=== PATIENT | female | born 1945 | race Caucasian/White ===

== ENCOUNTER → 2019-01-09 | Outpatient (CLI) | payer MEDICARE ==
--- NOTE | 2019-01-09 08:03 | US ---
EXAMINATION TYPE: US liver DATE OF EXAM: 01/09/2019 COMPARISON: NONE CLINICAL HISTORY: K74.60 Unspecified cirrhosis of liver. Pt states ETOH abuse x 60 yrs EXAM MEASUREMENTS: Liver Length: 14.0 cm Gallbladder Wall: 0.3 cm CBD: 0.9 cm Right Kidney: 10.6 x 5.3 x 4.8 cm Pancreas: wnl, tail obscured by overlying bowel gas Liver: Lobulated contour, prominent caudate lobe, coarse echotexture, PV and QUEZADA show hepatopedal marquez w Gallbladder: wall thickness upper limits of normal, small gallstones and polyp at fundus Evidence for sonographic Urbano's sign: No CBD: Dilated Right Kidney: wnl Visualized pancreas is felt within normal limits. Visualized liver is heterogeneously hyperechoic. Ev aluation for focal masses is suboptimal due to the heterogeneity. No suspicious intrahepatic ductal d ilatation is seen. Technologist documents satisfactory phasicity and hepatopedal flow within the hepa tic artery and satisfactory monophasic hepatopedal flow in the portal vein near conrad hepatis. No josh rounding ascites is seen. Common bile duct measures 9 mm which is mildly thickened. Gallbladder shows small mobile gallstones dependently. Wall thickness is upper limits of normal. No surrounding fluid is present. Sonographic Urbano's sign is negative. Limited images right kidney show no gross hydronep hrosis. IMPRESSION: Heterogeneous hyperechoic appearance of liver is likely product of underlying hepatocellu lar disease. No ascites evident currently. Mild dilated common bile duct present.
== END | disposition home or self-care (01) ==
LOC: RADUSWWP 07:11
PROVIDERS: ATTEND Family Medicine
DX: K83.8 Other specified diseases of biliary tract (principal)
CPT/HCPCS: 76705; 93976

== ENCOUNTER 2019-03-06 08:21 | Day surgery (SDC) | payer MEDICARE ==
[2019-03-04 13:36] VITALS: BMI 26.4
[~2019-03-06 08:21] MED LIST: DEXAMETHASONE SOD PHOSPHATE 10 MG/ML 1 ML VIAL IV ONE; HEPARIN SODIUM,PORCINE 5,000 UNIT/ML 1 ML VIAL SQ ONE; LACTATED RINGERS 1,000 ML IV SCH; LIDOCAINE 1% 20 ML VIAL (10MG/ML) FOR IV START INTRADERMA PRN; MIDAZOLAM (PF) 2 MG/2 ML VIAL IV PRN; ONDANSETRON 4 MG/2 ML VIAL IVP ONE; SCOPOLAMINE 1.5MG/72HR PATCH TRANSDERM ONE; ceFAZolin IN SWFI 2 GM/20 ML SYRINGE IVP ONE
[2019-03-06 08:46] VITALS: RESP 16
--- NOTE | 2019-03-06 10:10 | P.GSHP ---
History of Present Illness H&P Date: 03/06/19 Chief Complaint: Right upper quadrant pain This a 73-year-old female status post was run quadrant pain. Patient's workup found have gallstones. She was also today for laparoscopic cholecystectomy. Past Medical History Past Medical History: Liver Disease Additional Past Medical History / Comment(s): "BORDER LINE DIABETES"- WATCHES DIET., STATES "BAD LIVER" FROM ALCOHOL., ABD PAIN FROM GALL BLADDER. History of Any Multi-Drug Resistant Organisms: None Reported Past Surgical History: Orthopedic Surgery Additional Past Surgical History / Comment(s): knee surgery, nasal cautery. Past Anesthesia/Blood Transfusion Reactions: No Reported Reaction Past Psychological History: Anxiety Smoking Status: Never smoker Past Alcohol Use History: Heavy Additional Past Alcohol Use History / Comment(s): states no alcohol in 2 days, states usuallly 6 beers/day. Past Drug Use History: None Reported - Past Family History Father Family Medical History: Cancer Additional Family Medical History / Comment(s): stomach cancer Medications and Allergies Home Medications Medication Instructions Recorded Confirmed Type ALPRAZolam [Xanax] 0.25 mg PO BID 05/17/15 03/06/19 History Allergies Allergy/AdvReac Type Severity Reaction Status Date / Time diphenhydramine HCl Allergy OVER Verified 03/06/19 08:36 [From Benadryl] SEDATED Surgical - Exam Vital Signs Temp Pulse Resp BP Pulse Ox 97.2 F L 79 16 170/71 100 03/06/19 08:39 03/06/19 08:39 03/06/19 08:39 03/06/19 08:39 03/06/19 08:39 - General well developed, well nourished, no distress - Eyes PERRL - ENT normal pinna - Neck no masses - Respiratory normal expansion - Cardiovascular Rhythm: regular - Abdomen Abdomen: soft, non tender Assessment and Plan Assessment: Right quadrant pain Cholelithiasis We'll perform laparoscopic cholecystectomy.
[2019-03-06] MEDS ORDERED: LIDOCAINE 1% INJ 10MG/ML (20 ML MDV) ONE (10:32)
[2019-03-06] MEDS ORDERED: fentaNYL (PF) 50 MCG/ML 2 ML AMP ONE (10:32)
[2019-03-06] MEDS ORDERED: PROPOFOL 10 MG/ML 20 ML VIAL IV ONE (10:32)
[2019-03-06] MEDS ORDERED: MIDAZOLAM 2 MG/2 ML VIAL ONE (10:32)
[2019-03-06] MEDS ORDERED: ROCURONIUM BROMIDE 10 MG/ML 10 ML VIAL IV ONE (10:32)
[2019-03-06] MEDS ORDERED: BUPIVACAIN-EPI 0.5%-1:200,000 30 ML VIAL SQ ONE (10:58)
[2019-03-06] MEDS ORDERED: LACTATED RINGERS 1,000 ML IV ONE (11:12)
--- NOTE | 2019-03-06 11:41 | P.OP ---
Date of Procedure: 03/06/19 Preoperative Diagnosis: Cholecystitis Cholelithiasis Postoperative Diagnosis: Cholecystitis Cholelithiasis Cirrhosis Procedure(s) Performed: Laparoscopic cholecystectomy Anesthesia: ANANDA Surgeon: Reji Morales Estimated Blood Loss (ml): 30 Pathology: other (Gallbladder) Condition: stable Disposition: PACU Description of Procedure: The patient was placed on the operating table. The patient received a general endotracheal tube anesthesia. The patients abdomen was prepped and draped in the usual sterile fashion. Through an infraumbilical stab incision, the fascia of the anterior abdominal wall was grasped with a pair of Kochers and then the Veress needle was placed in the peritoneal cavity. Position of the Veress needle was confirmed with positive drop test. The abdomen was then insufflated. After adequate insufflation, the 10 mm trocar was placed in the peritoneal cavity. Following this the laparoscope was placed in the peritoneal cavity. The patient was placed in the head-up, right side up position and then a 5 mm trocar was placed in the right lateral and right subcostal position under direct visualization. A 8 mm trocar was placed in the epigastric position. There appeared to be serosal liver. The gallbladder was grasped in the fundus and infundibulum. Traction on the gallbladder was placed in the lateral and the cephalad positions. The triangle of Calot was visualized.. The cystic duct was bluntly dissected until the union of the cystic duct and common bile duct was seen. A critical view of safety was achieved. The cystic duct was then divided and sealed with the Harmonic scissors. A PDS Endoloop was then pl aced throughout the cystic duct stump. The cystic artery divided and sealed with the Harmonic scissors. The gallbladder was then removed from the liver bed using Harmonic scissors. The gallbladder was then extracted through the epigastric port site. Operative field was checked for any bleeding spots and Harmonic scissors was used to coagulate the liver bed. Cautery was used to coagulate the liver bed. There is no bleeding seen. The abdomen was irrigated. The trocars were removed. The skin was closed using interrupted 3-0 Vicryl suture. Dermabond dressing were applied. The patient tolerated the procedure well.
[2019-03-06 11:42] VITALS: TEMP 97.1
[2019-03-06] MEDS: HYDROmorphone 0.5 MG/0.5 ML SYRINGE IVP PRN ×2 (11:46→11:53)
[2019-03-06] MEDS ORDERED: HYDROcodone/APAP 7.5-325MG 1 EACH TAB PO ONE (12:35)
[2019-03-06 13:00] VITALS: BP 114/57; PULSE 64
== END 2019-03-06 14:06 | disposition home or self-care (01) ==
LOC: OR 08:21
PROVIDERS: ATTEND Surgery
DX: K80.12 Calculus of gallbladder with acute and chronic cholecystitis without obstruction (principal); R73.03 Prediabetes; E78.00 Pure hypercholesterolemia, unspecified; G47.00 Insomnia, unspecified; F41.0 Panic disorder [episodic paroxysmal anxiety]; F41.1 Generalized anxiety disorder; F10.20 Alcohol dependence, uncomplicated; K70.30 Alcoholic cirrhosis of liver without ascites; M17.12 Unilateral primary osteoarthritis, left knee; Z79.899 Other long term (current) drug therapy; Z88.8 Allergy status to other drugs, medicaments and biological substances
CPT/HCPCS: 88304; 47562; J2250 ×2; J1644; J1100; J2405; J2001; J3010; J2704; J1170; J0690

== ENCOUNTER 2019-08-05 10:56 | Emergency (ER) | payer MEDICARE ==
[2019-08-05 11:07] VITALS: RESP 18; TEMP 97.5
[2019-08-05] MEDS ORDERED: KETOROLAC 30 MG/ML 1 ML VIAL IM STA (11:26)
[2019-08-05 13:50] VITALS: BP 144/67; PULSE 86
--- NOTE | 2019-08-05 13:52 | XR ---
EXAMINATION TYPE: XR pelvis AP view, XR sacrum coccyx DATE OF EXAM: 08/05/2019 CLINICAL HISTORY: Fall with lower back pain, sacral and coccygeal pain. TECHNIQUE: A single AP view of the pelvis is obtained. 2 views of the sacrum were also obtained. COMPARISON: None. FINDINGS: There is 3 mm anterior subluxation of the second most distal coccygeal segment with 5 mm o f diastases. Pseudoarticulation is seen of the left L5 transverse process with the iliac bone. Sacroi liac joints demonstrate mild sclerosis but are maintained without widening and are overall symmetric. Moderate degenerative changes of the hips. Phleboliths noted in the pelvis. Degenerative changes of the lumbosacral junction are also moderate. IMPRESSION: Subluxation of the second most distal coccygeal segment with diastases.
--- NOTE | 2019-08-05 13:53 | ED ---
General Adult HPI - General Chief complaint: Extremity Injury, Lower Stated complaint: Fell hurt tailbone Time Seen by Provider: 08/05/19 11:20 Source: patient, RN notes reviewed Mode of arrival: ambulatory Limitations: no limitations - History of Present Illness Initial comments: 74-year-old female presents to the emergency department for a chief complaint of fall. Patient states that 3 days ago she fell while getting out of bed it. She states she hurt her tailbone. States it is painful to sit on. States it is painful to move around because of this. Denies any difficulty moving her hips or walking. Denies hitting her head. Denies any lumbar pain.Patient has no other complaints at this time including shortness of breath, chest pain, abdom inal pain, nausea or vomiting, headache, or visual changes. - Related Data Home Medications Medication Instructions Recorded Confirmed ALPRAZolam [Xanax] 0.5 mg PO BID PRN 08/05/19 08/05/19 Previous Rx's Medication Instructions Recorded HYDROcodone/APAP 5-325MG [[place] 1 tab PO Q6HR PRN #11 tab 08/05/19 5-325] Allergies Allergy/AdvReac Type Severity Reaction Status Date / Time diphenhydramine HCl Allergy OVER Verified 08/05/19 11:48 [From Benadryl] SEDATED Review of Systems ROS Statement: Those systems with pertinent positive or pertinent negative responses have been documented in the HPI. ROS Other: All systems not noted in ROS Statement are negative. Past Medical History Past Medical History: Liver Disease Additional Past Medical History / Comment(s): STATES "BAD LIVER" FROM ALCOHOL History of Any Multi-Drug Resistant Organisms: None Reported Past Surgical History: Cholecystectomy, Orthopedic Surgery Additional Past Surgical History / Comment(s): knee surgery, nasal cautery. Past Anesthesia/Blood Transfusion Reactions: No Reported Reaction Past Psychological History: Anxiety Smoking Status: Never smoker Past Alcohol Use History: Daily, Heavy Past Drug Use History: None Reported - Past Family History Father Family Medical History: Cancer Additional Family Medical History / Comment(s): stomach cancer General Exam Limitations: no limitations General appearance: alert, in no apparent distress Head exam: Present: atraumatic, normocephalic, normal inspection Eye exam: Present: normal appearance, PERRL, EOMI. Absent: scleral icterus, conjunctival injection, periorbital swelling ENT exam: Present: normal exam, mucous membranes moist Neck exam: Present: normal inspection, full ROM. Absent: tenderness, meningismus, lymphadenopathy Respiratory exam: Present: normal lung sounds bilaterally. Absent: respiratory distress, wheezes, rales, rhonchi, stridor Cardiovascular Exam: Present: regular rate, normal rhythm, normal heart sounds. Absent: systolic murmur, diastolic murmur, rubs, gallop, clicks GI/Abdominal exam: Present: soft, normal bowel sounds. Absent: distended, tenderness, guarding, rebound, rigid Extremities exam: Present: other (Patient ambulatory on lower extremities. Able to flex and extend both hips.) Back exam: Present: other (minimal ecchymosis noted over the coccygeal area). Absent: vertebral tenderness (no lumbar spine tenderness) Neurological exam: Present: alert Psychiatric exam: Present: normal affect, normal mood Course Vital Signs 08/05/19 08/05/19 11:04 13:48 Temperature 97.5 F L Pulse Rate 71 86 Respiratory 18 18 Rate Blood Pressure 116/63 144/67 O2 Sat by Pulse 97 97 Oximetry Medical Decision Making - Medical Decision Making X-ray of the coccyx shows a 3 mm anterior subluxation of the second most distal coccygeal segment. This is consistent with physical exam. Patient requesting something for pain and states [place] as helped in the past. Patient prescribed a small course of this. Recommended donut pillow. Recommended she follow up with primary care in return if she has any worsening symptoms. Disposition Clinical Impression: Fractured coccyx Disposition: HOME SELF-CARE Condition: Good Instructions (If sedation given, give patient instructions): Coccyx Injury (ED) Additional Instructions: Please take Motrin and Tylenol for pain. If pain is severe take [place]. Do not drive or operate machinery while taking this. Use donut pillow. Please follow- up with primary care in 1-2 days. Return to the emergency department if you have any worsening symptoms. Prescriptions: HYDROcodone/APAP 5-325MG [[place] 5-325] 1 tab PO Q6HR PRN #11 tab PRN Reason: Pain Is patient prescribed a controlled substance at d/c from ED?: Yes When asked, does pt state using other controlled substances?: No If prescribed controlled substance>3 days was MAPS reviewed?: Prescribed <3 Days If opioid is for acute pain is fill amount 7 days or less?: Yes If Rx opioid, was Start Talking consent form obtained?: Yes Referrals: Yvon Lentz MD [Primary Care Provider] - 1-2 days Time of Disposition: 14:10
== END 2019-08-05 14:29 | disposition home or self-care (01) ==
LOC: EC 10:56
DX: S32.2XXA Fracture of coccyx, initial encounter for closed fracture (principal); F41.9 Anxiety disorder, unspecified; Z88.8 Allergy status to other drugs, medicaments and biological substances; W06.XXXA Fall from bed, initial encounter
CPT/HCPCS: 72170; 72220; 99283; 96372; J1885

== ENCOUNTER 2019-10-27 11:31 | Emergency (ER) | payer MEDICARE ==
[2019-10-27 12:53] VITALS: TEMP 98.3
[2019-10-27] MEDS ORDERED: SODIUM CHLORIDE 0.9% 1,000 ML IV STA (13:25)
[2019-10-27] MEDS ORDERED: DIPH,PERTUS(ACELL)TETVAC-LF 0.5 ML VIAL IM ONE (13:26)
--- NOTE | 2019-10-27 13:29 | ED ---
General Adult HPI - General Chief complaint: Fall Stated complaint: fall/head lac & back pain Time Seen by Provider: 10/27/19 13:12 Source: patient Mode of arrival: ambulatory - History of Present Illness Initial comments: Dictation was produced using [employer] dictation software. please excuse any grammatical, word or spelling errors. Chief Complaint: 74-year-old female presents with head trauma History of Present Illness: 74-year-old female she presents to the emergency department after fall. Approximately 3 PM yesterday patient states she slipped and fell backwards. Patient states she's she's been feeling uneasy on her legs especially with ambulating all day yesterday. Patient states that after the fall she had a headache. 7 come to the emergency department yesterday. Today she states that she was urged by her daughter,. Patient did suffer a laceration over where she struck her head yesterday. She denies any neck pain. Denies any numbness and paresthesias. Denies any urinary complaints. Denies any cough. Denies any loss of consciousness. Denies any other complaints. The ROS documented in this emergency department record has been reviewed and confirmed by me. Those systems with pertinent positive or negative responses have been documented in the HPI. All other systems are other negative and/or noncontributory. PHYSICAL EXAM: General Impression: Alert and oriented x3, not in acute distress HEENT: 2 x 2 centimeters swelling over the right occiput with small 1 cm laceration, extra-ocular movements intact, pupils equal and reactive to light bilaterally, mucous membranes moist. Cardiovascular: Heart regular rate and rhythm, S1&S2 audible, no murmurs, rubs or gallops Chest: Lungs clear to auscultation bilaterally, no rhonchi, no wheeze, no rales Abdomen: Bowel sounds present, abdomen soft, non-tender, non-distended, no organomegaly Musculoskeletal: Pulses present and equal in all extremities, no peripheral edema Motor: no focal deficits noted Neurological: CN II-XII grossly intact, no focal motor or sensory deficits noted Skin: Intact with no visualized rashes Psych: Normal affect and mood ED course: 74-year-old female presents after fall. She complains of gait difficulties since yesterday which caused her to fall. Vital signs upon arrival are within acceptable limits. Medications reviewed. Patient is not on anticoagulation medications. Lab data evaluation obtained. Mild leukopenia of 3.4. Coag panel unremarkable. Metabolic panel is negative. No Acidosis. AST is 84. Urinalysis shows greater than 182 white blood cells. Serum alcohol is 124. Computed tomography scan of the shows negative head and C-spine CT. Lumbar CT shows acute comminuted slightly displaced fracture through anterior superior L1 vertebral involving both endplates. Discussed these findings with patient that we recommend admitting her to the hospital. She refuses. Patient understands that she has urinary tract infection and findings of acute fracture in her back that could get worse. Patient does have alcohol at slightly elevated however she is coherent and understandable and agreeable. She is in the company of her family who can take care of her. Patient requests that she be discharge. Risk and benefits were discussed. Patient was given 1 g of cephalexin prior to discharge. Patient will sign out AGAINST MEDICAL ADVICE. Risks, Benefits, and Treatment alternatives were discussed in detail with the p atient. The patient is alert and oriented X 3 and has the capacity to make an informed decision. The risks of increased morbidity including the possibly of were explained to and understood by the patient who is choosing to leave against medical advice. The patient is encouraged to return any time should they want further treatment and diagnostic investigation. EKG interpretation: Ventricular rate 64, normal sinus rhythm, KS interval 200, QRS 86, QTC 445. No KS prolongation, no QTC prolongation, no ST or T-wave changes noted. EKG compared to a 05/17/2015 showing no changes. Overall, this EKG is unremarkable - Related Data Home Medications Medication Instructions Recorded Confirmed ALPRAZolam [Xanax] 0.25 - 0.5 mg PO DAILY PRN 08/05/19 10/27/19 Previous Rx's Medication Instructions Recorded Cephalexin [Keflex] 500 mg PO Q6HR 5 Days #20 cap 10/27/19 Allergies Allergy/AdvReac Type Severity Reaction Status Date / Time diphenhydramine HCl Allergy OVER Verified 10/27/19 15:05 [From Benadryl] SEDATED acetaminophen [From Tylenol] AdvReac Abn liver Verified 10/27/19 15:05 function Review of Systems ROS Statement: Those systems with pertinent positive or pertinent negative responses have been documented in the HPI. ROS Other: All systems not noted in ROS Statement are negative. Past Medical History Past Medical History: Liver Disease Additional Past Medical History / Comment(s): STATES "BAD LIVER" FROM ALCOHOL History of Any Multi-Drug Resistant Organisms: None Reported Past Surgical History: Cholecystectomy, Orthopedic Surgery Additional Past Surgical History / Comment(s): knee surgery, nasal cautery. Past Anesthesia/Blood Transfusion Reactions: No Reported Reaction Past Psychological History: Anxiety, Panic Disorder Smoking Status: Never smoker Past Alcohol Use History: Daily, Heavy Past Drug Use History: None Reported - Past Family History Father Family Medical History: Cancer Additional Family Medical History / Comment(s): stomach cancer Course Vital Signs 10/27/19 12:47 Temperature 98.3 F Pulse Rate 68 Respiratory 18 Rate Blood Pressure 143/86 O2 Sat by Pulse 99 Oximetry Medical Decision Making - Lab Data Result diagrams: 10/27/19 13:32 10/27/19 13:32 Lab Results 10/27/19 10/27/19 10/27/19 Range/Units 13:32 13:32 13:32 WBC 3.4 L (3.8-10.6) k/uL RBC 4.19 (3.80-5.40) m/uL Hgb 13.1 (11.4-16.0) gm/dL Hct 40.7 (34.0-46.0) % MCV 97.2 (80.0-100.0) fL MCH 31.2 (25.0-35.0) pg MCHC 32.1 (31.0-37.0) g/dL RDW 14.5 (11.5-15.5) % Plt Count 100 L (150-450) k/uL Neutrophils % 69 % Lymphocytes % 21 % Monocytes % 6 % Eosinophils % 2 % Basophils % 0 % Neutrophils # 2.4 (1.3-7.7) k/uL Lymphocytes # 0.7 L (1.0-4.8) k/uL Monocytes # 0.2 (0-1.0) k/uL Eosinophils # 0.1 (0-0.7) k/uL Basophils # 0.0 (0-0.2) k/uL PT 13.2 H (9.0-12.0) sec INR 1.3 H (<1.2) APTT 29.0 (22.0-30.0) sec Sodium 135 L (137-145) mmol/L Potassium 4.2 (3.5-5.1) mmol/L Chloride 100 (98-107) mmol/L Carbon Dioxide 30 (22-30) mmol/L Anion Gap 5 mmol/L BUN 12 (7-17) mg/dL Creatinine 0.55 (0.52-1.04) mg/dL Est GFR (CKD-EPI)AfAm >90 (>60 ml/min/1.73 sqM) Est GFR (CKD-EPI)NonAf >90 (>60 ml/min/1.73 sqM) Glucose 81 (74-99) mg/dL Calcium 8.8 (8.4-10.2) mg/dL Magnesium 1.8 (1.6-2.3) mg/dL Total Bilirubin 1.2 (0.2-1.3) mg/dL AST 84 H (14-36) U/L ALT 33 (4-34) U/L Alkaline Phosphatase 306 H (38-126) U/L Total Protein 8.0 (6.3-8.2) g/dL Albumin 3.6 (3.5-5.0) g/dL Urine Color Urine Appearance (Clear) Urine pH (5.0-8.0) Ur Specific [place] (1.001-1.035) Urine Protein (Negative) Urine Glucose (UA) (Negative) Urine Ketones (Negative) Urine Blood (Negative) Urine Nitrite (Negative) Urine Bilirubin (Negative) Urine Urobilinogen (<2.0) mg/dL Ur Leukocyte Esterase (Negative) Urine RBC (0-5) /hpf Urine WBC (0-5) /hpf Urine WBC Clumps (None) /hpf Ur Squamous Epith Cells (0-4) /hpf Urine Bacteria (None) /hpf Serum Alcohol 124 mg/dL 10/27/19 Range/Units 13:36 WBC (3.8-10.6) k/uL RBC (3.80-5.40) m/uL Hgb (11.4-16.0) gm/dL Hct (34.0-46.0) % MCV (80.0-100.0) fL MCH (25.0-35.0) pg MCHC (31.0-37.0) g/dL RDW (11.5-15.5) % Plt Count (150-450) k/uL Neutrophils % % Lymphocytes % % Monocytes % % Eosinophils % % Basophils % % Neutrophils # (1.3-7.7) k/uL Lymphocytes # (1.0-4.8) k/uL Monocytes # (0-1.0) k/uL Eosinophils # (0-0.7) k/uL Basophils # (0-0.2) k/uL PT (9.0-12.0) sec INR (<1.2) APTT (22.0-30.0) sec Sodium (137-145) mmol/L Potassium (3.5-5.1) mmol/L Chloride (98-107) mmol/L Carbon Dioxide (22-30) mmol/L Anion Gap mmol/L BUN (7-17) mg/dL Creatinine (0.52-1.04) mg/dL Est GFR (CKD-EPI)AfAm (>60 ml/min/1.73 sqM) Est GFR (CKD-EPI)NonAf (>60 ml/min/1.73 sqM) Glucose (74-99) mg/dL Calcium (8.4-10.2) mg/dL Magnesium (1.6-2.3) mg/dL Total Bilirubin (0.2-1.3) mg/dL AST (14-36) U/L ALT (4-34) U/L Alkaline Phosphatase (38-126) U/L Total Protein (6.3-8.2) g/dL Albumin (3.5-5.0) g/dL Urine Color Yellow Urine Appearance Cloudy H (Clear) Urine pH 6.0 (5.0-8.0) Ur Specific [place] 1.005 (1.001-1.035) Urine Protein Negative (Negative) Urine Glucose (UA) Negative (Negative) Urine Ketones Negative (Negative) Urine Blood Trace H (Negative) Urine Nitrite Negative (Negative) Urine Bilirubin Negative (Negative) Urine Urobilinogen <2.0 (<2.0) mg/dL Ur Leukocyte Esterase Large H (Negative) Urine RBC 3 (0-5) /hpf Urine WBC >182 H (0-5) /hpf Urine WBC Clumps Many H (None) /hpf Ur Squamous Epith Cells 1 (0-4) /hpf Urine Bacteria Many H (None) /hpf Serum Alcohol mg/dL Disposition Clinical Impression: Vertebral fracture, Urinary tract infection Disposition: Left Against Medical Advice Condition: Fair Instructions (If sedation given, give patient instructions): Fall Prevention for Older Adults (ED), Urinary Tract Infection in Women (ED) Prescriptions: Cephalexin [Keflex] 500 mg PO Q6HR 5 Days #20 cap Is patient prescribed a controlled substance at d/c from ED?: No Referrals: Yvon Lentz MD [Primary Care Provider] - 1-2 days Time of Disposition: 15:41
[2019-10-27 13:52] LABS: Basophils % (A) 0 %; Eosinophils # (A) 0.1 k/uL (0-0.7); Eosinophils % (A) 2 %; HCT 40.7 % (34.0-46.0); HGB 13.1 gm/dL (11.4-16.0); Lymphocytes # (A) 0.7 k/uL (1.0-4.8); Lymphocytes % (A) 21 %; MCH 31.2 pg (25.0-35.0); MCHC 32.1 g/dL (31.0-37.0); MCV 97.2 fL (80.0-100.0); Mean Platelet Volume 7.5; Monocytes # (A) 0.2 k/uL (0-1.0); Monocytes % (A) 6 %; Neutrophils # (A) 2.4 k/uL (1.3-7.7); Neutrophils % (A) 69 %; Platelet Count 100 k/uL (150-450); RBC 4.19 m/uL (3.80-5.40); RDW 14.5 % (11.5-15.5); WBC 3.4 k/uL (3.8-10.6)
[2019-10-27 14:01] LABS: ALT 33 U/L (4-34); AST 84 U/L (14-36); African American GFR (CKD) >90 (>60 ml/min/1.73 sqM); Albumin 3.6 g/dL (3.5-5.0); Alkaline Phosphatase 306 U/L (38-126); Anion Gap 5 mmol/L; Blood Urea Nitrogen 12 mg/dL (7-17); Calcium 8.8 mg/dL (8.4-10.2); Carbon Dioxide 30 mmol/L (22-30); Chloride 100 mmol/L (98-107); Glucose 81 mg/dL (74-99); Magnesium 1.8 mg/dL (1.6-2.3); Non-African American GFR(CKD) >90 (>60 ml/min/1.73 sqM); Potassium 4.2 mmol/L (3.5-5.1); Sodium 135 mmol/L (137-145); Total Bilirubin 1.2 mg/dL (0.2-1.3)
[2019-10-27 14:04] LABS: Appearance,Urine Cloudy (Clear); Bacteria,Urine Many /hpf; Bilirubin,Urine Negative (Negative); Blood,Urine Trace (Negative); Color,Urine Yellow; Glucose,Urine (UA) Negative (Negative); Ketones,Urine Negative (Negative); Leukocyte Esterase,Urine Large (Negative); Nitrite,Urine Negative (Negative); Protein,Urine Negative (Negative); RBC,Urine 3 /hpf (0-5); Specific Gravity,Urine 1.005 (1.001-1.035); Squamous Epithelial Cell,Urine 1 /hpf (0-4); Urobilinogen,Urine <2.0 mg/dL (<2.0); WBC,Urine >182 /hpf (0-5)
[2019-10-27 14:08] LABS: INR 1.3 (<1.2); Prothrombin Time 13.2 sec (9.0-12.0)
[2019-10-27 14:11] LABS: Alcohol 124 mg/dL
[2019-10-27] MEDS ORDERED: cefTRIAXone IN SWFI 1,000 MG/10 ML SYRINGE IVP STA (14:14)
--- NOTE | 2019-10-27 14:25 | CT ---
EXAMINATION TYPE: CT brain yunior reynolds con DATE OF EXAM: 10/27/2019 COMPARISON: NONE HISTORY: Fall yesterday. Posterior head injury with headache, neck and back pain CT DLP: 1269.4 mGycm. Automated Exposure Control for Dose Reduction was Utilized. TECHNIQUE: CT scan of the head and cervical spine are performed without contrast. FINDINGS: There is no acute intracranial hemorrhage or midline shift identified. Diffuse ventricula r and sulcal prominence. Low attenuation in deep and periventricular white matter. Small focus of ca lcification high right frontoparietal junction could reflect 6 mm calcified meningioma axial image 41 . The globes are intact and the visualized sinuses are clear. The calvarium is intact. Small to moder ate-sized acute left parietal-occipital scalp hematoma near axial image 42 for reference. Cervical spine is visualized in its entirety from C1 through upper thoracic levels and demonstrates s traightened alignment without evidence of acute fracture or dislocation. Prevertebral soft tissue ap pears within normal limits. The C1-C2 articulation is within normal limits on the coronal images. S light dextroconvex scoliotic curvature. Vertebral body heights and disc space heights are maintained. Spinal canal is preserved. Thyroid gland within normal limits. Lung apices are clear. IMPRESSION: 1. There is no acute fracture or dislocation evident in the cervical spine. 2. No acute intracranial hemorrhage or midline shift is seen. Small to moderate-sized acute left morteza etal-occipital scalp hematoma.
--- NOTE | 2019-10-27 14:30 | CT ---
EXAMINATION TYPE: CT lumbar spine wo con DATE OF EXAM: 10/27/2019 2:15 PM COMPARISON: None. HISTORY: Fall yesterday. Posterior head injury with headache, neck and back pain CT DLP: 801.5 mGycm Automated exposure control for dose reduction was used. Unenhanced CT of the lumbar spine was performed. Bone and soft tissue window settings are submitted as well as coronal and sagittal reconstructions. There are 5 lumbar-type vertebra. There is acute comminuted minimally displaced fracture through the anterior superior L1 vertebra involving both endplates without significant height loss currently. No suspicious posterior retropulsion. Moderate to severe disc space narrowing and spurring lumbosacral j unction. This space heights otherwise maintained. Spinal canal grossly preserved with small posterior disc herniations efface the anterior thecal sac L2-L3 through the L5-S1 levels. [id number] fac et arthropathy L3-L4 through the L5-S1 levels on sagittal images. Acute fracture confirmed axial imag es 16 through 20. Visualized abdomen shows mild mesenteric edema with lobulated contour to visualize liver and suspected splenomegaly. IMPRESSION: 1. Acute comminuted slightly displaced fracture through the anterior superior L1 vertebra involving b oth endplates without significant height loss or posterior endplate involvement or retropulsion. 2. Suspect underlying cirrhosis and portal hypertension or splenomegaly. Correlate clinically.
[2019-10-27 15:46] VITALS: BP 118/74; PULSE 80; RESP 16
== END 2019-10-27 15:47 | disposition left against medical advice (07) ==
LOC: EC 11:31
DX: S32.019A Unspecified fracture of first lumbar vertebra, initial encounter for closed fracture (principal); N39.0 Urinary tract infection, site not specified; S00.01XA Abrasion of scalp, initial encounter; D72.819 Decreased white blood cell count, unspecified; R26.9 Unspecified abnormalities of gait and mobility; Z88.6 Allergy status to analgesic agent; Z88.8 Allergy status to other drugs, medicaments and biological substances; Y90.6 Blood alcohol level of 120-199 mg/100 ml; Z23 Encounter for immunization; W01.0XXA Fall on same level from slipping, tripping and stumbling without subsequent striking against object, initial encounter; Y92.009 Unspecified place in unspecified non-institutional (private) residence as the place of occurrence of the external cause; Z53.20 Procedure and treatment not carried out because of patient's decision for unspecified reasons
CPT/HCPCS: 99284 ×2; 96374 ×2; 96361 ×3; 90471 ×2; 36415; 93005; 80053; 83735; 85025; 85610; 85730; 81001; 87086; 72125; 72131; 70450; 90715; G0480; J0696; 80320

== ENCOUNTER → 2019-11-13 | Outpatient (CLI) | payer MEDICARE ==
[2019-11-13 08:07] LABS: Albumin 3.3 g/dL (3.5-5.0); Bilirubin, Delta 0.6 mg/dL (0.0-0.2); Bilirubin,Unconjugated 1.4 mg/dL (0.0-1.1); Total Protein 7.4 g/dL (6.3-8.2)
--- NOTE | 2019-11-13 09:13 | US ---
EXAMINATION TYPE: US abdomen limited DATE OF EXAM: 11/13/2019 COMPARISON: 01/09/2019 CLINICAL HISTORY: K74.60 Unspecified cirrhosis of liver. alcoholic cirrhosis, cholecystectomy, no sym ptoms EXAM MEASUREMENTS: Liver Length: 13.7 cm Gallbladder Wall: N/A CBD: 0.9 cm Right Kidney: 10.3 x 4.4 x 5.9 cm Pancreas: wnl Liver: Heterogenous cirrhotic morphology of the liver with nodular contour and atrophy, hepatopedal f low seen within PV/QUEZADA. Heterogenous echotexture of the liver limits evaluation for hepatic masses. Gallbladder: Surgically absent Evidence for sonographic Urbano's sign: no CBD: wnl Right Kidney: wnl IMPRESSION: Cirrhotic morphology of the liver. Diffuse heterogeneity limits evaluation for hepatic ma sses. No perihepatic ascites seen. Current appropriate hepatopedal flow within the hepatic artery and portal vein.
== END | disposition home or self-care (01) ==
LOC: RADUSWWP 07:16
PROVIDERS: ATTEND Family Medicine
DX: K74.60 Unspecified cirrhosis of liver (principal); N39.0 Urinary tract infection, site not specified; I10 Essential (primary) hypertension; B89 Unspecified parasitic disease
CPT/HCPCS: 36415; 76705; 80076; 82140

== ENCOUNTER → 2019-11-20 | Outpatient (CLI) | payer MEDICARE ==
[2019-11-20 16:37] LABS: African American GFR (CKD) 102.6 (60.0-200.0); Non-African American GFR(CKD) 88.5 (60.0-200.0); Potassium 4.4 mmol/L (3.5-5.5)
== END | disposition home or self-care (01) ==
LOC: LABWHC1 10:50
PROVIDERS: ATTEND Family Medicine
DX: I10 Essential (primary) hypertension (principal); N39.0 Urinary tract infection, site not specified; Z79.899 Other long term (current) drug therapy
CPT/HCPCS: 36415; 80051; 82140; 82565; 84520; 87086

== ENCOUNTER 2020-03-25 04:02 | Observation (INO) | payer MEDICARE ==
[2020-03-25] MEDS ORDERED: MORPHINE SULFATE 4 MG/ML SYRINGE IV STA (04:38)
[2020-03-25] MEDS ORDERED: ONDANSETRON 4 MG/2 ML VIAL IVP STA (04:39)
--- NOTE | 2020-03-25 04:41 | ED ---
Abdominal Pain HPI - General Chief Complaint: Abdominal Pain Stated Complaint: Abd pain Time Seen by Provider: 03/25/20 04:15 Source: patient, EMS Mode of arrival: EMS Limitations: no limitations - History of Present Illness MD Complaint: abdominal pain Onset/Timin -: hour(s) Location: LUQ, RUQ Radiation: none Migration to: no migration Severity: moderate Quality: aching Consistency: constant Improves With: nothing Worsens With: nothing Associated Symptoms: nausea, vomiting, diarrhea - Related Data Home Medications Medication Instructions Recorded Confirmed ALPRAZolam [Xanax] 0.25 - 0.5 mg PO DAILY PRN 08/05/19 03/25/20 Furosemide [Lasix] 20 mg PO DAILY 03/25/20 03/25/20 Potassium Chloride ER [K-Dur 10] 10 meq PO DAILY 03/25/20 03/25/20 Allergies Allergy/AdvReac Type Severity Reaction Status Date / Time diphenhydramine HCl Allergy OVER Verified 03/25/20 18:40 [From Benadryl] SEDATED acetaminophen [From Tylenol] AdvReac Abn liver Verified 03/25/20 18:40 function Review of Systems ROS Statement: Those systems with pertinent positive or pertinent negative responses have been documented in the HPI. ROS Other: All systems not noted in ROS Statement are negative. Constitutional: Denies: fever, chills Respiratory: Denies: cough, dyspnea Cardiovascular: Denies: chest pain, palpitations, edema Gastrointestinal: Reports: abdominal pain, nausea, vomiting, diarrhea. Denies: constipation, hematemesis, melena, hematochezia Genitourinary: Denies: dysuria, hematuria Musculoskeletal: Denies: back pain Skin: Denies: rash Neurological: Denies: headache, weakness, numbness Past Medical History Past Medical History: Liver Disease Additional Past Medical History / Comment(s): STATES "BAD LIVER" FROM ALCOHOL History of Any Multi-Drug Resistant Organisms: None Reported Past Surgical History: Cholecystectomy, Orthopedic Surgery Additional Past Surgical History / Comment(s): knee surgery, nasal cautery. Past Anesthesia/Blood Transfusion Reactions: No Reported Reaction Past Psychological History: Anxiety, Panic Disorder Smoking Status: Never smoker Past Alcohol Use History: Daily, Heavy Past Drug Use History: None Reported - Past Family History Father Family Medical History: Cancer Additional Family Medical History / Comment(s): stomach cancer General Exam Limitations: no limitations General appearance: alert, in no apparent distress Head exam: Present: atraumatic, normocephalic Respiratory exam: Present: normal lung sounds bilaterally. Absent: respiratory distress, wheezes, rales, rhonchi, stridor Cardiovascular Exam: Present: regular rate, normal rhythm, normal heart sounds. Absent: systolic murmur, diastolic murmur, rubs, gallop GI/Abdominal exam: Present: soft, tenderness, normal bowel sounds, hernia (Patient has moderate sized epigastric hernia, reducible, without tenderness or guarding.). Absent: distended, guarding, rebound, rigid, mass, pulsatile mass Extremities exam: Present: normal inspection, normal capillary refill. Absent: pedal edema, calf tenderness Back exam: Present: normal inspection. Absent: CVA tenderness (R), CVA tenderness (L) Neurological exam: Present: alert Skin exam: Present: warm, dry, intact, normal color. Absent: rash Course Vital Signs 03/25/20 03/25/20 03/25/20 04:21 08:00 09:00 Temperature 98.7 F Pulse Rate 81 81 81 Respiratory 18 18 18 Rate Blood Pressure 124/67 121/70 121/70 O2 Sat by Pulse 98 98 98 Oximetry 03/25/20 03/25/20 03/25/20 10:00 11:00 12:00 Temperature Pulse Rate 78 Respiratory 18 18 18 Rate Blood Pressure 120/65 O2 Sat by Pulse 98 98 98 Oximetry 03/25/20 03/25/20 03/25/20 13:00 14:00 14:43 Temperature Pulse Rate 78 78 Respiratory 18 18 18 Rate Blood Pressure 123/82 123/82 O2 Sat by Pulse 98 98 98 Oximetry Medical Decision Making - Medical Decision Making Patient 75-year-old woman who is complaining of bilateral upper abdominal pain as well as nausea. She does have multiple hernias that on the exam do not appear to be strangulated. The patient's CT does show what appears to be ileus versus evolving bowel obstruction. The patient does feel markedly better following medication here. Discussed the findings with her and will admit with surgical consultation to Dr. Morales, who had performed her cholecystectomy. Case discussed with him and he will see the patient - Lab Data Result diagrams: 03/25/20 04:55 03/25/20 04:55 Lab Results 03/25/20 03/25/20 03/25/20 Range/Units 04:55 04:55 05:05 WBC 3.2 L (3.8-10.6) k/uL RBC 3.84 (3.80-5.40) m/uL Hgb 12.1 (11.4-16.0) gm/dL Hct 37.9 (34.0-46.0) % MCV 98.8 (80.0-100.0) fL MCH 31.6 (25.0-35.0) pg MCHC 32.0 (31.0-37.0) g/dL RDW 16.1 H (11.5-15.5) % Plt Count 92 L (150-450) k/uL Neutrophils % 78 % Lymphocytes % 11 % Monocytes % 8 % Eosinophils % 1 % Basophils % 0 % Neutrophils # 2.5 (1.3-7.7) k/uL Lymphocytes # 0.3 L (1.0-4.8) k/uL Monocytes # 0.2 (0-1.0) k/uL Eosinophils # 0.0 (0-0.7) k/uL Basophils # 0.0 (0-0.2) k/uL Manual Slide Review Performed Poikilocytosis (manual Present Anisocytosis Slight Anisocytosis (manual) Present Macrocytosis Slight Sodium 132 L (137-145) mmol/L Potassium 4.0 (3.5-5.1) mmol/L Chloride 99 (98-107) mmol/L Carbon Dioxide 24 (22-30) mmol/L Anion Gap 9 mmol/L BUN 8 (7-17) mg/dL Creatinine 0.50 L (0.52-1.04) mg/dL Est GFR (CKD-EPI)AfAm >90 (>60 ml/min/1.73 sqM) Est GFR (CKD-EPI)NonAf >90 (>60 ml/min/1.73 sqM) Glucose 121 H (74-99) mg/dL Calcium 9.6 (8.4-10.2) mg/dL Total Bilirubin 2.1 H (0.2-1.3) mg/dL AST 55 H (14-36) U/L ALT 22 (4-34) U/L Alkaline Phosphatase 174 H (38-126) U/L Total Protein 7.6 (6.3-8.2) g/dL Albumin 3.4 L (3.5-5.0) g/dL Amylase 75 (30-110) U/L Lipase 162 (23-300) U/L Urine Color Yellow Urine Appearance Cloudy H (Clear) Urine pH 5.5 (5.0-8.0) Ur Specific Rindge 1.019 (1.001-1.035) Urine Protein Trace H (Negative) Urine Glucose (UA) Negative (Negative) Urine Ketones Trace H (Negative) Urine Blood Trace H (Negative) Urine Nitrite Negative (Negative) Urine Bilirubin Negative (Negative) Urine Urobilinogen <2.0 (<2.0) mg/dL Ur Leukocyte Esterase Large H (Negative) Urine RBC 3 (0-5) /hpf Urine WBC >182 H (0-5) /hpf Urine WBC Clumps Few H (None) /hpf Ur Squamous Epith Cells 2 (0-4) /hpf Uric Acid Crystals Many H (None) /hpf Urine Bacteria Rare H (None) /hpf Hyaline Casts 16 H (0-2) /lpf Urine Mucus Occasional H (None) /hpf Disposition Clinical Impression: Abdominal pain, Ileus, Urinary tract infection Disposition: ADMITTED IP TO THIS HOSP Condition: Fair Is patient prescribed a controlled substance at d/c from ED?: No
[2020-03-25 05:26] LABS: Anisocytosis Slight; Basophils % (A) 0 %; Eosinophils % (A) 1 %; HCT 37.9 % (34.0-46.0); HGB 12.1 gm/dL (11.4-16.0); Lymphocytes # (A) 0.3 k/uL (1.0-4.8); Lymphocytes % (A) 11 %; MCH 31.6 pg (25.0-35.0); MCV 98.8 fL (80.0-100.0); Macrocytosis Slight; Mean Platelet Volume 8.6; Monocytes # (A) 0.2 k/uL (0-1.0); Monocytes % (A) 8 %; Neutrophils # (A) 2.5 k/uL (1.3-7.7); Neutrophils % (A) 78 %; RBC 3.84 m/uL (3.80-5.40); RDW 16.1 % (11.5-15.5); WBC 3.2 k/uL (3.8-10.6)
[2020-03-25 05:40] LABS: Appearance,Urine Cloudy (Clear); Bacteria,Urine Rare /hpf; Bilirubin,Urine Negative (Negative); Blood,Urine Trace (Negative); Color,Urine Yellow; Glucose,Urine (UA) Negative (Negative); Hyaline Casts,Urine 16 /lpf (0-2); Ketones,Urine Trace (Negative); Leukocyte Esterase,Urine Large (Negative); Mucus,Urine Occasional /hpf; Nitrite,Urine Negative (Negative); PH, Urine 5.5 (5.0-8.0); Protein,Urine Trace (Negative); RBC,Urine 3 /hpf (0-5); Specific Gravity,Urine 1.019 (1.001-1.035); Squamous Epithelial Cell,Urine 2 /hpf (0-4); Uric Acid Crystals,Urine Many /hpf; Urobilinogen,Urine <2.0 mg/dL (<2.0); WBC,Urine >182 /hpf (0-5)
[2020-03-25 05:46] LABS: ALT 22 U/L (4-34); African American GFR (CKD) >90 (>60 ml/min/1.73 sqM); Albumin 3.4 g/dL (3.5-5.0); Amylase 75 U/L (30-110); Anion Gap 9 mmol/L; Blood Urea Nitrogen 8 mg/dL (7-17); Calcium 9.6 mg/dL (8.4-10.2); Carbon Dioxide 24 mmol/L (22-30); Chloride 99 mmol/L (98-107); Glucose 121 mg/dL (74-99); Lipase 162 U/L (23-300); Non-African American GFR(CKD) >90 (>60 ml/min/1.73 sqM); Sodium 132 mmol/L (137-145); Total Bilirubin 2.1 mg/dL (0.2-1.3); Total Protein 7.6 g/dL (6.3-8.2)
[2020-03-25 05:59] LABS: AST 55 U/L (14-36)
[2020-03-25 06:00] LABS: Alkaline Phosphatase 174 U/L (38-126)
--- NOTE | 2020-03-25 06:01 | CT ---
EXAMINATION TYPE: CT abdomen pelvis wo con DATE OF EXAM: 03/25/2020 COMPARISON: None HISTORY: General Abd Pain CT DLP: 607.20 mGycm Automated exposure control for dose reduction was used. Exam performed with no contrast. Lung bases are clear of infiltrate. There is no pleural effusion. Heart is top normal in size. There is no pericardial effusion. Liver shows no focal defect. There is mild abdominal ascites. Spleen appears enlarged and measures 14 .5 cm. There is no evidence of pancreatic mass. The stomach is intact. There is no adrenal mass. Kidneys have normal size. There is no hydronephrosis. Ureters are not dilat ed. Bladder distends smoothly. There are phleboliths in the pelvis. There are bilateral inguinal edis ias that contain ascites fluid. I do not see a definite herniation of the small bowel into the larger hernia on the right side. There is epigastric ventral hernia that contains dilated small bowel but n o incarceration. There are multiple dilated air and fluid-filled loops of small bowel throughout the abdomen. Small jesi wel measures up to 3.4 cm. Appendix appears normal. Large bowel has normal size. There is large bowel fluid down to the rectum. I do not see a transition point of the small bowel dilation. This extends to the terminal ileum. No evidence of free air. There are spondylotic changes at L5-S1 level. There is 15% depression of the superior endplate of L1 that appears old. Fracture is demonstrated is acute on the old exam of 10/27/2019. The bony pelvis is intact. IMPRESSION: There is mild abdominal ascites. There is splenomegaly. No dilated ducts. No focal liver defect. Diffusely dilated small bowel with fluid levels. There is also fluid in the large bowel down to the r ectum. Appearance more consistent with generalized ileus and diarrhea. I do not see a transition poin t. Epigastric ventral hernia and bilateral inguinal hernias. I do not see convincing evidence for rig ht inguinal incarcerated hernia.
[2020-03-25] MEDS ORDERED: NALOXONE 0.4 MG/ML 1 ML VIAL IV PRN (06:41)
[2020-03-25 07:48] LABS: Platelet Count 92 k/uL (150-450)
[2020-03-25 07:49] LABS: Anisocytosis (M) Present; Poikilocytosis (M) Present
[2020-03-25] MEDS: SODIUM CHLORIDE 0.9% 1,000 ML IV SCH ×2 (09:45→15:26)
--- NOTE | 2020-03-25 12:21 | P.GSCN ---
History of Present Illness Consult date: 03/25/20 Reason for Consult: Abdominal pain Requesting physician: Lamine Mancera History of present illness: CHIEF COMPLAINT: Abdominal pain HISTORY OF PRESENT ILLNESS: 75-year-old female who presented to emergency room with a chief complaint of abdominal pain. Patient examined in the emergency room with Dr. Morales. Patient states she is comfortable at this time. She denies nausea or vomiting. Denies diarrhea or constipation. PAST MEDICAL HISTORY: See list. PAST SURGICAL HISTORY: See list. SOCIAL HISTORY: No illicit drug use. REVIEW OF SYSTEMS: CONSTITUTIONAL: Denies fever or chills. HEENT: Denies blurred vision, vision changes, or eye pain. Denies hemoptysis CARDIOVASCULAR: Denies chest pain or pressure. RESPIRATORY: No shortness of breath. GASTROINTESTINAL: Refer to HPI for pertinent findings HEMATOLOGIC: Denies bleeding disorders. GENITOURINARY: Denies any blood in urine. SKIN: Denies pruitis. Denies rash. PHYSICAL EXAM: VITAL SIGNS: Reviewed. GENERAL: Well-developed in no acute distress. HEENT: No sclera icterus. Extraocular movements grossly intact. Moist buccal mucosa. Head is atraumatic, normocephalic. ABDOMEN: Soft. Nondistended. Minimal tenderness with palpation. Patient with bilateral inguinal hernias. NEUROLOGIC: Alert and oriented. Cranial nerves II through XII grossly intact. LABORATORY DATA: WBC 3.2. Hemoglobin 12.1. Platelet count 92. IMAGING: CT abdomen and pelvis: Mild abdominal ascites. Splenomegaly. Diffusely dilated small bowel with fluid levels. Also fluid in the large bowel down to the rectum. Appearance more consistent with generalized ileus and diarrhea. No transition point. Epigastric ventral hernia and bilateral ventral hernias. ASSESSMENT: 1. Abdominal pain 2. Bilateral inguinal hernia 3. Ventral hernia PLAN: Clear liquid diet. Nothing by mouth at midnight Patient to undergo repair of bilateral inguinal hernias tomorrow with Dr. Morales Nurse practitioner note has been reviewed by physician. Signing provider agrees with the documented findings, assessment, and plan of care. Past Medical History Past Medical History: Liver Disease Additional Past Medical History / Comment(s): STATES "BAD LIVER" FROM ALCOHOL History of Any Multi-Drug Resistant Organisms: None Reported Past Surgical History: Cholecystectomy, Orthopedic Surgery Additional Past Surgical History / Comment(s): knee surgery, nasal cautery. Past Anesthesia/Blood Transfusion Reactions: No Reported Reaction Past Psychological History: Anxiety, Panic Disorder Smoking Status: Never smoker Past Alcohol Use History: Daily, Heavy Past Drug Use History: None Reported - Past Family History Father Family Medical History: Cancer Additional Family Medical History / Comment(s): stomach cancer Medications and Allergies Home Medications Medication Instructions Recorded Confirmed Type ALPRAZolam [Xanax] 0.25 - 0.5 mg PO DAILY PRN 08/05/19 10/27/19 History Cephalexin [Keflex] 500 mg PO Q6HR 5 Days #20 cap 10/27/19 Rx Allergies Allergy/AdvReac Type Severity Reaction Status Date / Time diphenhydramine HCl Allergy OVER Verified 03/25/20 04:26 [From Benadryl] SEDATED acetaminophen [From Tylenol] AdvReac Abn liver Verified 03/25/20 04:26 function Surgical - Exam Vital Signs Temp Pulse Resp BP Pulse Ox 98.7 F 81 18 124/67 98 03/25/20 04:21 03/25/20 04:21 03/25/20 04:21 03/25/20 04:21 03/25/20 04:21 Results - Labs 03/25/20 04:55 03/25/20 04:55 Abnormal Lab Results - Last 24 Hours (Table) 03/25/20 03/25/20 03/25/20 Range/Units 04:55 04:55 05:05 WBC 3.2 L (3.8-10.6) k/uL RDW 16.1 H (11.5-15.5) % Plt Count 92 L (150-450) k/uL Lymphocytes # 0.3 L (1.0-4.8) k/uL Sodium 132 L (137-145) mmol/L Creatinine 0.50 L (0.52-1.04) mg/dL Glucose 121 H (74-99) mg/dL Total Bilirubin 2.1 H (0.2-1.3) mg/dL AST 55 H (14-36) U/L Alkaline Phosphatase 174 H (38-126) U/L Albumin 3.4 L (3.5-5.0) g/dL Urine Appearance Cloudy H (Clear) Urine Protein Trace H (Negative) Urine Ketones Trace H (Negative) Urine Blood Trace H (Negative) Ur Leukocyte Esterase Large H (Negative) Urine WBC >182 H (0-5) /hpf Urine WBC Clumps Few H (None) /hpf Uric Acid Crystals Many H (None) /hpf Urine Bacteria Rare H (None) /hpf Hyaline Casts 16 H (0-2) /lpf Urine Mucus Occasional H (None) /hpf Microbiology - Last 24 Hours (Table) 03/25/20 05:05 Urine Culture - Preliminary Urine,Voided Diabetes panel 03/25/20 Range/Units 04:55 Sodium 132 L (137-145) mmol/L Potassium 4.0 (3.5-5.1) mmol/L Chloride 99 (98-107) mmol/L Carbon Dioxide 24 (22-30) mmol/L BUN 8 (7-17) mg/dL Creatinine 0.50 L (0.52-1.04) mg/dL Glucose 121 H (74-99) mg/dL Calcium 9.6 (8.4-10.2) mg/dL AST 55 H (14-36) U/L ALT 22 (4-34) U/L Alkaline Phosphatase 174 H (38-126) U/L Total Protein 7.6 (6.3-8.2) g/dL Albumin 3.4 L (3.5-5.0) g/dL Calcium panel 03/25/20 Range/Units 04:55 Calcium 9.6 (8.4-10.2) mg/dL Albumin 3.4 L (3.5-5.0) g/dL Pituitary panel 03/25/20 Range/Units 04:55 Sodium 132 L (137-145) mmol/L Potassium 4.0 (3.5-5.1) mmol/L Chloride 99 (98-107) mmol/L Carbon Dioxide 24 (22-30) mmol/L BUN 8 (7-17) mg/dL Creatinine 0.50 L (0.52-1.04) mg/dL Glucose 121 H (74-99) mg/dL Calcium 9.6 (8.4-10.2) mg/dL Adrenal panel 03/25/20 Range/Units 04:55 Sodium 132 L (137-145) mmol/L Potassium 4.0 (3.5-5.1) mmol/L Chloride 99 (98-107) mmol/L Carbon Dioxide 24 (22-30) mmol/L BUN 8 (7-17) mg/dL Creatinine 0.50 L (0.52-1.04) mg/dL Glucose 121 H (74-99) mg/dL Calcium 9.6 (8.4-10.2) mg/dL Total Bilirubin 2.1 H (0.2-1.3) mg/dL AST 55 H (14-36) U/L ALT 22 (4-34) U/L Alkaline Phosphatase 174 H (38-126) U/L Total Protein 7.6 (6.3-8.2) g/dL Albumin 3.4 L (3.5-5.0) g/dL
[2020-03-25] MEDS: HYDROmorphone 0.5 MG/0.5 ML SYRINGE IVP PRN ×2 (14:25→23:44)
[2020-03-25] MEDS ORDERED: TEMAZEPAM 15 MG CAP PO PRN (16:56)
[2020-03-25] MEDS ORDERED: LORazepam 0.5 MG TAB PO PRN (16:56)
--- NOTE | 2020-03-25 17:16 | XR ---
EXAMINATION TYPE: XR chest 1V portable DATE OF EXAM: 03/25/2020 COMPARISON: NONE HISTORY: Short of breath TECHNIQUE: Single view FINDINGS: Heart and mediastinum are normal. Lungs are clear of infiltrate. There are no hilar masses. There is very is mild blunting left costophrenic angle. Bony thorax appears intact. IMPRESSION: Minimal pleural reaction or fluid at the left lung base. Normal heart.
--- NOTE | 2020-03-25 17:34 | HP ---
HISTORY AND PHYSICAL DATE OF SERVICE: 03/25/2020 CHIEF COMPLAINTS: Abdominal pain and vomiting. HISTORY OF PRESENT ILLNESS: This 75-year-old woman with a past medical history of multiple medical problems, including history of liver disease and alcoholic liver disease, anxiety, panic disorder, being followed by Dr. Lentz in the outpatient setting, was not feeling well for the past several days. The patient had abdominal pain as well as vomiting. The patient was taking alcohol in large quantities, but quit about 21 days ago, according to her. The patient came to [facility] and was admitted for further evaluation and treatment. The patient also had features of UTI. A CT scan of the abdomen and pelvis was done at the time of admission in the ER which showed diffusely dilated small bowel loops with fluid levels and epigastric ventral hernia. Bilateral inguinal hernias were also noted. No evidence of incarceration was noted. Surgery, Dr. Morales, saw the patient and is planning for hernia repair at this time. There is no history of any fever, rigors or chills. No history of headache, loss of consciousness, seizures. PAST MEDICAL HISTORY: History of liver disease, history of anxiety, panic disorder, history of EtOH. MEDICATIONS: 1. Lasix 20 mg daily. 2. K-Dur 10 mEq p.o. daily. 3. Xanax 0.25 daily p.r.n. ALLERGIES: BENADRYL, TYLENOL. FAMILY HISTORY: History of stomach cancer in the family. SOCIAL HISTORY: No history of smoking. History of alcohol intake, as mentioned earlier. REVIEW OF SYSTEMS: ENT: No diminished hearing. No diminished vision. CARDIOVASCULAR SYSTEM: No angina, palpitations. RESPIRATORY SYSTEM: No cough, hemoptysis. GI: As mentioned earlier. : No dysuria or retention. NERVOUS SYSTEM: No numbness, weakness. ALLERGY/IMMUNOLOGY: No asthma, hayfever. MUSCULOSKELETAL: As mentioned earlier. HEMATOLOGY/ONCOLOGY: No history of anemia. ENDOCRINE: No history of diabetes, hypothyroidism. CONSTITUTIONAL: As mentioned earlier. DERMATOLOGY: Negative. RHEUMATOLOGY: Negative. PSYCHIATRY: As mentioned earlier. PHYSICAL EXAMINATION: Patient is alert and oriented x3. Pulse 67, blood pressure 101/60, respiration 18, temperature 98.4, pulse ox 94% on room air. HEENT: Conjunctivae normal. Oral mucosa moist. NECK: No jugular venous distention. No carotid bruit. No lymph node enlargement. CARDIOVASCULAR SYSTEM: S1, S2 muffled. No S3. No S4. RESPIRATORY SYSTEM: Breath sounds diminished at the bases. No rhonchi. No crackles. ABDOMEN: Soft. Ventral hernia present. Otherwise, no guarding. No rigidity. Mild discomfort present. No ascites. No mass palpable. LEGS: No edema. No swelling. NERVOUS SYSTEM: Higher functions as mentioned earlier. Moves all 4 limbs. No focal motor or sensory deficit. LYMPHATICS: No lymph node palpable in neck, axillae or groin. SKIN: No ulcer, rash, bleeding. JOINTS: No active deforming arthropathy. LABS: WBC 3.2 and platelets are 92. Sodium 132. Total bilirubin is 2.1, AST is 55, ALT is 22. UA noted. ASSESSMENT: 1. Acute abdominal pain with ileus. 2. Ventral hernia as well as bilateral inguinal hernias. 3. Leukopenia. 4. Thrombocytopenia. 5. Hyponatremia. 6. Elevated bilirubin with possible alcoholic hepatitis, improving. 7. Acute urinary tract infection, present on admission. 8. History of chronic liver disease secondary to alcohol. 9. History of cholecystectomy. 10.History of degenerative joint disease. 11.History of anxiety, panic disorder. 12.FULL CODE. RECOMMENDATIONS AND DISCUSSION: In this 75-year-old woman who presented with multiple complex medical issues, we will monitor the patient closely, continue the current medications, continue symptomatic treatment. I will hold the Lasix at this time. Otherwise, we will continue to monitor. Closely follow with Surgery. Chest x-ray will be ordered to rule out the possibility of active CHF. Otherwise, closely follow with Dr. Morales with possible surgery. Guarded prognosis. The patient is medically stable. Further recommendations to follow. Patient is cleared for surgery. A copy of this dictation is being forwarded to Dr. Lentz, who is the primary physician. MMODL / IJN: [id number] /
[2020-03-25] MEDS: PANTOPRAZOLE 40 MG/10 ML VIAL IVP SCH (17:48)
[2020-03-25] MEDS: HEPARIN SODIUM,PORCINE 5,000 UNIT/ML 1 ML VIAL SQ SCH (20:42)
[2020-03-26] MEDS: SODIUM CHLORIDE 0.9% 1,000 ML IV SCH ×2 (04:27→12:06)
[2020-03-26] MEDS ORDERED: LACTATED RINGERS 1,000 ML IV ONE (07:29)
[2020-03-26] MEDS ORDERED: DEXAMETHASONE SOD PHOSPHATE 10 MG/ML 1 ML VIAL IV ONE (07:56)
[2020-03-26] MEDS ORDERED: ONDANSETRON 4 MG/2 ML VIAL IVP ONE (07:57)
[2020-03-26] MEDS ORDERED: HEPARIN SODIUM,PORCINE 5,000 UNIT/ML 1 ML VIAL SQ ONE (08:08)
--- NOTE | 2020-03-26 08:15 | P.PN ---
Progress Note - Text Progress Note Date: 03/26/20 Patient undergo laparoscopic robotic-assisted repair of bilateral internal hernias today.
[2020-03-26] MEDS ORDERED: ROCURONIUM 10 MG/ML (5 ML VIAL) IV ONE (08:19)
[2020-03-26] MEDS ORDERED: SUCCINYLCHOLINE CHLORIDE 100 MG/5 ML SYR IV ONE (08:19)
[2020-03-26] MEDS ORDERED: MIDAZOLAM 2 MG/2 ML VIAL ONE (08:19)
[2020-03-26] MEDS ORDERED: PROPOFOL 10 MG/ML 20 ML VIAL IV ONE (08:19)
[2020-03-26] MEDS ORDERED: fentaNYL (PF) 50 MCG/ML 2 ML AMP ONE (08:19)
[2020-03-26] MEDS ORDERED: LIDOCAINE 1% INJ 10MG/ML (20 ML MDV) ONE (08:19)
[2020-03-26] MEDS ORDERED: SODIUM CHLORIDE 0.9% 100 ML with ceFAZolin 2,000 MG IV ONE ×2 (08:45)
[2020-03-26] MEDS ORDERED: BUPIVACAINE (PF) 0.5% 30 ML VIAL SQ ONE (08:46)
[2020-03-26] MEDS: HYDROmorphone 0.5 MG/0.5 ML SYRINGE IVP PRN (09:24)
--- NOTE | 2020-03-26 09:38 | P.OP ---
Date of Procedure: 03/26/20 Preoperative Diagnosis: Bilateral inguinal hernia Postoperative Diagnosis: Bilateral inguinal hernia Procedure(s) Performed: Laparoscopic robotic-assisted repair Bilateral hernia Anesthesia: ANANDA Surgeon: Reji Morales Estimated Blood Loss (ml): 5 Pathology: none sent Condition: stable Description of Procedure: MThe patient's placed on the operating table in the supine position. The patient received general anesthesia. The patient's abdomen was prepped and draped in usual sterile fashion. The skin was anesthetized 1% local Xylocaine at the incision sites. Using an 11 blade a skin incision was made at the umbilicus. The fascia was grasped with a Nel and then the peritoneal cavity was entered with the Veress needle. Position of the Veress needle was confirmed with a positive drop test. After adequate insufflation a 5 mm trocar was placed into the peritoneal cavity. The Laparoscope was placed the peritoneal cavity. And a robotic 8 mm trocar was placed in the right lateral position and then another 8 mm robotic trochars placed in the left lateral position. The original 5 mm trocar was exchanged for a 12 mm trocar. The patient was placed in reverse Trendelenburg and then the patient was docked to the robot. Next the peritoneum over top of the right inguinal hernia was incised and then using blunt and sharp dissection and electrocautery the hernia sac was dissected free from the floor of the inguinal canal. The hernia sac was completely reduced into the peritoneal cavity. And then using the Pro swimming coach mesh the hernia was repaired. The peritoneum was then sutured with 20V lock suture. Next the peritoneum over top of the left inguinal hernia was incised and then using blunt and sharp dissection and electrocautery the hernia sac was dissected free from the floor of the inguinal canal. The hernia sac was completely reduced into the peritoneal cavity. And then using the Pro swimming coach mesh the hernia was repaired. The peritoneum was then sutured with 20V lock suture. The patient was then undocked the robot. The needle was withdrawn from the pe ritoneal cavity. The umbilical trocar site was closed with 0 Ethibond suture. The skin was closed interrupted 3-0 Monocryl suture. Dermabond dressing was applied. Patient was sent to recovery in stable condition.
[2020-03-26] MEDS: HYDROmorphone 1 MG/ML 1 ML SYRINGE IVP ONE ×2 (09:50→10:00)
[2020-03-26] MEDS ORDERED: fentaNYL (PF) 50 MCG/ML 2 ML AMP IVP ONE (10:06)
[2020-03-26 10:33] VITALS: RESP 16
[2020-03-26] MEDS: HEPARIN SODIUM,PORCINE 5,000 UNIT/ML 1 ML VIAL SQ SCH (11:57)
[2020-03-26] MEDS: PANTOPRAZOLE 40 MG/10 ML VIAL IVP SCH (11:57)
[2020-03-26 12:58] LABS: ALT 20 U/L (4-34); AST 48 U/L (14-36); African American GFR (CKD) >90 (>60 ml/min/1.73 sqM); Albumin 3.1 g/dL (3.5-5.0); Alkaline Phosphatase 98 U/L (38-126); Anion Gap 9 mmol/L; Blood Urea Nitrogen 7 mg/dL (7-17); Calcium 8.5 mg/dL (8.4-10.2); Carbon Dioxide 23 mmol/L (22-30); Chloride 103 mmol/L (98-107); Glucose 113 mg/dL (74-99); Non-African American GFR(CKD) >90 (>60 ml/min/1.73 sqM); Potassium 4.4 mmol/L (3.5-5.1); Sodium 135 mmol/L (137-145); Total Bilirubin 1.4 mg/dL (0.2-1.3); Total Protein 7.3 g/dL (6.3-8.2)
[2020-03-26 13:08] VITALS: TEMP 98.1
[2020-03-26 13:11] LABS: Anisocytosis Slight; Basophils % (A) 0 %; Eosinophils % (A) 1 %; HCT 38.2 % (34.0-46.0); HGB 12.3 gm/dL (11.4-16.0); Hypochromasia Moderate; Lymphocytes # (A) 0.4 k/uL (1.0-4.8); Lymphocytes % (A) 10 %; MCH 32.9 pg (25.0-35.0); MCHC 32.2 g/dL (31.0-37.0); MCV 102.2 fL (80.0-100.0); Macrocytosis Slight; Mean Platelet Volume 8.6; Monocytes # (A) 0.3 k/uL (0-1.0); Monocytes % (A) 7 %; Neutrophils # (A) 3.2 k/uL (1.3-7.7); Neutrophils % (A) 81 %; Platelet Count 120 k/uL (150-450); RBC 3.74 m/uL (3.80-5.40)
[2020-03-26 13:46] VITALS: BP 140/62; PULSE 61
--- NOTE | 2020-03-26 17:28 | PN ---
PROGRESS NOTE DATE OF SERVICE: 03/26/2020 This 75-year-old woman was admitted with acute abdominal pain as well as ileus, underwent laparoscopic robotic assisted repair of bilateral inguinal hernias. The patient tolerated the procedure well. No chest pain. No palpitations. No fever. PHYSICAL EXAMINATION: Alert and oriented x3. Pulse 61, blood pressure 140/60, respirations 16, temperature normal, pulse ox 98% on 3 L. HEENT: Conjunctivae normal. NECK: No jugular venous distension. CARDIOVASCULAR SYSTEM: S1, S2, muffled. RESPIRATION: Breath sound diminished at the bases, no rhonchi, no crackles. ABDOMEN: Soft, status post surgery. LEGS: No edema. No swelling. LABS: WBC 4, hemoglobin 12.3, sodium 135 and total bilirubin is 1.4. ASSESSMENT: 1. Acute abdominal pain with ileus. 2. Bilateral inguinal hernia and laparoscopic robotic-assisted repair. 3. Ventral hernia. 4. Leukopenia. 5. Thrombocytopenia. 6. Hyponatremia. 7. Elevated bilirubin with possible alcoholic hepatitis, improving. 8. Acute urinary tract infection present on admission. 9. History of chronic liver disease secondary to alcohol. 10.History of cholecystectomy. 11.History of degenerative joint disease. 12.Anxiety, panic disorder. 13.FULL CODE. RECOMMENDATION: Recommend to continue current management. Continue with the antibiotics. Closely follow with Dr. Morales. Guarded prognosis because of multiple complex medical conditions. Further recommendations to follow. MMODL / BALTAZARN: [id number] /
--- NOTE | 2020-03-31 15:46 | DS ---
DISCHARGE SUMMARY FINAL DIAGNOSES: 1. Acute abdominal pain with ileus, status post laparoscopic robotic-assisted inguinal hernia repair. 2. Ventral hernia. 3. Leukopenia. 4. Thrombocytopenia. 5. Hyponatremia. 6. Elevated bilirubin, possibly secondary to alcoholic hepatitis, improving. 7. Acute urinary tract infection, present on admission. 8. History of chronic liver disease secondary to alcohol. 9. History of cholecystectomy. 10.History of degenerative joint disease. 11.Anxiety, panic disorder. 12.FULL CODE. DISCHARGE DISPOSITION: The patient will be discharged in stable condition with guarded prognosis. HISTORY OF PRESENT ILLNESS: This 75-year-old woman with a past medical history of multiple medical problems was admitted with abdominal pain, ileus and inguinal hernia. The patient underwent laparoscopic robotic-assisted repair by Dr. Morales. Please refer Dr. Morales's notes for further information. Patient was treated symptomatically. Patient improved significantly. On exam, vitals are stable. CARDIOVASCULAR SYSTEM: S1, S2 muffled. ABDOMEN: Soft. NERVOUS SYSTEM: No focal deficit. DISCHARGE ADVICE AND MEDICATIONS: 1. Diet is cardiac. 2. Activity limited until followup. 3. Follow up with Dr. Lentz as advised. 4. Follow up with Dr. Morales as recommended. 5. Colace 100 mg p.o. b.i.d. p.r.n. 6. K-Dur 10 mEq p.o. daily. 7. Lasix 20 mg daily. 8. Xanax 0.25 daily p.r.n. 9. Bonduel 5 mg q.6 p.r.n. Once again, the patient will be discharged in stable condition with guarded prognosis. MMODL / IJN: [id number] /
== END 2020-03-26 15:46 | disposition home or self-care (01) ==
LOC: EC 04:02 → INTOOBSV 06:41 → 1SOBS 06:41 → 5NMEDONC 08:12 → 6PED 03-26 10:48 → UNDODISIN 03-26 15:46
PROVIDERS: ADMIT Hospitalist; ATTEND Hospitalist
DX: K40.00 Bilateral inguinal hernia, with obstruction, without gangrene, not specified as recurrent (principal); K43.9 Ventral hernia without obstruction or gangrene; D72.819 Decreased white blood cell count, unspecified; D69.6 Thrombocytopenia, unspecified; E87.1 Hypo-osmolality and hyponatremia; N39.0 Urinary tract infection, site not specified; K70.9 Alcoholic liver disease, unspecified; F10.21 Alcohol dependence, in remission; M19.90 Unspecified osteoarthritis, unspecified site; F41.9 Anxiety disorder, unspecified; F41.0 Panic disorder [episodic paroxysmal anxiety]; K08.89 Other specified disorders of teeth and supporting structures; M79.89 Other specified soft tissue disorders; Z03.818 Encounter for observation for suspected exposure to other biological agents ruled out; Z79.899 Other long term (current) drug therapy; Z88.8 Allergy status to other drugs, medicaments and biological substances; Z88.6 Allergy status to analgesic agent; Z90.49 Acquired absence of other specified parts of digestive tract; Z98.890 Other specified postprocedural states; Z80.0 Family history of malignant neoplasm of digestive organs
CPT/HCPCS: 96376 ×2; 96372; 96375 ×2; 96374; 99285; 36415; 80053 ×2; 82150; 83690; 85025 ×2; 81001; 87086; 87077; 87186; 71045; 74176; 49650; G0378 ×4; C1781; U0003; J2250; J2270; J1644 ×2; J1100; J2405 ×2; J0690; J2001; J0696 ×2; J3010; J1170 ×3; J0330; J2704; C9113 ×2; 96365

== ENCOUNTER 2020-04-16 11:40 | Inpatient (IN) | payer MEDICARE ==
--- NOTE | 2020-04-16 15:16 | XR ---
EXAMINATION TYPE: XR chest 1V portable DATE OF EXAM: 04/16/2020 HISTORY: Shortness of breath. COMPARISON: March 25, 2020 TECHNIQUE: Single view of the chest is submitted. FINDINGS: Demonstrated are scattered senescent parenchymal change. There is no evidence for focal infiltrate. The heart is stable. Hilar and mediastinal structures are within normal limits. Degenerative changes are seen of the dorsal spine. IMPRESSION: 1. Chronic changes without evidence for acute pulmonary disease.
[2020-04-16 15:40] LABS: Basophils % (A) 0 %; Eosinophils # (A) 0.1 k/uL (0-0.7); Eosinophils % (A) 2 %; HCT 39.8 % (34.0-46.0); HGB 14.3 gm/dL (11.4-16.0); Hyperchromasia Slight; Lymphocytes # (A) 0.7 k/uL (1.0-4.8); Lymphocytes % (A) 15 %; MCH 32.1 pg (25.0-35.0); MCHC 35.9 g/dL (31.0-37.0); Mean Platelet Volume 8.4; Monocytes # (A) 0.4 k/uL (0-1.0); Monocytes % (A) 8 %; Neutrophils # (A) 3.5 k/uL (1.3-7.7); Neutrophils % (A) 73 %; Platelet Count 103 k/uL (150-450); RBC 4.45 m/uL (3.80-5.40); RDW 13.9 % (11.5-15.5); WBC 4.8 k/uL (3.8-10.6)
[2020-04-16 15:42] LABS: MCV 89.3 fL (80.0-100.0)
[2020-04-16 15:51] LABS: ALT 16 U/L (4-34); AST 46 U/L (14-36); African American GFR (CKD) >90 (>60 ml/min/1.73 sqM); Alkaline Phosphatase 143 U/L (38-126); Anion Gap 12 mmol/L; Blood Urea Nitrogen 10 mg/dL (7-17); Calcium 9.3 mg/dL (8.4-10.2); Carbon Dioxide 32 mmol/L (22-30); Glucose 139 mg/dL (74-99); Non-African American GFR(CKD) >90 (>60 ml/min/1.73 sqM); Total Bilirubin 2.7 mg/dL (0.2-1.3); Total Protein 8.3 g/dL (6.3-8.2)
[2020-04-16 15:52] LABS: Lactic Acid, Venous 1.3 mmol/L (0.7-2.0)
[2020-04-16 15:55] LABS: Chloride 71 mmol/L (98-107); Potassium 2.2 mmol/L (3.5-5.1); Sodium 115 mmol/L (137-145)
[2020-04-16] MEDS ORDERED: Potassium Replacement Protocol 1 EACH MISC MISCELLANE PRN (16:11)
[2020-04-16] MEDS: SODIUM CHLORIDE 0.9% 1,000 ML IV SCH (16:53)
[2020-04-16] MEDS: POTASSIUM CHLORIDE ER 20 MEQ TAB.ER PO SCH ×3 (16:53→21:31)
[2020-04-16] MEDS: traMADol 50 MG TAB PO PRN (17:01)
[2020-04-16 17:18] LABS: Amorphous Sediment,Urine Rare /hpf; Appearance,Urine Clear (Clear); Bilirubin,Urine Negative (Negative); Blood,Urine Trace (Negative); Color,Urine Yellow; Glucose,Urine (UA) Negative (Negative); Ketones,Urine Negative (Negative); Leukocyte Esterase,Urine Small (Negative); Nitrite,Urine Negative (Negative); Protein,Urine Negative (Negative); RBC,Urine 1 /hpf (0-5); Specific Gravity,Urine 1.005 (1.001-1.035); Squamous Epithelial Cell,Urine 1 /hpf (0-4); Urobilinogen,Urine <2.0 mg/dL (<2.0); WBC,Urine 10 /hpf (0-5)
[2020-04-16] MEDS ORDERED: SODIUM CHLORIDE 3%(HYPERTONIC) 500 ML IV SCH (21:00)
[2020-04-16 22:33] LABS: Glucose,Whole Blood 165 mg/dL (75-99)
[2020-04-17 01:06] LABS: African American GFR (CKD) >90 (>60 ml/min/1.73 sqM); Anion Gap 7 mmol/L; Blood Urea Nitrogen 8 mg/dL (7-17); Calcium 8.5 mg/dL (8.4-10.2); Carbon Dioxide 31 mmol/L (22-30); Chloride 80 mmol/L (98-107); Glucose 132 mg/dL (74-99); Non-African American GFR(CKD) >90 (>60 ml/min/1.73 sqM)
[2020-04-17 01:18] LABS: Potassium 2.6 mmol/L (3.5-5.1); Sodium 118 mmol/L (137-145)
[2020-04-17] MEDS ORDERED: Potassium Replacement Protocol 1 EACH MISC MISCELLANE PRN ×3 (01:28→21:52)
[2020-04-17] MEDS: POTASSIUM CHLORIDE ER 20 MEQ TAB.ER PO SCH ×8 (01:33→23:53)
[2020-04-17 04:14] LABS: Hemoglobin A1C 4.8 % (4.0-6.0)
[2020-04-17 05:10] LABS: Basophils % (A) 0 %; Eosinophils # (A) 0.1 k/uL (0-0.7); Eosinophils % (A) 3 %; HGB 12.5 gm/dL (11.4-16.0); Lymphocytes # (A) 0.7 k/uL (1.0-4.8); Lymphocytes % (A) 19 %; MCHC 34.6 g/dL (31.0-37.0); MCV 89.5 fL (80.0-100.0); Mean Platelet Volume 8.1; Monocytes # (A) 0.5 k/uL (0-1.0); Monocytes % (A) 14 %; Neutrophils # (A) 2.2 k/uL (1.3-7.7); Neutrophils % (A) 61 %; RBC 4.02 m/uL (3.80-5.40); RDW 13.8 % (11.5-15.5); WBC 3.5 k/uL (3.8-10.6)
[2020-04-17 05:19] LABS: ALT 14 U/L (4-34); AST 39 U/L (14-36); African American GFR (CKD) >90 (>60 ml/min/1.73 sqM); Albumin 3.2 g/dL (3.5-5.0); Alkaline Phosphatase 104 U/L (38-126); Anion Gap 8 mmol/L; Blood Urea Nitrogen 7 mg/dL (7-17); Calcium 8.5 mg/dL (8.4-10.2); Carbon Dioxide 30 mmol/L (22-30); Chloride 83 mmol/L (98-107); Glucose 124 mg/dL (74-99); Non-African American GFR(CKD) >90 (>60 ml/min/1.73 sqM); Potassium 2.8 mmol/L (3.5-5.1); Sodium 121 mmol/L (137-145); Total Bilirubin 2.3 mg/dL (0.2-1.3)
[2020-04-17] MEDS: SODIUM CHLORIDE 0.9% 1,000 ML IV SCH ×2 (05:20→20:24)
[2020-04-17 05:44] LABS: Platelet Count 64 k/uL (150-450)
[2020-04-17] MEDS ORDERED: POTASSIUM CHLORIDE 10 MEQ in WATER FOR INJECTION 1 100ML.BAG IVPB STA (07:15)
--- NOTE | 2020-04-17 08:44 | HP ---
HISTORY AND PHYSICAL DATE OF ADMISSION: 04/16/2020 HISTORY OF PRESENT ILLNESS: 75-year-old white female who is admitted to the hospital for altered mental status, extreme weakness, fatigue, near syncope. She was admitted and found to have a sodium of 118 at which time she was transferred to the ICU and given 3% normal saline per renal physician. She also had a potassium 2.6. She was placed on protocol. She had recently had gastric bowel obstruction for which surgery was done and corrected and she lost 20 pounds with diuresis since that time due to extreme fluid build up from diastolic CHF, 20 pounds in maybe 10 days or so. Her mental status is off with confusion and increased weakness and fatigue and shortness of breath. She was placed in ICU. MEDICATIONS: Takes tramadol p.r.n. for pain and Lasix 20 mg a day at home, potassium 10 mEq a day. REVIEW OF SYSTEMS: Fourteen-point review of systems negative except for mentioned in HPI. PHYSICAL EXAMINATION: VITAL SIGNS: Temp 97.8, pulse is 50s to 60s, respiratory 12-16, blood pressure is 120s to 130s over 60s, O2 96 to 98 on room air. CARDIOVASCULAR: S1, S2. LUNGS: Rales at the bases. HEMATOLOGY 2 to 3+ edema. GI soft. Incision clean, dry, intact. NERVOUS SYSTEM: She had extreme weakness and near syncope. She is unable to ambulate by herself. Muscle strength 3 to 4/5 x4 extremities. ASSESSMENT: 1. Generalized weakness. 2. Severe hyponatremia. 3. Hypokalemia. 4. Status post bowel obstruction. 5. She has history of cirrhosis. 6. History of chronic obstructive pulmonary disease. Please see further orders. Replace potassium. Sodium slowly. MMODL / IJN: [id number] /
--- NOTE | 2020-04-17 10:47 | P.CNNES ---
History of Present Illness Consult date: 04/17/20 Reason for Consult: ataxia History of Present Illness: The patient is a 75-year-old female who is seen in neurologic consultation on April 17, 2020 via teleneurology. Patient is a poor historian. She tells me she was not feeling well. She does report feeling lightheaded and dizzy. She reports feeling off balance. The symptoms had been present for the past 4 days. Patient reports a poor appetite as well. She denies headache, visual changes, difficulty with speech and swallowing, and paresthesias. She reports generalized weakness. She denies shortness of breath, chest pain and abdominal pain The patient reports drinking approximately 5-6 bottles of water per day. Denies a history of similar symptoms. Review of Systems As noted in the history of chief complaint Past Medical History Past Medical History: Hyperlipidemia, Liver Disease Additional Past Medical History / Comment(s): Pt recently admitted to [facility] on 03/25/20 with acute abdominal pain with ileus with bilateral inguinal hernia repair/ventral hernia/leukopenia/thrombocytopenia/hyponatremia/elevated bilirubin/chronic liver disease d/t ETOH, acute UTI. Other hx: Post recent bilateral inguinal hernia repair pt developed increased abdominal distention and lasix was increased for this reason, cataract in one eye (laterallity unknown), varicosity R leg, low platelets. History of Any Multi-Drug Resistant Organisms: None Reported Past Surgical History: Cholecystectomy, Orthopedic Surgery Additional Past Surgical History / Comment(s): Bilaeral inguinal hernia repairs, L knee arthroscopic surgery, nasal cauterization for epistaxis, colonoscopy. Past Anesthesia/Blood Transfusion Reactions: No Reported Reaction Smoking Status: Never smoker - Past Family History Mother Family Medical History: Asthma Father Family Medical History: Cancer Additional Family Medical History / Comment(s): stomach cancer Medications and Allergies Home Medications Medication Instructions Recorded Confirmed Type ALPRAZolam [Xanax] 0.25 - 0.5 mg PO DAILY PRN 08/05/19 04/16/20 History Furosemide [Lasix] 20 mg PO DAILY 03/25/20 04/16/20 History Potassium Chloride [Klor-Con 20] 20 meq PO DAILY 04/16/20 04/16/20 History traMADol HCL 50 mg PO DAILY PRN 04/16/20 04/16/20 History Allergies Allergy/AdvReac Type Severity Reaction Status Date / Time diphenhydramine HCl Allergy OVER Verified 04/16/20 15:03 [From Benadryl] SEDATED acetaminophen [From Tylenol] AdvReac Abn liver Verified 04/16/20 15:03 function Physical Examination - Vital Signs Vital Signs: Vital Signs Temp Pulse Pulse Resp BP BP Pulse Ox 04/17/20 10:00 56 L 11 L 139/64 96 04/17/20 09:00 84 29 H 122/55 96 04/17/20 08:00 97.1 F L 58 L 13 136/57 96 04/17/20 07:00 59 L 12 133/64 96 04/17/20 06:00 61 13 122/50 98 04/17/20 05:00 89 12 120/49 96 04/17/20 04:00 97.8 F 59 L 10 L 134/60 96 04/17/20 03:00 63 16 122/55 96 04/17/20 02:00 63 12 111/51 95 04/17/20 01:00 58 L 12 112/49 96 04/17/20 00:00 97.7 F 59 L 72 12 118/55 95 04/16/20 23:00 64 12 127/64 95 04/16/20 19:46 98 F 72 16 127/76 98 04/16/20 15:03 98.2 F 77 14 113/70 99 Intake and Output 04/16/20 04/17/20 04/17/20 22:59 06:59 14:59 Intake Total 100 720 650 Output Total 0 501 Balance 100 720 149 Intake: IV 225 Sodium Chloride 0.9% 1, 225 000 ml @ 75 mls/hr IV . [id number] [facility] Rx#:[id number] Intake, IV Titration 720 175 Amount Potassium Chloride 10 meq 100 In Water For Injection 1 100ml.bag @ 100 mls/hr IVPB ONCE [facility] Rx#: [id number] Sodium Chloride 0.9% 1, 600 75 000 ml @ 75 mls/hr IV . [id number] [facility] Rx#:[id number] Sodium Chloride 3%( 120 Hypertonic) 500 ml @ 20 mls/hr IV .Q24H [facility] Rx#: [id number] Oral 100 250 Output: Urine 0 500 Stool 1 Other: Voiding Method Toilet Toilet # Voids 1 1 # Bowel Movements 1 1 Weight 62.7 kg 66.1 kg Gen.: The patient is well-nourished, well-developed and in no acute distress. HEENT: Head is atraumatic, normocephalic. Fundus not visualized. There is no scleral icterus. Mucous membranes are moist. Heart: Regular rate and rhythm Extremities: Without edema Neurological examination Mental status: The patient is awake, alert and oriented to her name, date of and age. She reports the year to be "2018". She reports the month is "April". She is oriented to her current location. She is unable to recall the name of the president of [facility]. The patient tells me she has no medical problems. The only medication she is able to recall taking, is potassium. Cranial nerves: Pupils are equal, round and reactive to light. Visual edwards are full to confrontation. Extraocular muscles are intact. There is no nystagmus. Facial sensation is intact. There is no facial asymmetry. Hearing is grossly intact. Uvula and palate are midline. Shoulder shrug is symmetric. Tongue protrudes midline. Motor: Upper extremity strength is 5/5. Lower extremity strength 5/5. Coordination: Finger to nose and rapid alternating movements are intact. Deep tendon reflexes: 2+/4+ throughout Sensation: Grossly intact to light touch. There is no extinction with double simultaneous stimulation. Gait: Not assessed Results - Laboratory Findings CBC and BMP: 04/17/20 04:46 04/17/20 08:37 Abnormal Lab Findings: Abnormal Labs 04/16/20 04/16/20 04/16/20 15:14 15:14 17:00 WBC Plt Count 103 L Lymphocytes # 0.7 L Sodium 115 L* Potassium 2.2 L* Chloride 71 L* Carbon Dioxide 32 H Creatinine 0.51 L Glucose 139 H POC Glucose (mg/dL) Total Bilirubin 2.7 H AST 46 H Alkaline Phosphatase 143 H Total Protein 8.3 H Albumin Urine Blood Trace H Ur Leukocyte Esterase Small H Urine WBC 10 H Amorphous Sediment Rare H 04/16/20 04/17/20 04/17/20 22:32 00:44 04:46 WBC 3.5 L Plt Count 64 L Lymphocytes # 0.7 L Sodium 118 L* Potassium 2.6 L* Chloride 80 L Carbon Dioxide 31 H Creatinine 0.42 L Glucose 132 H POC Glucose (mg/dL) 165 H Total Bilirubin AST Alkaline Phosphatase Total Protein Albumin Urine Blood Ur Leukocyte Esterase Urine WBC Amorphous Sediment 04/17/20 04/17/20 04:46 08:37 WBC Plt Count Lymphocytes # Sodium 121 L 123 L Potassium 2.8 L Chloride 83 L Carbon Dioxide Creatinine 0.44 L Glucose 124 H POC Glucose (mg/dL) Total Bilirubin 2.3 H AST 39 H Alkaline Phosphatase Total Protein Albumin 3.2 L Urine Blood Ur Leukocyte Esterase Urine WBC Amorphous Sediment Assessment and Plan Assessment: 1. Reported lightheadedness and ataxia 4 days, with hyponatremia and hypokalemia as the likely etiology 2. There are no focal or lateralizing deficits on the neurological examination 3. Thrombocytopenia Plan: 1. Your treatment of electrolyte abnormalities 2. ? Need for hematology evaluation regarding thrombocytopenia 3. No further neurological intervention is necessary at this time. Thank you for allowing me to participate in the care of this patient
--- NOTE | 2020-04-17 11:42 | P.CNPUL ---
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 has been sober for last several week, patient presented into the hospital with generalized weakness fatigue, she has history of chronic hypokalemia has been on potassium replacement therapy, she has been feeling li ghtheaded and dizzy on arrival she was noted to have severe hypokalemia and hyponatremia potassium has been replaced along with 3% saline, which is being discontinued, renal services has been following this patient as well denies any chest pain shortness of breath cough or sputum production, patient has some component of pancytopenia as well with leukopenia and thrombocytopenia hemoglobin stable 12.5, total bilirubin is 2.3, random sodium level in the urine is less than 10 with urine osmole 246 Review of Systems All systems: negative Past Medical History Past Medical History: Hyperlipidemia, Liver Disease Additional Past Medical History / Comment(s): Pt recently admitted to [facility] on 03/25/20 with acute abdominal pain with ileus with bilateral inguinal hernia repair/ventral hernia/leukopenia/thrombocytopenia/hyponatremia/elevated bilirubin/chronic liver disease d/t ETOH, acute UTI. Other hx: Post recent bilateral inguinal hernia repair pt developed increased abdominal distention and lasix was increased for this reason, cataract in one eye (laterallity unknown), varicosity R leg, low platelets. History of Any Multi-Drug Resistant Organisms: None Reported Past Surgical History: Cholecystectomy, Orthopedic Surgery Additional Past Surgical History / Comment(s): Bilaeral inguinal hernia repairs, L knee arthroscopic surgery, nasal cauterization for epistaxis, colonoscopy. Past Anesthesia/Blood Transfusion Reactions: No Reported Reaction Smoking Status: Never smoker - Past Family History Mother Family Medical History: Asthma Father Family Medical History: Cancer Additional Family Medical History / Comment(s): stomach cancer Medications and Allergies Home Medications Medication Instructions Recorded Confirmed Type ALPRAZolam [Xanax] 0.25 - 0.5 mg PO DAILY PRN 08/05/19 04/16/20 History Furosemide [Lasix] 20 mg PO DAILY 03/25/20 04/16/20 History Potassium Chloride [Klor-Con 20] 20 meq PO DAILY 04/16/20 04/16/20 History traMADol HCL 50 mg PO DAILY PRN 04/16/20 04/16/20 History Allergies Allergy/AdvReac Type Severity Reaction Status Date / Time diphenhydramine HCl Allergy OVER Verified 04/16/20 15:03 [From Benadryl] SEDATED acetaminophen [From Tylenol] AdvReac Abn liver Verified 04/16/20 15:03 function Physical Exam Vitals: Vital Signs Temp Pulse Pulse Resp BP BP Pulse Ox 04/17/20 11:00 64 14 130/49 95 04/17/20 10:00 56 L 11 L 139/64 96 04/17/20 09:00 84 29 H 122/55 96 04/17/20 08:00 97.1 F L 58 L 13 136/57 96 04/17/20 07:00 59 L 12 133/64 96 04/17/20 06:00 61 13 122/50 98 04/17/20 05:00 89 12 120/49 96 04/17/20 04:00 97.8 F 59 L 10 L 134/60 96 04/17/20 03:00 63 16 122/55 96 04/17/20 02:00 63 12 111/51 95 04/17/20 01:00 58 L 12 112/49 96 04/17/20 00:00 97.7 F 59 L 72 12 118/55 95 04/16/20 23:00 64 12 127/64 95 04/16/20 19:46 98 F 72 16 127/76 98 04/16/20 15:03 98.2 F 77 14 113/70 99 Intake and Output 04/16/20 04/17/20 04/17/20 22:59 06:59 14:59 Intake Total 100 720 725 Output Total 0 502 Balance 100 720 223 Intake: IV 300 Sodium Chloride 0.9% 1, 300 000 ml @ 75 mls/hr IV . [id number] [facility] Rx#:[id number] Intake, IV Titration 720 175 Amount Potassium Chloride 10 meq 100 In Water For Injection 1 100ml.bag @ 100 mls/hr [facility]#: [id number] Sodium Chloride 0.9% 1, 600 75 000 ml @ 75 mls/hr IV . [id number] [facility] Rx#:[id number] Sodium Chloride 3%( 120 Hypertonic) 500 ml @ 20 mls/hr IV .Q24H [facility] Rx#: [id number] Oral 100 250 Output: Urine 0 500 Stool 2 Other: Voiding Method Toilet Toilet Toilet # Voids 1 1 # Bowel Movements 1 1 Weight 62.7 kg 66.1 kg - Constitutional General appearance: average body habitus, cooperative, disheveled - EENT Eyes: anicteric sclerae, EOMI Ears: bilateral: normal - Neck Neck: normal ROM Carotids: bilateral: upstroke normal Thyroid: negative: normal size - Respiratory Respiratory: bilateral: CTA - Cardiovascular Rhythm: regular Heart sounds: normal: S1, S2 - Gastrointestinal General gastrointestinal: decreased bowel sounds, soft - Integumentary Integumentary: normal turgor - Neurologic Neurologic: CNII-XII intact - Musculoskeletal Musculoskeletal: generalized weakness, strength equal bilaterally - Psychiatric Psychiatric: A&O x's 3, appropriate affect, intact judgment & insight Results - Laboratory Findings CBC and BMP: 04/17/20 04:46 04/17/20 08:37 PT/INR, D-dimer D-Dimer 0.50 mg/L FEU (<0.60) 04/16/20 15:14 Abnormal lab findings: Abnormal Labs 04/16/20 04/16/20 04/16/20 15:14 15:14 17:00 WBC Plt Count 103 L Lymphocytes # 0.7 L Sodium 115 L* Potassium 2.2 L* Chloride 71 L* Carbon Dioxide 32 H Creatinine 0.51 L Glucose 139 H POC Glucose (mg/dL) Total Bilirubin 2.7 H AST 46 H Alkaline Phosphatase 143 H Total Protein 8.3 H Albumin Urine Blood Trace H Ur Leukocyte Esterase Small H Urine WBC 10 H Amorphous Sediment Rare H 04/16/20 04/17/20 04/17/20 22:32 00:44 04:46 WBC 3.5 L Plt Count 64 L Lymphocytes # 0.7 L Sodium 118 L* Potassium 2.6 L* Chloride 80 L Carbon Dioxide 31 H Creatinine 0.42 L Glucose 132 H POC Glucose (mg/dL) 165 H Total Bilirubin AST Alkaline Phosphatase Total Protein Albumin Urine Blood Ur Leukocyte Esterase Urine WBC Amorphous Sediment 04/17/20 04/17/20 04:46 08:37 WBC Plt Count Lymphocytes # Sodium 121 L 123 L Potassium 2.8 L Chloride 83 L Carbon Dioxide Creatinine 0.44 L Glucose 124 H POC Glucose (mg/dL) Total Bilirubin 2.3 H AST 39 H Alkaline Phosphatase Total Protein Albumin 3.2 L Urine Blood Ur Leukocyte Esterase Urine WBC Amorphous Sediment - Diagnostic Findings Chest x-ray: report reviewed, image reviewed (Some chronic changes noted with no acute finding) Assessment and Plan Assessment: Severe degree of electrolyte imbalance due to liver disease as well as nutritional impairment Severe hyponatremia Hypokalemia Pancytopenia with leukopenia as well as thrombocytopenia Alcohol-related hepatitis Generalized weakness fatigue likely related to electrolyte imbalance Plan: Swallow correction of hyponatremia 12 meq per 24 hours Aggressive correction of hypokalemia Patient is now off of 3% saline, patient is being repleted with normal saline PT OT evaluation Increase activity as tolerated Peptic ulcer disease prophylaxis and DVT prophylaxis Can be moved out of the ICU if okay with renal service Further recommendations pending plan of care as per clinical response of the patient Time with Patient: Greater than 30
[2020-04-17] MEDS: traMADol 50 MG TAB PO PRN ×2 (12:01→20:30)
[2020-04-17] MEDS ORDERED: POTASSIUM CHLORIDE ER 20 MEQ TAB.ER PO STA (15:20)
[2020-04-17] MEDS ORDERED: MAGNESIUM SULFATE-D5W PMX 1 GM in DEXTROSE/WATER 1 100ML.BAG IVPB ONE (16:06)
--- NOTE | 2020-04-17 18:11 | CONS ---
CONSULTATION REASON FOR CONSULT: Hyponatremia. HISTORY OF PRESENT ILLNESS: Patient is a 75-year-old female who was admitted to the hospital with complaints of weakness, lightheadedness and dizziness. The patient denies any prior history of hyponatremia. According to the notes it appears that the patient did have fluid overload recently about 2 weeks ago and had been on diuretics. Her current home medications show Lasix of 20 mg p.o. daily. The patient was recently hospitalized and had surgery on 03/26/2020 for bilateral inguinal hernia repair. Her serum sodium at that time was 132-135 mEq/L and the patient was discharged the same day of the surgery. She denies any nausea, vomiting or diarrhea. Patient was started on 3% saline yesterday when her sodium was noted to be 115 and I was informed that patient had been slightly confused as well. She was transferred to the ICU and serum sodium did go up to 121 early this morning and the 3% saline was discontinued. Following discontinuation, her serum sodium continues to increase. It was at 123 and now at 127. The patient states she feels well. She denies any significant weakness. Mentation is currently normal. Blood pressure has been about 130 to 118 mmHg systolic. PAST MEDICAL HISTORY: Hyperlipidemia, recent bilateral inguinal hernia repair and ventral hernia repair, history of EtOH use, cataracts, history of thrombocytopenia related to chronic liver disease. PAST SURGICAL HISTORY: Cholecystectomy, recent bilateral inguinal hernia repair, colonoscopy, left knee arthroscopic surgery. SOCIAL HISTORY: Negative for smoking, drug abuse or alcohol abuse. MEDICATIONS: Medications at home prior to admission included potassium, tramadol, Lasix, Xanax. ALLERGIES: Include Benadryl and Tylenol. REVIEW OF SYSTEMS: As per HPI. Other systems negative. PHYSICAL EXAMINATION: Patient is currently comfortable, awake, alert, oriented x3, not in any acute distress. Blood pressure is 130/49, heart rate 64 per minute, she is afebrile. Examination of the heart S1, S2. Examination of the lungs, bilateral breath sounds are heard. Abdomen is soft, nontender. Examination of lower extremities shows no evidence of edema. [employer] exam grossly intact. Urine osmolality was 246. Random urine sodium was less than 10. Sodium 121, potassium 2.8, chloride 83, CO2 is 30, BUN 7, serum creatinine 0.44. ASSESSMENT: 1. Hypovolemic hyponatremia, currently improved with 3% saline. I will maintain the patient off if 3% saline as serum sodium continues to improve. She should increase her oral diet and maintain some degree of free water restriction. 2. Hypokalemia secondary to diuretics, currently being replaced. Check magnesium if not done this admission. 3. Recent inguinal hernia repair on 03/26/2020. 4. History of hyperlipidemia. 5. History of chronic liver disease and ETOH abuse with chronic thrombocytopenia and leukopenia. PLAN: Continue off 3% saline. Encourage increased oral intake. Maintain some degree of free water restriction. Hold off on diuretics. Check magnesium level and replace potassium aggressively. Serum sodium has increased by about 8-9 point from yesterday and over 24 hours, which is appropriate, particularly given the acute onset of the hyponatremia. Thank you for this consultation. We will continue to follow the patient with you during her hospitalization. MMKRYSTLEL / BALTAZARN: [id number] /
[2020-04-17 19:59] LABS: Potassium 3.5 mmol/L (3.5-5.1)
--- NOTE | 2020-04-17 22:43 | PN ---
PROGRESS NOTE 75-year-old female who is in ICU due to severe hyponatremia, hypokalemia. Her sodium is now 126, potassium 3.5. She is doing much better. She got 3% normal saline. She had some confusion secondary to hyponatremia and hypokalemia. She is doing much better. Giving appropriate answers, sitting up in bed, talking to me today. Blood pressure is 130-118 systolic. CARDIOVASCULAR: S1, S2. LUNGS: Clear. ABDOMEN: Soft. EXTREMITIES: No edema. Cranial nerves are intact. ASSESSMENT: 1. Hypovolemic hyponatremia, currently improved with 3% saline. 2. Hypokalemia secondary to diuretics. 3. Recent inguinal hernia repair. 4. Dyslipidemia. 5. History of chronic liver disease and alcohol abuse. 6. Chronic thrombocytopenia and leukopenia. Continue 3% saline. Maintain some degree of free water restriction. Hold off on diuretics. Check magnesium and potassium aggressively. She is doing much better. ICU time: 30 minutes. MMODL / IJN: [id number] /
[2020-04-18] MEDS: traMADol 50 MG TAB PO PRN ×3 (02:57→20:09)
[2020-04-18 05:58] LABS: Basophils % (A) 0 %; Eosinophils # (A) 0.1 k/uL (0-0.7); Eosinophils % (A) 4 %; HCT 36.2 % (34.0-46.0); HGB 12.8 gm/dL (11.4-16.0); Lymphocytes # (A) 0.6 k/uL (1.0-4.8); Lymphocytes % (A) 23 %; MCH 32.9 pg (25.0-35.0); MCHC 35.4 g/dL (31.0-37.0); MCV 92.9 fL (80.0-100.0); Mean Platelet Volume 8.1; Monocytes # (A) 0.3 k/uL (0-1.0); Monocytes % (A) 11 %; Neutrophils # (A) 1.6 k/uL (1.3-7.7); Neutrophils % (A) 59 %; RBC 3.89 m/uL (3.80-5.40); RDW 14.1 % (11.5-15.5); WBC 2.7 k/uL (3.8-10.6)
[2020-04-18 06:16] LABS: African American GFR (CKD) >90 (>60 ml/min/1.73 sqM); Albumin 2.8 g/dL (3.5-5.0); Anion Gap 5 mmol/L; Blood Urea Nitrogen 4 mg/dL (7-17); Calcium 8.2 mg/dL (8.4-10.2); Carbon Dioxide 23 mmol/L (22-30); Chloride 101 mmol/L (98-107); Glucose 98 mg/dL (74-99); Non-African American GFR(CKD) >90 (>60 ml/min/1.73 sqM); Potassium 4.2 mmol/L (3.5-5.1); Sodium 129 mmol/L (137-145); Total Protein 6.7 g/dL (6.3-8.2)
[2020-04-18 06:17] LABS: ALT 14 U/L (4-34); AST 39 U/L (14-36); Alkaline Phosphatase 106 U/L (38-126); Total Bilirubin 1.5 mg/dL (0.2-1.3)
[2020-04-18 06:20] LABS: Platelet Count 67 k/uL (150-450)
[2020-04-18] MEDS: SODIUM CHLORIDE 0.9% 1,000 ML IV SCH (11:17)
--- NOTE | 2020-04-18 11:45 | PN ---
PROGRESS NOTE Patient is seen for followup for hyponatremia. She was admitted to the hospital with weakness and was found to have a serum sodium of 115. The patient received 3% saline as there was some mental status changes initially. Her sodium improved to 123 and 3% saline was discontinued. Since then, her serum sodium continued to increase. Yesterday it was 126 down from 127 and patient was started on normal saline today. Her serum sodium is at 129. Urine osmolality was 246 and random urine sodium was low at less than 10. Patient had recent inguinal hernia repair and surgery on 03/26/2020, and she also has a history of chronic liver disease and ETOH abuse with chronic thrombocytopenia and leukopenia. PHYSICAL EXAMINATION: On examination today, patient is sitting comfortably. She is awake, not in any acute distress. Blood pressure is 118/55, heart rate 78 per minute, she is afebrile. Examination of the heart S1, S2. Examination of the lungs, bilateral breath sounds are heard. Abdomen is soft, nontender. Examination of lower extremities shows no evidence of edema. [employer] exam grossly intact. LAB: Show sodium 129, potassium 4.2, chloride 101, BUN 4, serum creatinine 0.36. Magnesium was 1.8 yesterday. ASSESSMENT: 1. Hyponatremia, mainly hypovolemic initially, maintained on 3% saline secondary to mental status changes on initial admission, currently resolved. The patient is now switched over to normal saline. We will continue that and repeat a serum sodium this evening and then again in a.m. She is advised to increase her oral protein intake and maintain some degree of free water restriction. I will hold off on diuretics for now. Encourage increased oral intake, particularly protein. 2. There is a history of chronic liver disease and ETOH abuse with chronic thrombocytopenia and leukopenia. 3. Recent inguinal hernia repair on 03/26/2020. 4. History of hyperlipidemia. 5. Hypokalemia secondary to diuretics status post replacement. PLAN: Continue normal saline. Repeat sodium this afternoon and then again in a.m. Increase protein intake. Maintain some degree of free water restriction. Hold off on Lasix for now. MMODL / IJN: [id number] /
[2020-04-19] MEDS: traMADol 50 MG TAB PO PRN ×4 (03:24→22:26)
[2020-04-19] MEDS: SODIUM CHLORIDE 0.9% 1,000 ML IV SCH (03:24)
[2020-04-19 05:07] LABS: Basophils % (A) 0 %; Eosinophils # (A) 0.1 k/uL (0-0.7); Eosinophils % (A) 4 %; HCT 38.3 % (34.0-46.0); HGB 12.5 gm/dL (11.4-16.0); Lymphocytes # (A) 0.7 k/uL (1.0-4.8); Lymphocytes % (A) 31 %; MCH 31.2 pg (25.0-35.0); MCHC 32.6 g/dL (31.0-37.0); MCV 95.8 fL (80.0-100.0); Mean Platelet Volume 7.7; Monocytes # (A) 0.2 k/uL (0-1.0); Monocytes % (A) 11 %; Neutrophils # (A) 1.1 k/uL (1.3-7.7); Neutrophils % (A) 50 %; RDW 14.2 % (11.5-15.5); WBC 2.3 k/uL (3.8-10.6)
[2020-04-19 05:11] LABS: Platelet Count 58 k/uL (150-450)
[2020-04-19 05:18] LABS: African American GFR (CKD) >90 (>60 ml/min/1.73 sqM); Anion Gap 7 mmol/L; Blood Urea Nitrogen 5 mg/dL (7-17); Calcium 8.4 mg/dL (8.4-10.2); Carbon Dioxide 20 mmol/L (22-30); Chloride 100 mmol/L (98-107); Glucose 90 mg/dL (74-99); Non-African American GFR(CKD) >90 (>60 ml/min/1.73 sqM); Potassium 4.1 mmol/L (3.5-5.1); Sodium 127 mmol/L (137-145)
--- NOTE | 2020-04-19 07:31 | PN ---
PROGRESS NOTE DATE OF SERVICE: 04/18/2020 75-year-old white female with syncope, severe hyponatremia, hypokalemia. Potassium within normal range. Sodium 130. Mental status changes are greatly improved. Cardiovascular S1, S2. Lungs are clear. GI soft. Hematology negative Homans. ASSESSMENT: 1. Status post small-bowel obstruction surgery. 2. Dehydration. 3. Prerenal renal failure. 4. Tubular necrosis. 5. Severe hyponatremia, hypokalemia causing metabolic encephalopathy. The patient is greatly improving. Send her out of ICU to a normal floor. Monitor electrolytes. Continuing hold diuretics. Please see further orders. ICU time 30 minutes. MMODL / IJN: [id number] /
--- NOTE | 2020-04-19 08:48 | P.PN ---
Subjective patient is seen in follow-up for hyponatremia. She denies chest pain or shortness of breath. No vomiting. Does admit to loose bowel movements at time. Oral intake is fair. She is maintained on normal saline. Sodium level 127 this morning. Vital signs are stable. General: The patient appeared well nourished and normally developed. HEENT: Head exam is unremarkable. Neck is without jugular venous distension. LUNGS: Lungs are clear to auscultation and percussion. Breath sounds decreased. HEART: Rate and Rhythm are regular. ABDOMEN: soft, nontender. EXTREMITITES: No clubbing, cyanosis, or edema. Objective - Vital Signs Vital signs: Vital Signs Temp 98.2 F 04/19/20 04:00 Pulse 80 04/19/20 08:00 Resp 9 L 04/19/20 08:00 BP 115/75 04/19/20 08:00 Pulse Ox 98 04/19/20 08:00 Intake & Output 04/18/20 04/19/20 04/19/20 18:59 06:59 18:59 Intake Total 3025 225 540 Output Total 3 4 Balance 3022 221 540 Weight 66.3 kg Intake: IV 2225 225 300 Sodium Chloride 0.9% 1, 2225 225 300 000 ml @ 75 mls/hr IV . [id number] [facility] Rx#:[id number] Oral 800 240 Output: Urine 1 Stool 3 3 Other: Voiding Method Bedside Commode Bedside Commode Bedside Commode # Voids 1 1 1 # Bowel Movements 1 - Labs CBC & Chem 7: 04/19/20 04:22 04/19/20 04:22 Labs: Abnormal Lab Results - Last 24 Hours (Table) 04/18/20 04/19/20 04/19/20 Range/Units 18:09 04:22 04:22 WBC 2.3 L (3.8-10.6) k/uL Plt Count 58 L (150-450) k/uL Neutrophils # 1.1 L (1.3-7.7) k/uL Lymphocytes # 0.7 L (1.0-4.8) k/uL Sodium 128 L 127 L (137-145) mmol/L Carbon Dioxide 20 L (22-30) mmol/L BUN 5 L (7-17) mg/dL Creatinine 0.34 L (0.52-1.04) mg/dL Assessment and Plan Plan: Assessment: 1. Hyponatremia. Initially hypovolemic. Now appears euvolemic. Sodium level dropping with normal saline. 127 this morning. 2. History of chronic liver disease secondary to alcohol abuse. 3. Status post inguinal hernia repair on 03/26/2020. 4. Hypokalemia from poor intake status post placement. Plan: Hep-Lock IV fluids. Add ensure3 times daily. Encouraged oral intake, particularly protein. 1200 mL fluid restriction. Repeat urine osmolality and urine sodium level. Repeat electrolytes in the morning.
--- NOTE | 2020-04-19 15:29 | P.PN ---
Subjective Progress Note Date: 04/19/20 Principal diagnosis: Severe degree of electrolyte imbalance due to liver disease as well as nutritional impairment Severe hyponatremia Hypokalemia Pancytopenia with leukopenia as well as thrombocytopenia Alcohol-related hepatitis Generalized weakness fatigue likely related to electrolyte imbalance 04/19/2020, patient seen and evaluated examined during rounds labs reviewed medications reviewed sodium level continued to improve slowly, patient mental status as well as coordination along with generalized weakness continued to improve, labs are reviewed reviewed, [facility], now hard of the ICU, white cell count remains stable 2300, platelet count if remains 58,000, sodium is 127, BUN/creatinine stable patient is gradually getting out of the bed and walking to the side chair as well as bathroom with support, denies any chest pain or shortness of breath respiratory status remains stable on room air This is a 75-year-old female 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 has been sober for last several week, patient presented into the hospital with generalized weakness fatigue, she has history of chronic hypokalemia has been on potassium replacement therapy, she has been feeling lightheaded and dizzy on arrival she was noted to have severe hypokalemia and hyponatremia potassium has been replaced along with 3% saline, which is being discontinued, renal services has been following this patient as well denies any chest pain shortness of breath cough or sputum production, patient has some component of pancytopenia as well with leukopenia and thrombocytopenia hemoglobin stable 12.5, total bilirubin is 2.3, random sodium level in the urine is less than 10 with urine osmole 246 Objective - Vital Signs Vital signs: Vital Signs Temp 98.2 F 04/19/20 04:00 Pulse 72 04/19/20 14:00 Resp 13 04/19/20 14:00 BP 150/58 04/19/20 14:00 Pulse Ox 98 04/19/20 08:00 Intake & Output 04/18/20 04/19/20 04/19/20 18:59 06:59 18:59 Intake Total 3025 225 780 Output Total 3 4 Balance 3022 221 780 Weight 66.3 kg Intake: IV 2224 225 300 Sodium Chloride 0.9% 2224 300 000 ml @ 75 mls/hr IV . [id number] [facility] Rx#:[id number] Oral 800 480 Output: Urine 1 Stool 3 3 Other: Voiding Method Bedside Commode Bedside Commode Bedside Commode # Voids 1 1 1 # Bowel Movements 1 - Exam - Constitutional General appearance: average body habitus, cooperative, disheveled - EENT Eyes: anicteric sclerae, EOMI Ears: bilateral: normal - Neck Neck: normal ROM Carotids: bilateral: upstroke normal Thyroid: negative: normal size - Respiratory Respiratory: bilateral: CTA - Cardiovascular Rhythm: regular Heart sounds: normal: S1, S2 - Gastrointestinal General gastrointestinal: decreased bowel sounds, soft - Integumentary Integumentary: normal turgor - Neurologic Neurologic: CNII-XII intact - Musculoskeletal Musculoskeletal: generalized weakness, strength equal bilaterally - Psychiatric Psychiatric: A&O x's 3, appropriate affect, intact judgment & insight - Labs CBC & Chem 7: 04/19/20 04:22 04/19/20 04:22 Labs: Abnormal Lab Results - Last 24 Hours (Table) 04/18/20 04/19/20 04/19/20 Range/Units 18:09 04:22 04:22 WBC 2.3 L (3.8-10.6) k/uL Plt Count 58 L (150-450) k/uL Neutrophils # 1.1 L (1.3-7.7) k/uL Lymphocytes # 0.7 L (1.0-4.8) k/uL Sodium 128 L 127 L (137-145) mmol/L Carbon Dioxide 20 L (22-30) mmol/L BUN 5 L (7-17) mg/dL Creatinine 0.34 L (0.52-1.04) mg/dL Assessment and Plan Assessment: Severe degree of electrolyte imbalance due to liver disease as well as nutritional impairment Severe hyponatremia Hypokalemia Pancytopenia with leukopenia as well as thrombocytopenia Alcohol-related hepatitis Generalized weakness fatigue likely related to electrolyte imbalance Plan: Slow correction of hyponatremia 12 meq per 24 hours Aggressive correction of hypokalemia Patient is now on normal saline PT OT evaluation Increase activity as tolerated Peptic ulcer disease prophylaxis and DVT prophylaxis Further recommendations pending plan of care as per clinical response of the patient Time with Patient: Greater than 30
[2020-04-20] MEDS: traMADol 50 MG TAB PO PRN ×4 (02:21→20:54)
[2020-04-20 05:23] LABS: ALT 14 U/L (4-34); AST 40 U/L (14-36); African American GFR (CKD) >90 (>60 ml/min/1.73 sqM); Albumin 2.6 g/dL (3.5-5.0); Alkaline Phosphatase 132 U/L (38-126); Anion Gap 5 mmol/L; Blood Urea Nitrogen 5 mg/dL (7-17); Calcium 8.4 mg/dL (8.4-10.2); Carbon Dioxide 26 mmol/L (22-30); Chloride 94 mmol/L (98-107); Glucose 85 mg/dL (74-99); Magnesium 1.4 mg/dL (1.6-2.3); Non-African American GFR(CKD) >90 (>60 ml/min/1.73 sqM); Potassium 3.9 mmol/L (3.5-5.1); Sodium 125 mmol/L (137-145); Total Bilirubin 1.1 mg/dL (0.2-1.3); Total Protein 6.2 g/dL (6.3-8.2)
[2020-04-20] MEDS: MAGNESIUM SULFATE-D5W PMX 1 GM in DEXTROSE/WATER 1 100ML.BAG IVPB SCH ×2 (06:52→09:08)
--- NOTE | 2020-04-20 08:34 | P.PN ---
Subjective patient is seen in follow-up for hyponatremia. She denies chest pain or shortness of breath. No vomiting. No diarrhea last night or today. Oral intake is fair. Sodium level 125 this morning. Vital signs are stable. General: The patient appeared well nourished and normally developed. HEENT: Head exam is unremarkable. Neck is without jugular venous distension. LUNGS: Lungs are clear to auscultation and percussion. Breath sounds decreased. HEART: Rate and Rhythm are regular. ABDOMEN: soft, nontender. EXTREMITITES: No clubbing, cyanosis, or edema. Objective - Vital Signs Vital signs: Vital Signs Temp 98.3 F 04/20/20 06:00 Pulse 70 04/20/20 07:40 Resp 16 04/20/20 07:40 BP 140/66 04/20/20 06:00 Pulse Ox 96 04/20/20 06:00 Intake & Output 04/19/20 04/20/20 04/20/20 18:59 06:59 18:59 Intake Total 1020 240 Balance 1020 240 Weight 67 kg Intake: IV 300 Sodium Chloride 0.9% 1, 300 000 ml @ 75 mls/hr IV . [id number] [facility] Rx#:[id number] Oral 720 240 Other: Voiding Method Bedside Commode Bedside Commode Bedside Commode # Voids 1 1 - Labs CBC & Chem 7: 04/19/20 04:22 04/20/20 04:21 Labs: Abnormal Lab Results - Last 24 Hours (Table) 04/20/20 Range/Units 04:21 Sodium 125 L (137-145) mmol/L Chloride 94 L (98-107) mmol/L BUN 5 L (7-17) mg/dL Creatinine 0.34 L (0.52-1.04) mg/dL Magnesium 1.4 L (1.6-2.3) mg/dL AST 40 H (14-36) U/L Alkaline Phosphatase 132 H (38-126) U/L Total Protein 6.2 L (6.3-8.2) g/dL Albumin 2.6 L (3.5-5.0) g/dL Assessment and Plan Plan: Assessment: 1. Hyponatremia. Initially hypovolemic. Now appears euvolemic. Sodium level dropped with normal saline. Poor solute intake has BUN is 5. Sodium level 125 this morning. 2. History of chronic liver disease secondary to alcohol abuse. 3. Status post inguinal hernia repair on 03/26/2020. 4. Hypokalemia from poor intake status post placement. 5. Hypomagnesemia from poor oral intake and GI losses. Plan: Remains off IV fluids. Maintain ensure 3 times daily. Encouraged oral intake, particularly protein. 1200 mL fluid restriction. Add sodium chloride tablets. If no improvement in her sodium level tomorrow, will consider Samsca.
--- NOTE | 2020-04-20 08:44 | PN ---
PROGRESS NOTE DATE OF SERVICE: 04/19/2020 Admitted. She is still in ICU. She has severe degree of electrolyte imbalance, liver disease, nutritional impairment, severe hyponatremia, hypokalemia, pancytopenia, leukopenia, thrombocytopenia, alcohol related hepatitis. She is feeling better. She is talking. She is more alert. She has been up in the chair. She is doing better at this time. Liver enzymes, total bilirubin is 2.3. Hemoglobin stable 12.5. Temp 98.2, pulse 70, respiratory 18-20, blood pressure 150/50, O2 sats 98. Average body habitus, disheveled. Cardiovascular S1, S2. Lungs clear. GI is distended, obesity. No mass. Hematology: Negative Homans. NEUROLOGIC: Cranial nerves are intact. PSYCH: Fair mood and affect. Hemoglobin 12.5, white count is 2.3, platelets 58. Sodium 127, potassium 4.1, BUN is 5, creatinine 0.34. ASSESSMENT: 1. Severe hyponatremia. 2. Hypokalemia. 3. Nutritional impairment. 4. Pancytopenia. 5. Leukopenia. 6. Thrombocytopenia. 7. Alcohol-related hepatitis. 8. Generalized weakness. 9. Electrolytes imbalance. Continue correction of hyponatremia and hypokalemia. Continue IV fluids. PT/OT. Increase activity. Possible discharge home in the next 48 hours. ICU time 30 minutes. MMODL / IJN: [id number] /
[2020-04-20] MEDS: SODIUM CHLORIDE TAB 1 GM TAB PO SCH ×3 (09:08→20:54)
[2020-04-20] MEDS: HYDROcodone/APAP 7.5-325MG 1 EACH TAB PO PRN ×2 (13:44→21:45)
[2020-04-20] MEDS: LIDOCAINE 5% PATCH TOPICAL SCH (17:41)
[2020-04-21] MEDS: traMADol 50 MG TAB PO PRN (00:24)
--- NOTE | 2020-04-21 02:37 | PN ---
PROGRESS NOTE Sodium is 125 today. She is still having severe back pain. Dr. Rosas increased pain medicines from tramadol to [place]. Sodium chloride tablets have been given today, salt pills, to increase the sodium. If not, another medication will be given tomorrow. CARDIOVASCULAR: S1, S2. LUNGS: Clear. GI: Soft. HEMATOLOGY: Negative Homans. PSYCH: Fair mood and affect. ASSESSMENT: 1. Hyponatremia. 2. Hypokalemia. 3. Dehydration. 4. Malnutrition. 5. Liver cirrhosis. Continue current treatments as mentioned above. ICU TIME: 20 minutes. MMODL / IJN: [id number] /
[2020-04-21 06:40] LABS: African American GFR (CKD) >90 (>60 ml/min/1.73 sqM); Anion Gap 5 mmol/L; Blood Urea Nitrogen 7 mg/dL (7-17); Calcium 8.5 mg/dL (8.4-10.2); Carbon Dioxide 28 mmol/L (22-30); Chloride 93 mmol/L (98-107); Glucose 89 mg/dL (74-99); Non-African American GFR(CKD) >90 (>60 ml/min/1.73 sqM); Potassium 4.1 mmol/L (3.5-5.1); Sodium 126 mmol/L (137-145)
[2020-04-21] MEDS: SODIUM CHLORIDE TAB 1 GM TAB PO SCH ×3 (08:26→21:22)
[2020-04-21 08:28] VITALS: RESP 16
--- NOTE | 2020-04-21 09:00 | P.PN ---
Subjective Progress Note Date: 04/21/20 Principal diagnosis: Severe degree of electrolyte imbalance due to liver disease as well as nutritional impairment Severe hyponatremia Hypokalemia Pancytopenia with leukopenia as well as thrombocytopenia Alcohol-related hepatitis Generalized weakness fatigue likely related to electrolyte imbalance 04/21/2020, patient seen and evaluated examined during the rounds labs reviewed medications reviewed chronic back pain is present which is controlled with tramadol as well as well needed, patient remains in a year, revealing comfortably denies any chest pain sitting upright in chair, chest x-ray chronic changes, sodium stable high 120s, denies any chest pain denies any dizziness or condition continued to improve progressively, his last potassium is up to 4.1 now stable renal functions 04/19/2020, patient seen and evaluated examined during rounds labs reviewed medications reviewed sodium level continued to improve slowly, patient mental status as well as coordination along with generalized weakness continued to improve, labs are reviewed reviewed, patient is bordering [facility] care, now hard of the ICU, white cell count remains stable 2300, platelet count if remains 58,000, sodium is 127, BUN/creatinine stable patient is gradually getting out of the bed and walking to the side chair as well as bathroom with support, denies any chest pain or shortness of breath respiratory status remains stable on room air This is a 75-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 sober for last several week, patient presented into the hospital with generalized weakness fatigue, she has history of chronic hypokalemia has been on potassium replacement therapy, she has been feeling lightheaded and dizzy on arrival she was noted to have severe hypokalemia and hyponatremia potassium has been replaced along with 3% saline, which is being discontinued, renal services has been following this patient as well denies any chest pain shortness of breath cough or sputum production, patient has some component of pancytopenia as well with leukopenia and thrombocytopenia hemoglobin stable 12.5, total bilirubin is 2.3, random sodium level in the urine is less than 10 with urine osmole 246 Objective - Vital Signs Vital signs: Vital Signs Temp 97.5 F L 04/21/20 08:00 Pulse 81 04/21/20 08:00 Resp 16 04/21/20 08:00 BP 118/56 04/21/20 08:00 Pulse Ox 97 04/21/20 08:00 Intake & Output 04/20/20 04/21/20 04/21/20 18:59 06:59 18:59 Intake Total 710 290 120 Balance 710 290 120 Weight 66.6 kg Intake: Intake, IV Titration 100 Amount Magnesium Sulfate-D5w Pmx 100 1 gm In Dextrose/Water 1 100ml.bag @ 100 mls/hr IVPB Q1H [id number] Rx#: [id number] Oral 610 290 120 Other: Voiding Method Bedside Commode Bedside Commode # Voids 400 0 - Exam - Constitutional General appearance: average body habitus, cooperative, disheveled - EENT Eyes: anicteric sclerae, EOMI Ears: bilateral: normal - Neck Neck: normal ROM Carotids: bilateral: upstroke normal Thyroid: negative: normal size - Respiratory Respiratory: bilateral: CTA - Cardiovascular Rhythm: regular Heart sounds: normal: S1, S2 - Gastrointestinal General gastrointestinal: decreased bowel sounds, soft - Integumentary Integumentary: normal turgor - Neurologic Neurologic: CNII-XII intact - Musculoskeletal Musculoskeletal: generalized weakness, strength equal bilaterally - Psychiatric Psychiatric: A&O x's 3, appropriate affect, intact judgment & insight - Labs CBC & Chem 7: 04/19/20 04:22 04/21/20 05:42 Labs: Abnormal Lab Results - Last 24 Hours (Table) 04/21/20 Range/Units 05:42 Sodium 126 L (137-145) mmol/L Chloride 93 L (98-107) mmol/L Creatinine 0.38 L (0.52-1.04) mg/dL Assessment and Plan Assessment: Severe degree of electrolyte imbalance due to liver disease as well as nutritional impairment Severe hyponatremia Hypokalemia Pancytopenia with leukopenia as well as thrombocytopenia Alcohol-related hepatitis Generalized weakness fatigue likely related to electrolyte imbalance Possible baseline COPD Plan: Continue to monitor sodium very closely Aggressive correction of hypokalemia, avoid development of hypocalcemia PT OT evaluation Increase activity as tolerated Peptic ulcer disease prophylaxis and DVT prophylaxis Further recommendations pending plan of care as per clinical response of the patient Stable pulmonary standpoint for discharge and follow-up in outpatient basis Time with Patient: Greater than 30
--- NOTE | 2020-04-21 17:24 | P.PN ---
Subjective patient is seen in follow-up for hyponatremia. She denies chest pain or shortness of breath. No vomiting or diarrhea. Oral intake is fair. Sodium level 126 this morning. Oral intake slowly improving. Vital signs are stable. General: The patient appeared well nourished and normally developed. HEENT: Head exam is unremarkable. Neck is without jugular venous distension. LUNGS: Lungs are clear to auscultation and percussion. Breath sounds decreased. HEART: Rate and Rhythm are regular. ABDOMEN: soft, nontender. EXTREMITITES: No clubbing, cyanosis, or edema. Objective - Vital Signs Vital signs: Vital Signs Temp 97.5 F L 04/21/20 08:00 Pulse 76 04/21/20 16:00 Resp 16 04/21/20 16:00 BP 136/72 04/21/20 16:00 Pulse Ox 97 04/21/20 08:00 Intake & Output 04/20/20 04/21/20 04/21/20 18:59 06:59 18:59 Intake Total 710 290 238 Output Total 1 Balance 710 290 237 Weight 66.6 kg Intake: Intake, IV Titration 100 Amount Magnesium Sulfate-D5w Pmx 100 1 gm In Dextrose/Water 1 100ml.bag @ 100 mls/hr IVPB Q1H [facility] Rx#: [id number] Oral 610 290 238 Output: Stool 1 Other: Voiding Method Bedside Commode Bedside Commode Bedside Commode # Voids 400 0 2 - Labs CBC & Chem 7: 04/19/20 04:22 04/21/20 05:42 Labs: Abnormal Lab Results - Last 24 Hours (Table) 04/21/20 Range/Units 05:42 Sodium 126 L (137-145) mmol/L Chloride 93 L (98-107) mmol/L Creatinine 0.38 L (0.52-1.04) mg/dL Assessment and Plan Plan: Assessment: 1. Hyponatremia. Initially hypovolemic. Now appears euvolemic. Sodium level dropped with normal saline. Poor solute intake as BUN quite low. Sodium level 126 this morning. 2. History of chronic liver disease secondary to alcohol abuse. 3. Status post inguinal hernia repair on 03/26/2020. 4. Hypokalemia from poor intake status post placement. Better. 5. Hypomagnesemia from poor oral intake and GI losses. Plan: Maintain ensure 3 times daily. Encouraged oral intake, particularly protein. 1200 mL fluid restriction. Maintain sodium chloride tablets. I will give her a dose of Samsca if sodium level drops. Add oral magnesium oxide. Repeat electrolytes in the morning.
[2020-04-21] MEDS: MAGNESIUM OXIDE 400 MG TAB PO SCH (18:31)
[2020-04-21] MEDS: LIDOCAINE 5% PATCH TOPICAL SCH (18:31)
[2020-04-22] MEDS: HYDROcodone/APAP 7.5-325MG 1 EACH TAB PO PRN ×2 (06:45→14:14)
[2020-04-22 07:32] LABS: Basophils % (A) 0 %; Eosinophils # (A) 0.1 k/uL (0-0.7); Eosinophils % (A) 4 %; HCT 33.2 % (34.0-46.0); HGB 11.5 gm/dL (11.4-16.0); Lymphocytes # (A) 0.7 k/uL (1.0-4.8); Lymphocytes % (A) 28 %; MCH 32.4 pg (25.0-35.0); MCHC 34.8 g/dL (31.0-37.0); MCV 93.2 fL (80.0-100.0); Mean Platelet Volume 8.1; Monocytes # (A) 0.3 k/uL (0-1.0); Monocytes % (A) 11 %; Neutrophils # (A) 1.3 k/uL (1.3-7.7); Neutrophils % (A) 55 %; RBC 3.56 m/uL (3.80-5.40); RDW 14.1 % (11.5-15.5); WBC 2.4 k/uL (3.8-10.6)
[2020-04-22 07:34] LABS: Platelet Count 61 k/uL (150-450)
[2020-04-22 07:53] LABS: ALT 15 U/L (4-34); AST 42 U/L (14-36); African American GFR (CKD) >90 (>60 ml/min/1.73 sqM); Albumin 2.7 g/dL (3.5-5.0); Alkaline Phosphatase 119 U/L (38-126); Anion Gap 7 mmol/L; Blood Urea Nitrogen 6 mg/dL (7-17); Carbon Dioxide 28 mmol/L (22-30); Chloride 95 mmol/L (98-107); Glucose 117 mg/dL (74-99); Magnesium 1.6 mg/dL (1.6-2.3); Non-African American GFR(CKD) >90 (>60 ml/min/1.73 sqM); Potassium 3.9 mmol/L (3.5-5.1); Sodium 130 mmol/L (137-145); Total Bilirubin 1.1 mg/dL (0.2-1.3); Total Protein 6.2 g/dL (6.3-8.2)
[2020-04-22] MEDS: SODIUM CHLORIDE TAB 1 GM TAB PO SCH ×3 (08:31→23:37)
[2020-04-22] MEDS: MAGNESIUM OXIDE 400 MG TAB PO SCH (08:31)
--- NOTE | 2020-04-22 10:38 | P.PN ---
Subjective patient is seen in follow-up for hyponatremia. She denies chest pain or shortness of breath. No vomiting or diarrhea. Oral intake is fair. Sodium level 130 this morning. Oral intake gradually improving. No edema. No active complaints. Vital signs are stable. General: The patient appeared well nourished and normally developed. HEENT: Head exam is unremarkable. Neck is without jugular venous distension. LUNGS: Lungs are clear to auscultation and percussion. Breath sounds decreased. HEART: Rate and Rhythm are regular. ABDOMEN: soft, nontender. EXTREMITITES: No clubbing, cyanosis, or edema. Objective - Vital Signs Vital signs: Vital Signs Temp 98.2 F 04/22/20 08:00 Pulse 72 04/22/20 08:00 Resp 16 04/22/20 08:00 BP 135/70 04/22/20 08:00 Pulse Ox 96 04/22/20 04:00 Intake & Output 04/21/20 04/22/20 04/22/20 18:59 06:59 18:59 Intake Total 356 300 Output Total 1 Balance 355 300 Weight 66.8 kg Intake: Oral 356 300 Output: Stool 1 Other: Voiding Method Bedside Commode Bedside Commode # Voids 5 2 1 # Bowel Movements 1 - Labs CBC & Chem 7: 04/22/20 06:31 04/22/20 06:31 Labs: Abnormal Lab Results - Last 24 Hours (Table) 04/22/20 04/22/20 Range/Units 06:31 06:31 WBC 2.4 L (3.8-10.6) k/uL RBC 3.56 L (3.80-5.40) m/uL Hct 33.2 L (34.0-46.0) % Plt Count 61 L (150-450) k/uL Lymphocytes # 0.7 L (1.0-4.8) k/uL Sodium 130 L (137-145) mmol/L Chloride 95 L (98-107) mmol/L BUN 6 L (7-17) mg/dL Creatinine 0.37 L (0.52-1.04) mg/dL Glucose 117 H (74-99) mg/dL Calcium 8.0 L (8.4-10.2) mg/dL AST 42 H (14-36) U/L Total Protein 6.2 L (6.3-8.2) g/dL Albumin 2.7 L (3.5-5.0) g/dL Assessment and Plan Plan: Assessment: 1. Hyponatremia. Initially hypovolemic. Now appears euvolemic. Sodium level dropped with normal saline. Poor solute intake as BUN quite low. Sodium level 130 this morning. 2. History of chronic liver disease secondary to alcohol abuse. 3. Status post inguinal hernia repair on 03/26/2020. 4. Hypokalemia from poor intake status post placement. Better. 5. Hypomagnesemia from poor oral intake and GI losses. Better. Plan: Maintain ensure 3 times daily. Encouraged oral intake, particularly protein. 1200 mL fluid restriction. Maintain sodium chloride tablets. replace magnesium. 2 g IV today. Repeat electrolytes in the morning.
[2020-04-22 11:49] VITALS: BMI 27.8
[2020-04-22] MEDS: MAGNESIUM SULFATE-D5W PMX 1 GM in DEXTROSE/WATER 1 100ML.BAG IVPB SCH ×2 (12:26→14:15)
[2020-04-22] MEDS: LIDOCAINE 5% PATCH TOPICAL SCH (14:12)
--- NOTE | 2020-04-22 14:55 | P.PN ---
Subjective Progress Note Date: 04/22/20 Principal diagnosis: Severe degree of electrolyte imbalance due to liver disease as well as nutritional impairment Severe hyponatremia Hypokalemia Pancytopenia with leukopenia as well as thrombocytopenia Alcohol-related hepatitis Generalized weakness fatigue likely related to electrolyte imbalance 04/22/2020, patient seen eval examined during the rounds sitting upright in chair breathing comfortably off of oxygen, denies any chest pain, sodium is up to 130 this morning, adequate by mouth intake 04/21/2020, patient seen and evaluated examined during the rounds labs reviewed medications reviewed chronic back pain is present which is controlled with tramadol as well as well needed, patient remains in a year, revealing comfortably denies any chest pain sitting upright in chair, chest x-ray chronic changes, sodium stable high 120s, denies any chest pain denies any dizziness or condition continued to improve progressively, his last potassium is up to 4.1 now stable renal functions 04/19/2020, patient seen and evaluated examined during rounds labs reviewed medications reviewed sodium level continued to improve slowly, patient mental status as well as coordination along with generalized weakness continued to improve, labs are reviewed reviewed, patient is bordering 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, patient presented into the hospital with generalized weakness fatigue, she has history of chronic hypokalemia has been on potassium replacement therapy, she has been feeling lightheaded and dizzy on arrival she was noted to have severe hypokalemia and hyponatremia potassium has been replaced along with 3% saline, which is being discontinued, renal services has been following this patient as well denies any chest pain shortness of breath cough or sputum production, patient has some component of pancytopenia as well with leukopenia and thrombocytopenia hemoglobin stable 12.5, total bilirubin is 2.3, random sodium level in the urine is less than 10 with urine osmole 246 Objective - Vital Signs Vital signs: Vital Signs Temp 98.2 F 04/22/20 08:00 Pulse 82 04/22/20 12:00 Resp 16 04/22/20 14:33 BP 177/77 04/22/20 12:00 Pulse Ox 100 04/22/20 12:00 Intake & Output 04/21/20 04/22/20 04/22/20 18:59 06:59 18:59 Intake Total 356 600 Output Total 1 4 Balance 355 596 Weight 66.8 kg 66.8 kg Intake: Oral 356 600 Output: Urine 1 Stool 1 3 Other: Voiding Method Bedside Commode Bedside Commode Bedside Commode # Voids 5 2 1 # Bowel Movements 1 - Exam - Constitutional General appearance: average body habitus, cooperative, disheveled - EENT Eyes: anicteric sclerae, EOMI Ears: bilateral: normal - Neck Neck: normal ROM Carotids: bilateral: upstroke normal Thyroid: negative: normal size - Respiratory Respiratory: bilateral: CTA - Cardiovascular Rhythm: regular Heart sounds: normal: S1, S2 - Gastrointestinal General gastrointestinal: decreased bowel sounds, soft - Integumentary Integumentary: normal turgor - Neurologic Neurologic: CNII-XII intact - Musculoskeletal Musculoskeletal: generalized weakness, strength equal bilaterally - Psychiatric Psychiatric: A&O x's 3, appropriate affect, intact judgment & insight - Labs CBC & Chem 7: 04/22/20 06:31 04/22/20 06:31 Labs: Abnormal Lab Results - Last 24 Hours (Table) 04/22/20 04/22/20 Range/Units 06:31 06:31 WBC 2.4 L (3.8-10.6) k/uL RBC 3.56 L (3.80-5.40) m/uL Hct 33.2 L (34.0-46.0) % Plt Count 61 L (150-450) k/uL Lymphocytes # 0.7 L (1.0-4.8) k/uL Sodium 130 L (137-145) mmol/L Chloride 95 L (98-107) mmol/L BUN 6 L (7-17) mg/dL Creatinine 0.37 L (0.52-1.04) mg/dL Glucose 117 H (74-99) mg/dL Calcium 8.0 L (8.4-10.2) mg/dL AST 42 H (14-36) U/L Total Protein 6.2 L (6.3-8.2) g/dL Albumin 2.7 L (3.5-5.0) g/dL Assessment and Plan Assessment: Severe degree of electrolyte imbalance due to liver disease as well as nutritional impairment Severe hyponatremia Hypokalemia Pancytopenia with leukopenia as well as thrombocytopenia Alcohol-related hepatitis Generalized weakness fatigue likely related to electrolyte imbalance Possible baseline COPD Plan: Continue to monitor sodium very closely Aggressive correction of hypokalemia, avoid development of hypocalcemia PT OT evaluation Increase activity as tolerated Peptic ulcer disease prophylaxis and DVT prophylaxis Further recommendations pending plan of care as per clinical response of the patient Stable pulmonary standpoint for discharge and follow-up in outpatient basis Time with Patient: Greater than 30
[2020-04-22] MEDS: traMADol 50 MG TAB PO PRN (21:01)
[2020-04-23] MEDS: HYDROcodone/APAP 7.5-325MG 1 EACH TAB PO PRN (07:07)
[2020-04-23 07:39] LABS: African American GFR (CKD) >90 (>60 ml/min/1.73 sqM); Anion Gap 3 mmol/L; Blood Urea Nitrogen 5 mg/dL (7-17); Calcium 8.2 mg/dL (8.4-10.2); Carbon Dioxide 28 mmol/L (22-30); Chloride 98 mmol/L (98-107); Glucose 91 mg/dL (74-99); Magnesium 1.7 mg/dL (1.6-2.3); Non-African American GFR(CKD) >90 (>60 ml/min/1.73 sqM); Potassium 3.9 mmol/L (3.5-5.1); Sodium 129 mmol/L (137-145)
[2020-04-23] MEDS: MAGNESIUM OXIDE 400 MG TAB PO SCH (08:30)
--- NOTE | 2020-04-23 10:08 | P.PN ---
Subjective patient is seen in follow-up for hyponatremia. She denies chest pain or shortness of breath. No vomiting or diarrhea. Oral intake is fair. Sodium level stable at 129 this morning. Oral intake gradually improving. No edema. No active complaints. Vital signs are stable. General: The patient appeared well nourished and normally developed. HEENT: Head exam is unremarkable. Neck is without jugular venous distension. LUNGS: Lungs are clear to auscultation and percussion. Breath sounds decreased. HEART: Rate and Rhythm are regular. ABDOMEN: soft, nontender. EXTREMITITES: No clubbing, cyanosis, or edema. Objective - Vital Signs Vital signs: Vital Signs Temp 98.5 F 04/23/20 08:00 Pulse 95 04/23/20 08:00 Resp 16 04/23/20 08:00 BP 116/64 04/23/20 08:00 Pulse Ox 96 04/23/20 08:00 Intake & Output 04/22/20 04/23/20 04/23/20 18:59 06:59 18:59 Intake Total 960 Output Total 4 200 Balance 956 -200 Weight 66.8 kg 67.5 kg Intake: Oral 960 Output: Urine 1 200 Stool 3 Other: Voiding Method Bedside Commode Toilet Toilet # Voids 1 - Labs CBC & Chem 7: 04/22/20 06:31 04/23/20 06:38 Labs: Abnormal Lab Results - Last 24 Hours (Table) 04/23/20 Range/Units 06:38 Sodium 129 L (137-145) mmol/L BUN 5 L (7-17) mg/dL Creatinine 0.34 L (0.52-1.04) mg/dL Calcium 8.2 L (8.4-10.2) mg/dL Assessment and Plan Plan: Assessment: 1. Hyponatremia. Initially hypovolemic. Now appears euvolemic. Sodium level dropped with normal saline. Poor solute intake as BUN quite low. Sodium level 129 this morning. 2. History of chronic liver disease secondary to alcohol abuse. 3. Status post inguinal hernia repair on 03/26/2020. 4. Hypokalemia from poor intake status post placement. Better. 5. Hypomagnesemia from poor oral intake and GI losses. Better. Plan: Maintain ensure 3 times daily. Encouraged oral intake, particularly protein. 1200 mL fluid restriction. Maintain sodium chloride tablets. Anticipate discharge soon. Repeat BMP and magnesium level 3-4 days postdischarge. Follow up outpatient in 1-2 weeks.
[2020-04-23] MEDS: SODIUM CHLORIDE TAB 1 GM TAB PO SCH ×2 (11:29→15:05)
[2020-04-23] MEDS ORDERED: HYDROcodone/APAP 7.5-325MG 1 EACH TAB PO PRN (12:05)
[2020-04-23 12:09] VITALS: BP 106/61; PULSE 94; TEMP 98.2
--- NOTE | 2020-04-23 12:12 | P.DS ---
Providers Date of admission: 04/16/20 14:19 Expected date of discharge: 04/23/20 Attending physician: Yvon Lentz Consults: 04/16/20 16:16 Consult Physician Routine Consulting Provider: Heather Cadet Consult Reason/Comments: abd labs- sodium and chloride Do you want consulting provider notified?: Yes 04/16/20 20:33 Consult Physician Routine Consulting Provider: Phoenix Rosas Consult Reason/Comments: ICU management Do you want consulting provider notified?: Yes 04/17/20 08:59 Consult Physician Routine Consulting Provider: Starla Cardona Consult Reason/Comments: Lack of Coordination Do you want consulting provider notified?: Yes Primary care physician: [facility] Course: Final Diagnoses: Hypovolemic hyponatremia secondary to poor diet intake, currently euvolemic Dehydration secondary to the above Pancytopenia with leukopenia, thrombocytopenia Moderate protein calorie malnutrition Alcohol-related hepatitis Liver cirrhosis Hypokalemia, resolved, Hospital course this is a 75-year-old female admitted with multiple medical issues including hyponatremia, dehydration, poor oral diet intake. Evaluated by both nephrology, warehouse checker. Received electrolyte supplementation, IV hydration with 3% saline. Significant clinical improvement, sodium currently at 129. 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 Evaluated by PT, recommend home with home care. Please refer to specific notes from consults/H&P for further details. The impression and plan of care has been dictated as directed. : I performed a history and examination of this patient, discussed the same with the dictator. I agree with the dictator's note ,documented as a scribe. Any additional findings or plans will be noted. Patient Condition at Discharge: Stable Plan - Discharge Summary Discharge Rx Participant: No New Discharge Prescriptions: New Lidocaine 5% Patch [Lidoderm 5% Patch] 1 patch TOPICAL DAILY@1800 #5 patch Magnesium Oxide [Mag-Ox] 400 mg PO DAILY #30 tab Sodium Chloride Tab 1 gm PO TID #90 tab Continue ALPRAZolam [Xanax] 0.25 - 0.5 mg PO DAILY PRN PRN Reason: Anxiety traMADol HCL 50 mg PO DAILY PRN PRN Reason: Pain Discontinued Furosemide [Lasix] 20 mg PO DAILY Potassium Chloride [Klor-Con 20] 20 meq PO DAILY Discharge Medication List ALPRAZolam [Xanax] 0.25 - 0.5 mg PO DAILY PRN 08/05/19 [History] traMADol HCL 50 mg PO DAILY PRN 04/16/20 [History] Lidocaine 5% Patch [Lidoderm 5% Patch] 1 patch TOPICAL DAILY@1800 #5 patch 04/23/20 [Rx] Magnesium Oxide [Mag-Ox] 400 mg PO DAILY #30 tab 04/23/20 [Rx] Sodium Chloride Tab 1 gm PO TID #90 tab 04/23/20 [Rx] Follow up Appointment(s)/Referral(s): Yvon Lentz MD [Primary Care Provider] - 3 Days Phoenix Rosas MD [STAFF PHYSICIAN] - 1 Week Ambulatory/Diagnostic Orders: Complete Blood Count w/diff [LAB.AMB] Time Frame: 3 Days, Location: None Selected Activity/Diet/Wound Care/Special Instructions: Pending final DC recommendations and clearance from nephrology 1200 mL fluid restriction Ensure supplements 3 times a day between meals
--- NOTE | 2020-04-23 13:10 | PN ---
PROGRESS NOTE DATE OF SERVICE: 04/22/2020 75-year-old white female improving sodium at 130 with sodium chloride tablets. Having no chest pain or shortness of breath. No lightheadedness, syncope. Icing Coater discussed with her to get her protein levels up. Cardiovascular S1-S2. Lungs clear. GI soft. Hematology negative Homans. Psych: Fair mood and affect. ASSESSMENT: 1. Severe hyponatremia. 2. Malnutrition. 3. Alcoholic cirrhosis. 4. Chronic obstructive pulmonary disease. Prognosis guarded. Continue with sodium chloride pills. Current medications as above. Reviewed chart. Discharge home tomorrow. MMODL / IJN: [id number] /
--- NOTE | 2020-04-23 14:57 | P.PN ---
Subjective Progress Note Date: 04/23/20 Principal diagnosis: Severe degree of electrolyte imbalance due to liver disease as well as nutritional impairment Severe hyponatremia Hypokalemia Pancytopenia with leukopenia as well as thrombocytopenia Alcohol-related hepatitis Generalized weakness fatigue likely related to electrolyte imbalance 04/23/2020, patient seen eval examined during the rounds labs reviewed medic ations reviewed, patient is sitting upright in chair breathing definitely denies any chest pain or shortness of denies any cough or sputum production she is feeling good strength in the extremities, confusion is almost gone, labs are reviewed, today's potassium is 3.9 along sodium is 129 04/22/2020, patient seen eval examined during the rounds sitting upright in chair breathing comfortably off of oxygen, denies any chest pain, sodium is up to 130 this morning, adequate by mouth intake 04/21/2020, patient seen and evaluated examined during the rounds labs reviewed medications reviewed chronic back pain is present which is controlled with tramadol as well as well needed, patient remains in a year, revealing comfortably denies any chest pain sitting upright in chair, chest x-ray chronic changes, sodium stable high 120s, denies any chest pain denies any dizziness or condition continued to improve progressively, his last potassium is up to 4.1 now stable renal functions 04/19/2020, patient seen and evaluated examined during rounds labs reviewed medications reviewed sodium level continued to improve slowly, patient mental status as well as coordination along with generalized weakness continued to improve, labs are reviewed reviewed, patient is bordering [facility] care, now hard of the ICU, white cell count remains stable 2300, platelet count if remains 58,000, sodium is 127, BUN/creatinine stable patient is gradually getting out of the bed and walking to the side chair as well as bathroom with support, denies any chest pain or shortness of breath respiratory status remains stable on room air This is a 75-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, patient presented into the hospital with generalized weakness fatigue, she has history of chronic hypokalemia has been on potassium replacement therapy, she has been feeling lightheaded and dizzy on arrival she was noted to have severe hypokalemia and hyponatremia potassium has been replaced along with 3% saline, which is being discontinued, renal services has been following this patient as well denies any chest pain shortness of breath cough or sputum production, patient has some component of pancytopenia as well with leukopenia and thrombocytopenia hemoglobin stable 12.5, total bilirubin is 2.3, random sodium level in the urine is less than 10 with urine osmole 246 Objective - Vital Signs Vital signs: Vital Signs Temp 98.2 F 04/23/20 12:00 Pulse 94 04/23/20 12:00 Resp 16 04/23/20 12:00 BP 106/61 04/23/20 12:00 Pulse Ox 97 04/23/20 12:00 Intake & Output 04/22/20 04/23/20 04/23/20 18:59 06:59 18:59 Intake Total 960 Output Total 4 200 2 Balance 956 -200 -2 Weight 66.8 kg 67.5 kg Intake: Oral 960 Output: Urine 1 200 Stool 3 2 Other: Voiding Method Bedside Commode Toilet Toilet # Voids 1 - Exam - Constitutional General appearance: average body habitus, cooperative, disheveled - EENT Eyes: anicteric sclerae, EOMI Ears: bilateral: normal - Neck Neck: normal ROM Carotids: bilateral: upstroke normal Thyroid: negative: normal size - Respiratory Respiratory: bilateral: CTA - Cardiovascular Rhythm: regular Heart sounds: normal: S1, S2 - Gastrointestinal General gastrointestinal: decreased bowel sounds, soft - Integumentary Integumentary: normal turgor - Neurologic Neurologic: CNII-XII intact - Musculoskeletal Musculoskeletal: generalized weakness, strength equal bilaterally - Psychiatric Psychiatric: A&O x's 3, appropriate affect, intact judgment & insight - Labs CBC & Chem 7: 04/22/20 06:31 04/23/20 06:38 Labs: Abnormal Lab Results - Last 24 Hours (Table) 04/23/20 Range/Units 06:38 Sodium 129 L (137-145) mmol/L BUN 5 L (7-17) mg/dL Creatinine 0.34 L (0.52-1.04) mg/dL Calcium 8.2 L (8.4-10.2) mg/dL Assessment and Plan Assessment: Severe degree of electrolyte imbalance due to liver disease as well as nutritional impairment Severe hyponatremia Hypokalemia Pancytopenia with leukopenia as well as thrombocytopenia Alcohol-related hepatitis Generalized weakness fatigue likely related to electrolyte imbalance Possible baseline COPD Plan: Continue to monitor sodium very closely Aggressive correction of hypokalemia, avoid development of hypocalcemia PT OT evaluation Increase activity as tolerated Peptic ulcer disease prophylaxis and DVT prophylaxis Further recommendations pending plan of care as per clinical response of the patient Stable pulmonary standpoint for discharge and follow-up in outpatient basis Time with Patient: Greater than 30
== END 2020-04-23 15:18 | disposition home or self-care (01) | DRG 640 ==
LOC: 1SOBS 14:19 → OBSVTOIN 14:19 → 2SICU 22:36 → 3SCARD 04-21 00:44
PROVIDERS: ADMIT Family Medicine; ATTEND Family Medicine
DX: E87.1 Hypo-osmolality and hyponatremia (principal); G93.41 Metabolic encephalopathy; N17.0 Acute kidney failure with tubular necrosis; E44.0 Moderate protein-calorie malnutrition; I50.32 Chronic diastolic (congestive) heart failure; D61.818 Other pancytopenia; D69.59 Other secondary thrombocytopenia; K70.30 Alcoholic cirrhosis of liver without ascites; J44.9 Chronic obstructive pulmonary disease, unspecified; K70.10 Alcoholic hepatitis without ascites; R27.0 Ataxia, unspecified; E83.42 Hypomagnesemia; G89.29 Other chronic pain; M54.9 Dorsalgia, unspecified; F10.10 Alcohol abuse, uncomplicated; E87.6 Hypokalemia; E86.1 Hypovolemia; E78.5 Hyperlipidemia, unspecified; H26.9 Unspecified cataract; E86.0 Dehydration; T50.2X5A Adverse effect of carbonic-anhydrase inhibitors, benzothiadiazides and other diuretics, initial encounter; E66.9 Obesity, unspecified; Z68.28 Body mass index [BMI] 28.0-28.9, adult; Z79.899 Other long term (current) drug therapy; Z87.19 Personal history of other diseases of the digestive system; Z87.440 Personal history of urinary (tract) infections; Z90.49 Acquired absence of other specified parts of digestive tract; Z98.890 Other specified postprocedural states; Z88.6 Allergy status to analgesic agent; Z88.8 Allergy status to other drugs, medicaments and biological substances; Z82.5 Family history of asthma and other chronic lower respiratory diseases; Z80.0 Family history of malignant neoplasm of digestive organs
CPT/HCPCS: 71045; 80048; 80053; 81001; 82140; 83036; 83605; 83735; 83880; 83935; 84132; 84295; 84300; 84484; 85025; 85379; 87086; 93005

== ENCOUNTER 2020-04-24 16:55 | Observation (INO) | payer MEDICARE ==
[2020-04-24] MEDS ORDERED: SODIUM CHLORIDE 0.9% 1,000 ML IV STA (17:20)
--- NOTE | 2020-04-24 17:24 | ED ---
General Adult HPI - General Chief complaint: Recheck/Abnormal Lab/Rx Stated complaint: Med refill Time Seen by Provider: 04/24/20 17:05 Source: patient, RN notes reviewed, old records reviewed (Patient was asked in the hospital for hyponatremia and hypomagnesemia) Mode of arrival: ambulatory Limitations: no limitations - History of Present Illness Initial comments: Patient is a pleasant 75-year-old female presenting to the emergency department because she cannot get her medications filled. Patient states she was just in the hospital and discharged yesterday. Patient took her prescriptions to [facility] however they cannot get her prescriptions until Sunday may be Sunday. Patient believes she had a low potassium level and may be something else. Patient states she is feeling fine at this time and has no complaints. Patient did call her doctor who recommended she come back to the hospital to get her medications here until they can be filled through the pharmacy. - Related Data Home Medications Medication Instructions Recorded Confirmed ALPRAZolam [Xanax] 0.25 - 0.5 mg PO DAILY PRN 08/05/19 04/16/20 traMADol HCL 50 mg PO DAILY PRN 04/16/20 04/16/20 Previous Rx's Medication Instructions Recorded Lidocaine 5% Patch [Lidoderm 5% 1 patch TOPICAL DAILY@1800 #5 patch 04/23/20 Patch] Magnesium Oxide [Mag-Ox] 400 mg PO DAILY #30 tab 04/23/20 Sodium Chloride Tab 1 gm PO TID #90 tab 04/23/20 Allergies Allergy/AdvReac Type Severity Reaction Status Date / Time diphenhydramine HCl Allergy OVER Verified 04/24/20 17:08 [From Benadryl] SEDATED Review of Systems ROS Statement: Those systems with pertinent positive or pertinent negative responses have been documented in the HPI. ROS Other: All systems not noted in ROS Statement are negative. Constitutional: Denies: fever Eyes: Denies: eye pain ENT: Denies: ear pain Respiratory: Denies: cough Cardiovascular: Denies: chest pain Endocrine: Denies: fatigue Gastrointestinal: Denies: abdominal pain, vomiting Genitourinary: Denies: dysuria Musculoskeletal: Denies: back pain Skin: Denies: rash Neurological: Denies: weakness Past Medical History Past Medical History: Hyperlipidemia, Liver Disease Additional Past Medical History / Comment(s): Pt recently admitted to [facility] on 03/25/20 with acute abdominal pain with ileus with bilateral inguinal hernia rep air/ventral hernia/leukopenia/thrombocytopenia/hyponatremia/elevated bilirubin/chronic liver disease d/t ETOH, acute UTI. Other hx: Post recent bilateral inguinal hernia repair pt developed increased abdominal distention and lasix was increased for this reason, cataract in one eye (laterallity unknown), varicosity R leg, low platelets. History of Any Multi-Drug Resistant Organisms: None Reported Past Surgical History: Cholecystectomy, Orthopedic Surgery Additional Past Surgical History / Comment(s): Bilaeral inguinal hernia repairs, L knee arthroscopic surgery, nasal cauterization for epistaxis, colonoscopy. Past Anesthesia/Blood Transfusion Reactions: No Reported Reaction Past Psychological History: Anxiety, Panic Disorder Smoking Status: Never smoker - Past Family History Mother Family Medical History: Asthma Father Family Medical History: Cancer Additional Family Medical History / Comment(s): stomach cancer General Exam Limitations: no limitations General appearance: alert, in no apparent distress Head exam: Present: normocephalic Eye exam: Present: normal appearance, PERRL Neck exam: Present: normal inspection Respiratory exam: Present: normal lung sounds bilaterally Cardiovascular Exam: Present: regular rate, normal rhythm, normal heart sounds GI/Abdominal exam: Present: soft. Absent: tenderness Extremities exam: Present: normal inspection Neurological exam: Present: alert, oriented X3. Absent: motor sensory deficit Psychiatric exam: Present: normal affect, normal mood Skin exam: Present: normal color Course Vital Signs 04/24/20 17:03 Temperature 100 F H Pulse Rate 98 Respiratory 18 Rate Blood Pressure 135/69 O2 Sat by Pulse 97 Oximetry EKG Findings - EKG Comments: EKG Findings:: Normal sinus rhythm and 92. OK 180. QRS 78. QT 356. QTc 440. Normal axis. Normal QRS. No acute ST change Medical Decision Making - Medical Decision Making Case discussed in detail with Dr. Lentz, who is aware of this patient and will admit. Patient is updated. - Lab Data Result diagrams: 04/24/20 17:40 04/24/20 17:40 Lab Results 04/24/20 04/24/20 Range/Units 17:40 17:40 WBC 2.7 L (3.8-10.6) k/uL RBC 3.72 L (3.80-5.40) m/uL Hgb 11.6 (11.4-16.0) gm/dL Hct 34.3 (34.0-46.0) % MCV 92.2 (80.0-100.0) fL MCH 31.2 (25.0-35.0) pg MCHC 33.8 (31.0-37.0) g/dL RDW 13.9 (11.5-15.5) % Plt Count 80 L (150-450) k/uL Neutrophils % 61 % Lymphocytes % 22 % Monocytes % 11 % Eosinophils % 3 % Basophils % 0 % Neutrophils # 1.6 (1.3-7.7) k/uL Lymphocytes # 0.6 L (1.0-4.8) k/uL Monocytes # 0.3 (0-1.0) k/uL Eosinophils # 0.1 (0-0.7) k/uL Basophils # 0.0 (0-0.2) k/uL Sodium 129 L (137-145) mmol/L Potassium 3.9 (3.5-5.1) mmol/L Chloride 98 (98-107) mmol/L Carbon Dioxide 27 (22-30) mmol/L Anion Gap 4 mmol/L BUN 6 L (7-17) mg/dL Creatinine 0.38 L (0.52-1.04) mg/dL Est GFR (CKD-EPI)AfAm >90 (>60 ml/min/1.73 sqM) Est GFR (CKD-EPI)NonAf >90 (>60 ml/min/1.73 sqM) Glucose 116 H (74-99) mg/dL Calcium 8.5 (8.4-10.2) mg/dL Magnesium 1.6 (1.6-2.3) mg/dL Total Bilirubin 0.8 (0.2-1.3) mg/dL AST 40 H (14-36) U/L ALT 15 (4-34) U/L Alkaline Phosphatase 173 H (38-126) U/L Total Protein 6.5 (6.3-8.2) g/dL Albumin 2.9 L (3.5-5.0) g/dL Disposition Clinical Impression: Hyponatremia Disposition: ADMITTED IP TO THIS HOSP Is patient prescribed a controlled substance at d/c from ED?: No Referrals: Yvon Lentz MD [Primary Care Provider] - 1-2 days Decision Time: 18:24
[2020-04-24 18:00] LABS: Basophils % (A) 0 %; Eosinophils # (A) 0.1 k/uL (0-0.7); Eosinophils % (A) 3 %; HCT 34.3 % (34.0-46.0); HGB 11.6 gm/dL (11.4-16.0); Lymphocytes # (A) 0.6 k/uL (1.0-4.8); Lymphocytes % (A) 22 %; MCH 31.2 pg (25.0-35.0); MCHC 33.8 g/dL (31.0-37.0); MCV 92.2 fL (80.0-100.0); Mean Platelet Volume 7.8; Monocytes # (A) 0.3 k/uL (0-1.0); Monocytes % (A) 11 %; Neutrophils # (A) 1.6 k/uL (1.3-7.7); Neutrophils % (A) 61 %; RBC 3.72 m/uL (3.80-5.40); RDW 13.9 % (11.5-15.5); WBC 2.7 k/uL (3.8-10.6)
[2020-04-24 18:02] LABS: Platelet Count 80 k/uL (150-450)
[2020-04-24 18:09] LABS: ALT 15 U/L (4-34); AST 40 U/L (14-36); African American GFR (CKD) >90 (>60 ml/min/1.73 sqM); Albumin 2.9 g/dL (3.5-5.0); Alkaline Phosphatase 173 U/L (38-126); Anion Gap 4 mmol/L; Blood Urea Nitrogen 6 mg/dL (7-17); Calcium 8.5 mg/dL (8.4-10.2); Carbon Dioxide 27 mmol/L (22-30); Chloride 98 mmol/L (98-107); Glucose 116 mg/dL (74-99); Magnesium 1.6 mg/dL (1.6-2.3); Non-African American GFR(CKD) >90 (>60 ml/min/1.73 sqM); Potassium 3.9 mmol/L (3.5-5.1); Sodium 129 mmol/L (137-145); Total Bilirubin 0.8 mg/dL (0.2-1.3); Total Protein 6.5 g/dL (6.3-8.2)
[2020-04-24] MEDS ORDERED: NALOXONE 0.4 MG/ML 1 ML VIAL IV PRN (18:24)
[2020-04-24] MEDS: SODIUM CHLORIDE 0.9% 1,000 ML IV SCH (18:39)
[2020-04-24 19:32] LABS: Appearance,Urine Clear (Clear); Bacteria,Urine Rare /hpf; Bilirubin,Urine Negative (Negative); Blood,Urine Small (Negative); Color,Urine Yellow; Glucose,Urine (UA) Negative (Negative); Ketones,Urine Negative (Negative); Leukocyte Esterase,Urine Small (Negative); Nitrite,Urine Negative (Negative); Protein,Urine Negative (Negative); RBC,Urine 3 /hpf (0-5); Specific Gravity,Urine 1.007 (1.001-1.035); Squamous Epithelial Cell,Urine <1 /hpf (0-4); WBC,Urine 7 /hpf (0-5)
[2020-04-25 06:21] LABS: African American GFR (CKD) >90 (>60 ml/min/1.73 sqM); Anion Gap 6 mmol/L; Blood Urea Nitrogen 4 mg/dL (7-17); Calcium 8.4 mg/dL (8.4-10.2); Carbon Dioxide 27 mmol/L (22-30); Chloride 100 mmol/L (98-107); Glucose 90 mg/dL (74-99); Magnesium 1.6 mg/dL (1.6-2.3); Non-African American GFR(CKD) >90 (>60 ml/min/1.73 sqM); Potassium 3.9 mmol/L (3.5-5.1); Sodium 133 mmol/L (137-145)
[2020-04-25] MEDS ORDERED: ALPRAZolam 0.5 MG TAB PO PRN (06:37)
[2020-04-25] MEDS ORDERED: traMADol 50 MG TAB PO PRN ×2 (06:37→19:58)
[2020-04-25] MEDS: SODIUM CHLORIDE TAB 1 GM TAB PO SCH ×3 (07:47→22:07)
[2020-04-25] MEDS: MAGNESIUM OXIDE 400 MG TAB PO SCH (07:47)
[2020-04-25] MEDS: SODIUM CHLORIDE 0.9% 1,000 ML IV SCH ×2 (07:51→22:07)
--- NOTE | 2020-04-25 14:36 | HP ---
HISTORY AND PHYSICAL 75-year-old white female came to emergency room due to not being able to get her medication filled. She feels weak, fatigued, near-syncope. She cannot get her scripts filled for 2 to 3 days. She thought she had low potassium and weakness and fatigue. Family wanted her admitted. Home medicines include Xanax, tramadol, sodium chloride tablets, lidocaine patches, Mag oxide 400 daily, sodium chloride tablets 1 mg q.i.d. ALLERGIES: BENADRYL. REVIEW OF SYSTEMS: Fourteen-point review of systems negative except for mentioned in HPI. PAST MEDICAL HISTORY: Dyslipidemia, liver disease, alcoholic cirrhosis, severe hyponatremia, malnutrition, ventral hernias, bilateral inguinal hernia repair, carpal tunnel repair, thrombocytopenia, leukopenia, chronic liver disease. SURGICAL HISTORY: Cholecystectomy, orthopedic surgery, bilateral inguinal hernia repair, left knee arthroscopy surgery, nasal catheterization epistaxis, colonoscopy. PAST FAMILY MEDICAL HISTORY: Mother with asthma. Father cancer of the stomach. PHYSICAL EXAMINATION: She looks weak, fatigued. Cardiovascular S1-S2. Lungs clear. GI is soft. Hematology negative Homans. Psych: Fair mood and affect., NEUROLOGIC: Alert and oriented x3. WBC 2.7, hemoglobin 11.0. Sodium 129, potassium 3.9. ASSESSMENT: 1. Near syncope. 2. Dehydration. 3. Hyponatremia. 4. Hyperkalemia. Rehydrate. Wait until medications are able to be filled. PT/OT. Replace electrolytes. SHARMAINE / LAYTON: [id number] /
[2020-04-25] MEDS ORDERED: LIDOCAINE 5% PATCH TOPICAL SCH (18:00)
[2020-04-26 08:01] VITALS: RESP 16
[2020-04-26] MEDS: MAGNESIUM OXIDE 400 MG TAB PO SCH (08:32)
[2020-04-26] MEDS: SODIUM CHLORIDE TAB 1 GM TAB PO SCH ×2 (08:32→17:18)
[2020-04-26] MEDS: SODIUM CHLORIDE 0.9% 1,000 ML IV SCH (08:33)
[2020-04-26 13:11] VITALS: BMI 27.9
[2020-04-26 15:39] VITALS: BP 146/85; PULSE 77; TEMP 98.7
--- NOTE | 2020-04-26 15:59 | P.DS ---
Providers Date of admission: 04/24/20 18:24 Expected date of discharge: 04/26/20 Attending physician: Yvon Lentz Primary care physician: Yvon Lentz [facility] Course: Near-syncope Dehydration Hyponatremia Hypokalemia Hospital course a 75-year-old male with multiple medical issues. Received gentle IV fluid hydration with significant clinical improvement. Patient will be discharged home today pending PT/OT evaluation, recommendations, assistance with. Resources to assist her with outpatient prescriptions. Please refer to H&P for specifics details. The impression and plan of care has been dictated as directed. : I performed a history and examination of this patient, discussed the same with the dictator. I agree with the dictator's note ,documented as a scribe. Any additional findings or plans will be noted. Patient Condition at Discharge: Stable Plan - Discharge Summary Discharge Rx Participant: No New Discharge Prescriptions: Continue ALPRAZolam [Xanax] 0.25 - 0.5 mg PO DAILY PRN PRN Reason: Anxiety traMADol HCL 50 mg PO DAILY PRN PRN Reason: Pain Lidocaine 5% Patch [Lidoderm 5% Patch] 1 patch TOPICAL DAILY@1800 #5 patch Magnesium Oxide [Mag-Ox] 400 mg PO DAILY #30 tab Sodium Chloride Tab 1 gm PO TID #90 tab Discharge Medication List ALPRAZolam [Xanax] 0.25 - 0.5 mg PO DAILY PRN 08/05/19 [History] traMADol HCL 50 mg PO DAILY PRN 04/16/20 [History] Lidocaine 5% Patch [Lidoderm 5% Patch] 1 patch TOPICAL DAILY@1800 #5 patch 04/23/20 [Rx] Magnesium Oxide [Mag-Ox] 400 mg PO DAILY #30 tab 04/23/20 [Rx] Sodium Chloride Tab 1 gm PO TID #90 tab 04/23/20 [Rx] Follow up Appointment(s)/Referral(s): Yvon Lentz MD [Primary Care Provider] - 3 Days Activity/Diet/Wound Care/Special Instructions: Pending PT/OT evaluation,/assistance with community resources available to assist with obtaining RXs
== END 2020-04-26 17:35 | disposition home or self-care (01) ==
LOC: EC 16:55 → 1SOBS 18:24
PROVIDERS: ADMIT Family Medicine; ATTEND Family Medicine
DX: E87.1 Hypo-osmolality and hyponatremia (principal); E86.0 Dehydration; R55 Syncope and collapse; E83.42 Hypomagnesemia; E87.6 Hypokalemia; E78.5 Hyperlipidemia, unspecified; K70.30 Alcoholic cirrhosis of liver without ascites; D72.819 Decreased white blood cell count, unspecified; D69.6 Thrombocytopenia, unspecified; Z03.818 Encounter for observation for suspected exposure to other biological agents ruled out; K43.9 Ventral hernia without obstruction or gangrene; E46 Unspecified protein-calorie malnutrition; F41.0 Panic disorder [episodic paroxysmal anxiety]; F41.9 Anxiety disorder, unspecified; H26.9 Unspecified cataract; I83.91 Asymptomatic varicose veins of right lower extremity; Z98.890 Other specified postprocedural states; Z79.891 Long term (current) use of opiate analgesic; Z79.899 Other long term (current) drug therapy; Z88.8 Allergy status to other drugs, medicaments and biological substances; Z87.440 Personal history of urinary (tract) infections; Z87.19 Personal history of other diseases of the digestive system; Z90.49 Acquired absence of other specified parts of digestive tract; Z82.5 Family history of asthma and other chronic lower respiratory diseases; Z80.0 Family history of malignant neoplasm of digestive organs
CPT/HCPCS: 96360; 96361 ×2; 99285; 36415; 93005; 97161; 80053; 80048; 83735 ×2; 85025; 81001; G0378 ×3; U0003

== ENCOUNTER 2020-05-13 23:32 | Emergency (ER) | payer MEDICARE ==
[2020-05-13 23:40] VITALS: PULSE 66; RESP 16; TEMP 97.6
--- NOTE | 2020-05-13 23:47 | ED ---
Fall HPI - General Chief Complaint: Fall Stated Complaint: Fall Time Seen by Provider: 05/13/20 23:37 Source: patient, EMS Mode of arrival: EMS Limitations: altered mental status (Appears intoxicated) - History of Present Illness Initial Comments: This patient is 75-year-old woman brought by ambulance to be evaluated after she had a ground-level fall in her kitchen at home. The patient does not recall the episode at home. She did not recall why she was in the hospital. She denies any complaints other than the fact that she stated that the lumbar board that she was on was hurting her back. She does have chronic low back pain and states that it feels identical today. She is denying any pain or other injury. She does recognize that she is in the hospital. MD Complaint: fall -: minutes(s) Fall From: standing When Fall Occurred: just prior to arrival Place Fall Occurred: home Loss of Consciousness: unsure Prolonged Down Time?: unclear Symptoms Prior to Fall: none Context: alcohol use Associated Symptoms: denies - Related Data Home Medications Medication Instructions Recorded Confirmed ALPRAZolam [Xanax] 0.25 - 0.5 mg PO DAILY PRN 08/05/19 04/24/20 traMADol HCL 50 mg PO DAILY PRN 04/16/20 04/24/20 Previous Rx's Medication Instructions Recorded Lidocaine 5% Patch [Lidoderm 5% 1 patch TOPICAL DAILY@1800 #5 patch 04/23/20 Patch] Magnesium Oxide [Mag-Ox] 400 mg PO DAILY #30 tab 04/23/20 Sodium Chloride Tab 1 gm PO TID #90 tab 04/23/20 Allergies Allergy/AdvReac Type Severity Reaction Status Date / Time diphenhydramine HCl Allergy OVER Verified 05/13/20 23:40 [From Benadryl] SEDATED Review of Systems ROS Statement: Those systems with pertinent positive or pertinent negative responses have been documented in the HPI. ROS Other: All systems not noted in ROS Statement are negative. Limitations: ROS unobtainable due to patients medical condition (Appears intoxicated) Eyes: Denies: vision change Respiratory: Reports: cough, dyspnea Cardiovascular: Denies: chest pain, palpitations Gastrointestinal: Denies: abdominal pain, vomiting, diarrhea Musculoskeletal: Reports: as per HPI, back pain Neurological: Denies: headache, weakness Past Medical History Past Medical History: Hyperlipidemia, Liver Disease Additional Past Medical History / Comment(s): Pt recently admitted to [facility] on 03/25/20 with acute abdominal pain with ileus with bilateral inguinal hernia repair/ventral hernia/leukopenia/thrombocytopenia/hyponatremia/elevated bilirubin/chronic liver disease d/t ETOH, acute UTI. Other hx: Post recent bilateral inguinal hernia repair pt developed increased abdominal distention and lasix was increased for this reason, cataract in one eye (laterallity unknown), varicosity R leg, low platelets. History of Any Multi-Drug Resistant Organisms: None Reported Past Surgical History: Cholecystectomy, Orthopedic Surgery Additional Past Surgical History / Comment(s): Bilaeral inguinal hernia repairs, L knee arthroscopic surgery, nasal cauterization for epistaxis, colonoscopy. Past Anesthesia/Blood Transfusion Reactions: No Reported Reaction Past Psychological History: Anxiety, Panic Disorder Smoking Status: Never smoker Past Alcohol Use History: Daily, Heavy Past Drug Use History: None Reported - Past Family History Mother Family Medical History: Asthma Father Family Medical History: Cancer Additional Family Medical History / Comment(s): stomach cancer General Exam Limitations: physical limitation General appearance: alert, in no apparent distress, appears intoxicated Head exam: Present: atraumatic, normocephalic, normal inspection Eye exam: Present: normal appearance, EOMI, nystagmus. Absent: scleral icterus, conjunctival injection ENT exam: Present: normal oropharynx Neck exam: Present: other (Patient is in cervical collar on arrival). Absent: tenderness Respiratory exam: Present: normal lung sounds bilaterally. Absent: respiratory distress, wheezes, rales, rhonchi, stridor, chest wall tenderness, accessory muscle use Cardiovascular Exam: Present: regular rate, normal rhythm, normal heart sounds. Absent: systolic murmur, diastolic murmur, rubs, gallop GI/Abdominal exam: Present: soft. Absent: distended, tenderness, guarding, rebound, rigid, mass Extremities exam: Present: normal inspection, normal capillary refill. Absent: tenderness, pedal edema, calf tenderness Back exam: Present: normal inspection, paraspinal tenderness. Absent: CVA tenderness (R), CVA tenderness (L), vertebral tenderness Neurological exam: Present: alert, CN II-XII intact, other (Very mild ataxia and mild dysarthria consistent with alcohol intoxication). Absent: oriented X3 (The patient not able to recall exact date, is oriented to person and place), motor sensory deficit Skin exam: Present: warm, dry, intact, normal color. Absent: rash Course Vital Signs 05/13/20 05/14/20 23:34 01:12 Temperature 97.6 F 97.6 F Pulse Rate 66 66 Respiratory 16 16 Rate Blood Pressure 157/72 132/75 O2 Sat by Pulse 98 98 Oximetry - Reevaluation(s) Reevaluation #1: 05/14/20 00:34 I received a call from the radiologist regarding patient's CT scan of the brain revealing hemorrhage. I discussed the finding with patient and with patient's son who was at home, his name Thanh Hart ([phone]), and he does agree with transfer to [facility] for neurosurgery consultation. Medical Decision Making - Medical Decision Making This patient is 75-year-old lady brought by ambulance to be evaluated after she was found on the floor apparently having ground-level fall in the kitchen. The patient was without complaints other than of her chronic low back pain on arrival. She is appearing intoxicated on the exam and is sent for CT of the brain which does reveal what appears to be 1 x 2 cm hyperdense area consistent with right posterior frontal hemorrhage. Case is discussed with Dr. Guo who will accept transfer at [facility] for patient to be seen by neurosurgery. - Lab Data Result diagrams: 05/13/20 23:57 05/13/20 23:57 Lab Results 05/13/20 05/13/20 05/13/20 Range/Units 23:57 23:57 23:57 WBC 2.7 L (3.8-10.6) k/uL RBC 3.77 L (3.80-5.40) m/uL Hgb 12.0 (11.4-16.0) gm/dL Hct 35.1 (34.0-46.0) % MCV 93.0 (80.0-100.0) fL MCH 31.8 (25.0-35.0) pg MCHC 34.2 (31.0-37.0) g/dL RDW 13.7 (11.5-15.5) % Plt Count 100 L (150-450) k/uL Neutrophils % 49 % Lymphocytes % 41 % Monocytes % 6 % Eosinophils % 3 % Basophils % 0 % Neutrophils # 1.3 (1.3-7.7) k/uL Lymphocytes # 1.1 (1.0-4.8) k/uL Monocytes # 0.2 (0-1.0) k/uL Eosinophils # 0.1 (0-0.7) k/uL Basophils # 0.0 (0-0.2) k/uL Sodium 132 L (137-145) mmol/L Potassium 3.8 (3.5-5.1) mmol/L Chloride 98 (98-107) mmol/L Carbon Dioxide 27 (22-30) mmol/L Anion Gap 7 mmol/L BUN 2 L (7-17) mg/dL Creatinine 0.40 L (0.52-1.04) mg/dL Est GFR (CKD-EPI)AfAm >90 (>60 ml/min/1.73 sqM) Est GFR (CKD-EPI)NonAf >90 (>60 ml/min/1.73 sqM) Glucose 98 (74-99) mg/dL Calcium 8.8 (8.4-10.2) mg/dL CK-MB (CK-2) 0.9 (0.0-2.4) ng/mL Troponin I <0.012 (0.000-0.034) ng/mL Serum Alcohol 196 mg/dL - EKG Data -: EKG Interpreted by Dc EKG shows normal: sinus rhythm, axis (Normal), intervals (PA interval 244 ms, pr olonged consistent with first-degree AV block. QRS duration 90 ms, QTC 483 ms, both are normal), QRS complexes (Normal), ST-T waves (Normal) Rate: normal (Rate 74 bpm) Critical Care Time Critical Care Time: Yes (40 minutes) Disposition Clinical Impression: Fall, Alcohol intoxication, Cerebral hemorrhage following injury Disposition: OTHER INSTITUTION NOT DEFINED Condition: Serious Is patient prescribed a controlled substance at d/c from ED?: No Referrals: Yvon Lentz MD [Primary Care Provider] - 1-2 days - Out of Hospital Transfer - Req. Specs Out of Hospital Transfer - Requested Specifics: Other Emergency Center ([facility])
[2020-05-14 00:04] LABS: Basophils % (A) 0 %; Eosinophils # (A) 0.1 k/uL (0-0.7); Eosinophils % (A) 3 %; HCT 35.1 % (34.0-46.0); Lymphocytes # (A) 1.1 k/uL (1.0-4.8); Lymphocytes % (A) 41 %; MCH 31.8 pg (25.0-35.0); MCHC 34.2 g/dL (31.0-37.0); Mean Platelet Volume 7.3; Monocytes # (A) 0.2 k/uL (0-1.0); Monocytes % (A) 6 %; Neutrophils # (A) 1.3 k/uL (1.3-7.7); Neutrophils % (A) 49 %; Platelet Count 100 k/uL (150-450); RBC 3.77 m/uL (3.80-5.40); RDW 13.7 % (11.5-15.5); WBC 2.7 k/uL (3.8-10.6)
[2020-05-14 00:17] LABS: African American GFR (CKD) >90 (>60 ml/min/1.73 sqM); Anion Gap 7 mmol/L; Blood Urea Nitrogen 2 mg/dL (7-17); Calcium 8.8 mg/dL (8.4-10.2); Carbon Dioxide 27 mmol/L (22-30); Chloride 98 mmol/L (98-107); Glucose 98 mg/dL (74-99); Non-African American GFR(CKD) >90 (>60 ml/min/1.73 sqM); Potassium 3.8 mmol/L (3.5-5.1); Sodium 132 mmol/L (137-145)
--- NOTE | 2020-05-14 00:22 | CT ---
EXAMINATION TYPE: CT brain cspine wo con DATE OF EXAM: 05/14/2020 COMPARISON: 10/27/2019 HISTORY: Fall CT DLP: 1399.8 mGycm Automated exposure control for dose reduction was used. There is 2 x 1 cm area of increased attenuation in the parenchyma of the right posterior frontal lobe consistent with acute parenchymal hemorrhage. There is no mass effect nor midline shift. There is ce rebral cortical atrophy. There are two 7 mm foci of increased cortical density in the right parietal lobe convexity. The calvarium is intact. The skull base is intact. There is fairly normal aeration of the mastoid sinuses. There is hypodensity right occipital lobe white matter unchanged. Cervical vertebra show normal spacing and alignment. Posterior elements are intact. Facet joints are intact. There is no evidence of cervical spine fracture. There are mild fibrotic changes at the lung apices. IMPRESSION: Acute small parenchymal hemorrhages in the right posterior frontal lobe and right parietal lobe as ab ove. Cerebral atrophy. There is evidence for some mild chronic small vessel ischemia right occipital lobe unchanged. Negative CT scan cervical spine. No fracture. Exam was discussed with Dr. Mancera at 12:30 AM.
[2020-05-14 00:31] LABS: Alcohol 196 mg/dL
[2020-05-14 00:38] LABS: Creatine Kinase MB 0.9 ng/mL (0.0-2.4); Troponin I <0.012 ng/mL (0.000-0.034)
--- NOTE | 2020-05-14 01:05 | XR ---
EXAMINATION TYPE: XR pelvis AP view DATE OF EXAM: 05/14/2020 COMPARISON: 08/05/2019 HISTORY: Fall. Pain. TECHNIQUE: Renal view FINDINGS: The pelvic ring appears intact. Proximal femurs and hip joints are intact. Acetabula appear intact. Sacroiliac joints are intact. IMPRESSION: No acute abnormality of the pelvis.
--- NOTE | 2020-05-14 01:06 | XR ---
EXAMINATION TYPE: XR chest 1V portable DATE OF EXAM: 05/14/2020 COMPARISON: 04/16/2020 HISTORY: Fall. Chest pain. TECHNIQUE: FINDINGS: There is no heart failure nor confluent pneumonic infiltrate. Costophrenic angles are clear . There are no hilar masses. Bony thorax is intact. There is no evidence of a rib fracture. IMPRESSION: No active cardiopulmonary disease. No change.
[2020-05-14 01:13] VITALS: BP 132/75
== END 2020-05-14 01:14 | disposition other institution (70) ==
LOC: EC 23:32
DX: S06.309A Unspecified focal traumatic brain injury with loss of consciousness of unspecified duration, initial encounter (principal); F10.129 Alcohol abuse with intoxication, unspecified; F41.0 Panic disorder [episodic paroxysmal anxiety]; Z88.8 Allergy status to other drugs, medicaments and biological substances; W18.30XA Fall on same level, unspecified, initial encounter; Y92.000 Kitchen of unspecified non-institutional (private) residence as the place of occurrence of the external cause
CPT/HCPCS: 36415; 93005; 80048; 82553; 84484; 85025; 72170; 71045; 72125; 70450; 99291; G0480; 80320

== ENCOUNTER 2023-05-24 12:16 | Inpatient (IN) | payer MEDICARE ==
--- NOTE | 2023-05-24 12:52 | ED ---
Weakness HPI - General Chief complaint: Weakness Stated complaint: Fall Source: EMS Mode of arrival: EMS - History of Present Illness Initial comments: 78-year-old female with past medical history of liver disease secondary to alcohol abuse who presents to the emergency department from home due to increas ed weakness. Son called EMS because he was worried that the patient was having failure to thrive. The patient has been crawling along the floor in order to move herself from room to room. When EMS got to her she was covered in feces and the house was in deplorable conditions. They say that the carpets were saturated in feces. They could see him malone on the wall where the patient had dragged herself along the carpet to move from room to room. Patient found to have bruising to her right scapula with skin tear to the right elbow. She denies falling. Patient does not want to be here be evaluated. Her legal guardian is her son who wants the patient placed due to failure to thrive. The patient denies any pain. Is unaware of how she got her bruising. HPI is limited as the patient is a very poor historian - Related Data Home Medications Medication Instructions Recorded Confirmed Furosemide [Lasix] 20 mg PO BID 12/05/22 05/24/23 Multivitamin Powder 1 dose PO DAILY 12/05/22 05/24/23 Spironolactone [Aldactone] 50 mg PO BID 12/05/22 05/24/23 Previous Rx's Medication Instructions Recorded Magnesium Oxide [Mag-Ox] 400 mg PO DAILY #30 tab 04/23/20 Sodium Chloride Tab 1 gm PO TID #90 tab 04/23/20 Folic Acid 1 mg PO DAILY 90 Days #90 tab 12/13/22 Potassium Chloride ER [K-Dur 20] 40 meq PO DAILY 90 Days #90 tab 12/13/22 Allergies Allergy/AdvReac Type Severity Reaction Status Date / Time diphenhydramine HCl AdvReac Over Verified 05/24/23 14:46 [From Benadryl] sedated Review of Systems ROS Statement: Those systems with pertinent positive or pertinent negative responses have been documented in the HPI. ROS Other: All systems not noted in ROS Statement are negative. Past Medical History Past Medical History: Hyperlipidemia, Liver Disease Additional Past Medical History / Comment(s): Pt recently admitted to [facility] on 03/25/20 with acute abdominal pain with ileus with bilateral inguinal hernia repair/ventral hernia/leukopenia/thrombocytopenia/hyponatremia/elevated bilirubin/chronic liver disease d/t ETOH, acute UTI. Other hx: Post recent bilateral inguinal hernia repair pt developed increased abdominal distention and lasix was increased for this reason, cataract in one eye (laterallity unknown), varicosity R leg, low platelets. History of Any Multi-Drug Resistant Organisms: None Reported Past Surgical History: Cholecystectomy, Orthopedic Surgery Additional Past Surgical History / Comment(s): Bilaeral inguinal hernia repairs, L knee arthroscopic surgery, nasal cauterization for epistaxis, colonoscopy. Past Anesthesia/Blood Transfusion Reactions: No Reported Reaction Past Psychological History: Anxiety, Panic Disorder Smoking Status: Never smoker Past Alcohol Use History: Daily, Heavy Past Drug Use History: None Reported - Past Family History Mother Family Medical History: Asthma Father Family Medical History: Cancer Additional Family Medical History / Comment(s): stomach cancer General Exam Limitations: altered mental status (Poor historian) General appearance: alert, in no apparent distress Head exam: Present: atraumatic, normocephalic, normal inspection Eye exam: Present: normal appearance, PERRL, EOMI. Absent: scleral icterus, conjunctival injection, periorbital swelling ENT exam: Present: normal exam, mucous membranes dry Neck exam: Present: normal inspection. Absent: tenderness, meningismus, lymphadenopathy Respiratory exam: Present: normal lung sounds bilaterally. Absent: respiratory distress, wheezes, rales, rhonchi, stridor Cardiovascular Exam: Present: regular rate, normal rhythm, normal heart sounds. Absent: systolic murmur, diastolic murmur, rubs, gallop, clicks GI/Abdominal exam: Present: soft, normal bowel sounds. Absent: distended, tenderness, guarding, rebound, rigid Rectal exam: Present: other (Patient has two stage II sacral wounds measuring 3 x 2 cm each) Extremities exam: Present: full ROM, normal capillary refill, other (Ecchymosis to right posterior shoulder and scapula. Skin tear right elbow). Absent: pedal edema, joint swelling, calf tenderness Back exam: Present: normal inspection Neurological exam: Present: alert, CN II-XII intact Psychiatric exam: Present: normal mood, flat affect Skin exam: Present: warm, dry, intact, normal color. Absent: rash Course Vital Signs 05/24/23 05/24/2305/24/23 12:24 14:41 15:16 Temperature 97.5 F L 97.6 F Pulse Rate 80 75 86 Respiratory 18 17 20 Rate Blood Pressure 107/42 132/54 124/54 O2 Sat by Pulse 99 99 98 Oximetry 05/24/23 05/24/23 05/24/23 16:08 17:27 18:01 Temperature 97.7 F Pulse Rate 75 84 75 Respiratory 17 18 17 Rate Blood Pressure 123/52 116/55 117/46 O2 Sat by Pulse 97 99 98 Oximetry Medical Decision Making - Medical Decision Making Was pt. sent in by a medical professional or institution (, PA, MYCOLOGIST, urgent care, hospital, or usp...) When possible be specific @ -No Did you speak to anyone other than the patient for history (EMS, parent, family, police, friend...)? What history was obtained from this source @ -EMS Did you review nursing and triage notes (agree or disagree)? Why? @ -I reviewed and agree with nursing and triage notes Were old charts reviewed (outside hosp., previous admission, EMS record, old EKG, old radiological studies, urgent care reports/EKG's, usp records)? Report findings @ -I reviewed patient's discharge summary from November of this year. Patient was refusing ECF at that time Differential Diagnosis (chest pain, altered mental status, abdominal pain women, abdominal pain men, vaginal bleeding, weakness, fever, dyspnea, syncope, headache, dizziness, GI bleed, back pain, seizure, CVA, palpatations, mental health, musculoskeletal)? @ -Differential Weakness: Hypoglycemia, shock, sepsis, hyponatremia, anemia, infection, CT, ETOH, adverse medicine reaction, overdose, stroke, this is not meant to be an all-inclusive list. EKG interpreted by me (3pts min.). @ -Yes and demonstrates sinus rhythm with a rate of 81. AK interval 205. QRS 83. QTC of 446. No acute ST segment elevations or depressions. Some PACs X-rays interpreted by me (1pt min.). @ -Yes and patient has no acute injuries CT interpreted by me (1pt min.). @ -Yes and patient has no acute intracranial process therefore she can be heparinized U/S interpreted by me (1pt. min.). @ -None done What testing was considered but not performed or refused? (CT, X-rays, U/S, labs)? Why? @ -None What meds were considered but not given or refused? Why? @ -None Did you discuss the management of the patient with other professionals (professionals i.e. , PA, MYCOLOGIST, lab, RT, psych nurse, foster care social worker, professor/nurse anesthetist, teacher, fare enforcement officer, piano case and bench assembler)? Give summary @ -Spoke with Dr. Lentz who will admit the patient Was smoking cessation discussed for >3mins.? @ -No Was critical care preformed (if so, how long)? @ -No Were there social determinants of health that impacted care today? How? (Homelessness, low income, unemployed, alcoholism, drug addiction, transpo rtation, low edu. Level, literacy, decrease access to med. care, nursing home, rehab)? @ -Alcoholism and therefore patient cannot care for herself Was there de-escalation of care discussed even if they declined (Discuss DNR or withdrawal of care, Hospice)? DNR status @ -No What co-morbidities impacted this encounter? (DM, HTN, Smoking, COPD, CAD, Cancer, CVA, ARF, Chemo, Hep., AIDS, mental health diagnosis, sleep apnea, morbid obesity)? @ -Alcohol abuse, liver disease Was patient admitted / discharged? Hospital course, mention meds given and route, prescriptions, significant lab abnormalities, going to OR and other pertinent info. @ -Upon arrival patient was placed into room 27. A thorough history and physical exam was performed. Patient is covered in stool. She has notable bruising over her right scapula with a skin tear in the right elbow. To continuous pulse ox and cardiac monitoring. Laboratory studies are conducted. Lactic acid is 3.4. Sodium 129. Platelets 127. Troponin is 0.646. Creatinine kinase is 1054. BNP 1320. Alcohol is nondetected. I spoke with the patient she states that she did have some chest pain yesterday. Because of this the patient does go for CT of her head due to her multiple external signs of trauma. CT is read as negative and therefore the patient was heparinized. Recommended admission. Spoke with Dr. Lentz who will admit the patient. PT, OT and cardiology will be placed on consult. Patient awaiting a bed on the floor in stable condition Undiagnosed new problem with uncertain prognosis? @ -Yes Drug Therapy requiring intensive monitoring for toxicity (Heparin, Nitro, Insulin, Cardizem)? @ -Heparin Were any procedures done? @ -No Diagnosis/symptom? @ -Inability to ambulate, alcoholic liver disease, lactic acidosis, NSTEMI Acute, or Chronic, or Acute on Chronic? @ -Acute Uncomplicated (without systemic symptoms) or Complicated (systemic symptoms)? @ -Complicated Side effects of treatment? @ -No Exacerbation, Progression, or Severe Exacerbation? @ -No Poses a threat to life or bodily function? How? (Chest pain, USA, CT, pneumonia, PE, COPD, DKA, ARF, appy, cholecystitis, CVA, Diverticulitis, Homicidal, Suicidal, threat to staff... and all critical care pts) @ -No - Lab Data Result diagrams: 05/24/23 14:15 05/24/23 14:15 Lab Results 05/24/23 05/24/23 05/24/23 Range/Units 12:35 13:48 14:15 WBC (3.8-10.6) k/uL RBC (3.80-5.40) m/uL Hgb (11.4-16.0) gm/dL Hct (34.0-46.0) % MCV (80.0-100.0) fL MCH (25.0-35.0) pg MCHC (31.0-37.0) g/dL RDW (11.5-15.5) % Plt Count (150-450) k/uL MPV Neutrophils % % Lymphocytes % % Monocytes % % Eosinophils % % Basophils % % Neutrophils # (1.3-7.7) k/uL Lymphocytes # (1.0-4.8) k/uL Monocytes # (0-1.0) k/uL Eosinophils # (0-0.7) k/uL Basophils # (0-0.2) k/uL PT 13.0 H (9.0-12.0) sec INR 1.3 H (<1.2) APTT 25.4 (22.0-30.0) sec Sodium (137-145) mmol/L Potassium (3.5-5.1) mmol/L Chloride (98-107) mmol/L Carbon Dioxide (22-30) mmol/L Anion Gap mmol/L BUN (7-17) mg/dL Creatinine (0.52-1.04) mg/dL Est GFR (CKD-EPI)AfAm (>60 ml/min/1.73 sqM) Est GFR (CKD-EPI)NonAf (>60 ml/min/1.73 sqM) Glucose (74-99) mg/dL Lactic Ac Sepsis Rflx Y Plasma Lactic Acid Kaz 3.4 H* (0.7-2.0) mmol/L Calcium (8.4-10.2) mg/dL Magnesium (1.6-2.3) mg/dL Total Bilirubin (0.2-1.3) mg/dL AST (14-36) U/L ALT (4-34) U/L Alkaline Phosphatase (38-126) U/L Ammonia 41 H (<30) umol/L Creatine Kinase (30-135) U/L Troponin I (0.000-0.034) ng/mL NT-Pro-B Natriuret Pep pg/mL Total Protein (6.3-8.2) g/dL Albumin (3.5-5.0) g/dL TSH (0.465-4.680) mIU/L Serum Alcohol mg/dL 05/24/23 05/24/23 05/24/23 Range/Units 14:15 14:15 14:15 WBC 8.5 (3.8-10.6) k/uL RBC 4.14 (3.80-5.40) m/uL Hgb 12.9 (11.4-16.0) gm/dL Hct 38.0 (34.0-46.0) % MCV 91.7 (80.0-100.0) fL MCH 31.3 (25.0-35.0) pg MCHC 34.1 (31.0-37.0) g/dL RDW 15.8 H (11.5-15.5) % Plt Count 127 L (150-450) k/uL MPV 8.1 Neutrophils % 84 % Lymphocytes % 7 % Monocytes % 6 % Eosinophils % 1 % Basophils % 0 % Neutrophils # 7.2 (1.3-7.7) k/uL Lymphocytes # 0.6 L (1.0-4.8) k/uL Monocytes # 0.6 (0-1.0) k/uL Eosinophils # 0.1 (0-0.7) k/uL Basophils # 0.0 (0-0.2) k/uL PT (9.0-12.0) sec INR (<1.2) APTT (22.0-30.0) sec Sodium 129 L (137-145) mmol/L Potassium 4.1 (3.5-5.1) mmol/L Chloride 98 (98-107) mmol/L Carbon Dioxide 23 (22-30) mmol/L Anion Gap 8 mmol/L BUN 15 (7-17) mg/dL Creatinine 0.74 (0.52-1.04) mg/dL Est GFR (CKD-EPI)AfAm 89 (>60 ml/min/1.73 sqM) Est GFR (CKD-EPI)NonAf 77 (>60 ml/min/1.73 sqM) Glucose 139 H (74-99) mg/dL Lactic Ac Sepsis Rflx Plasma Lactic Acid Kaz (0.7-2.0) mmol/L Calcium 8.6 (8.4-10.2) mg/dL Magnesium 1.9 (1.6-2.3) mg/dL Total Bilirubin 4.2 H (0.2-1.3) mg/dL AST 350 H (14-36) U/L ALT 55 H (4-34) U/L Alkaline Phosphatase 119 (38-126) U/L Ammonia (<30) umol/L Creatine Kinase (30-135) U/L Troponin I 0.646 H* (0.000-0.034) ng/mL NT-Pro-B Natriuret Pep 1320 pg/mL Total Protein 7.1 (6.3-8.2) g/dL Albumin 2.9 L (3.5-5.0) g/dL TSH 3.340 (0.465-4.680) mIU/L Serum Alcohol <10 mg/dL Disposition Clinical Impression: Alcoholic liver disease, Bilateral lower leg cellulitis, NSTEMI (non-ST elevated myocardial infarction), Hyponatremia, Lactic acid acidosis Disposition: ADMITTED IP TO THIS [facility] Condition: Serious Is patient prescribed a controlled substance at d/c from ED?: No Time of Disposition: 15:00 Decision to Admit Reason: Admit from EC Decision Date: 05/24/23 Decision Time: 15:00
[2023-05-24 13:47] LABS: Lactic Acid, Venous 3.4 mmol/L (0.7-2.0)
--- NOTE | 2023-05-24 14:17 | XR ---
EXAMINATION TYPE: XR chest 2V, XR pelvis AP view DATE OF EXAM: 05/24/2023 COMPARISON: 05/14/2020 HISTORY: 78-year-old female with weakness FINDINGS: Chest: Heart borderline in size. Aorta and pulmonary vasculature within normal limits. No consolidati on or pleural effusion. Pelvis: There is mild degenerative spurring and mild axial joint space narrowing at both hips. The S I joints appear symmetric and intact as does the pubic symphysis. No acute fracture, subluxation, or dislocation is seen. IMPRESSION: 1. Chest: No acute cardiopulmonary process. 2. Pelvis: Mild degenerative change at both hips. No acute osseous abnormality seen.
[2023-05-24] MEDS ORDERED: THIAMINE 100 MG/ML 2 ML VIAL IM STA (14:26)
[2023-05-24] MEDS ORDERED: LORazepam 2 MG/ML INJ IV PRN ×3 (14:26)
[2023-05-24] MEDS ORDERED: SODIUM CHLORIDE 0.9% 1,000 ML IV ONE (14:26)
[2023-05-24 14:27] LABS: Basophils % (A) 0 %; Eosinophils # (A) 0.1 k/uL (0-0.7); Eosinophils % (A) 1 %; HGB 12.9 gm/dL (11.4-16.0); Lymphocytes # (A) 0.6 k/uL (1.0-4.8); Lymphocytes % (A) 7 %; MCH 31.3 pg (25.0-35.0); MCHC 34.1 g/dL (31.0-37.0); MCV 91.7 fL (80.0-100.0); Mean Platelet Volume 8.1; Monocytes # (A) 0.6 k/uL (0-1.0); Monocytes % (A) 6 %; Neutrophils # (A) 7.2 k/uL (1.3-7.7); Neutrophils % (A) 84 %; Platelet Count 127 k/uL (150-450); RBC 4.14 m/uL (3.80-5.40); RDW 15.8 % (11.5-15.5); WBC 8.5 k/uL (3.8-10.6)
[2023-05-24 14:40] LABS: Potassium 4.1 mmol/L (3.5-5.1)
[2023-05-24 14:41] LABS: ALT 55 U/L (4-34); AST 350 U/L (14-36); African American GFR (CKD) 89 (>60 ml/min/1.73 sqM); Albumin 2.9 g/dL (3.5-5.0); Alcohol <10 mg/dL; Alkaline Phosphatase 119 U/L (38-126); Anion Gap 8 mmol/L; Blood Urea Nitrogen 15 mg/dL (7-17); Calcium 8.6 mg/dL (8.4-10.2); Carbon Dioxide 23 mmol/L (22-30); Chloride 98 mmol/L (98-107); Glucose 139 mg/dL (74-99); Magnesium 1.9 mg/dL (1.6-2.3); Non-African American GFR(CKD) 77 (>60 ml/min/1.73 sqM); Sodium 129 mmol/L (137-145); Total Bilirubin 4.2 mg/dL (0.2-1.3); Total Protein 7.1 g/dL (6.3-8.2)
[2023-05-24 14:46] LABS: INR 1.3 (<1.2); Partial Thromboplastin Time 25.4 sec (22.0-30.0)
[2023-05-24 14:49] LABS: NT-Pro-B-Type Natriuretic Pept 1320 pg/mL
[2023-05-24] MEDS ORDERED: NALOXONE 0.4 MG/ML 1 ML VIAL IV PRN (15:02)
[2023-05-24] MEDS ORDERED: ONDANSETRON 4 MG/2 ML VIAL IVP PRN (15:02)
[2023-05-24] MEDS: SODIUM CHLORIDE 0.9% 1,000 ML IV SCH ×2 (15:12→23:07)
[2023-05-24] MEDS ORDERED: ASPIRIN 81 MG PO STA (15:19)
--- NOTE | 2023-05-24 16:35 | CT ---
EXAMINATION TYPE: CT brain cspine wo con CT DLP: 1394.5 mGycm, Automated exposure control for dose reduction was used. DATE OF EXAM: 05/24/2023 4:25 PM COMPARISON: 12/07/2022 CLINICAL INDICATION:Female, 78 years old with history of signs of polytrauma, need to heparinize; Rickie [place]. TECHNIQUE: Brain: Multiple axial CT images of the brain were obtained without IV contrast. Cspine: Axial CT images from the skull base to the inferior aspect of T2 we obtained without intraven ous contrast. Coronal and sagittal reformatted images were also reviewed. FINDINGS: Brain: Extra-axial spaces: No abnormal extra-axial fluid collections. Similar posterior right calcified lesi on likely representing calcified meningioma. Ventricular system: Dilatation in proportion to cerebral atrophy. Cerebral parenchyma: No acute intraparenchymal hemorrhage or mass effect. The powell-white junction is well differentiated. Scattered hypoattenuating areas are seen within the white matter. Cerebellum: Unremarkable. Mass effect: No evidence of midline shift. Intracranial vasculature: Atherosclerotic calcifications of the intracranial vessels. Soft tissues: Normal. Calvarium/osseous structures: No depressed skull fracture. Periodontal disease with erosion of multip le mandible teeth Paranasal sinuses and mastoid air cells: Clear. Visualized orbits: Orbital contents are intact. Cervical spine: Fracture: None. Osseous structures: Multilevel degenerative disc disease changes with endplate spurring and disc oste ophyte complex's. Vertebral alignment: Within normal limits. Spinal canal/Neural Foramina: No evidence of significant spinal canal narrowing. No evidence for sign ificant neural foraminal stenosis. Neck soft tissues: Prevertebral soft tissues are within normal limits. Other: The airway is patent. The lung apices are clear. IMPRESSION: 1. No acute intracranial process. 2. No evidence of cervical spine fracture. 3. Mild multilevel degenerative disc disease. 4. Nonspecific white matter changes and cerebral atrophy.
[2023-05-24] MEDS ORDERED: HEPARIN SODIUM 1,000 UN/ML (10ML VL) IV ONE (16:37)
[2023-05-24] MEDS ORDERED: HEPARIN SODIUM 1,000 UN/ML (10ML VL) IV PRN (16:37)
[2023-05-24] MEDS ORDERED: HEPARIN SOD,PORK IN 0.45% NACL 25,000 UNIT in 0.45% NACL 1 250ML.BAG IV SCH (16:45)
[2023-05-24 21:00] LABS: Creatine Kinase 5466 U/L (30-135)
[2023-05-24 21:35] LABS: Bacteria,Urine Moderate /hpf; Mucus,Urine Rare /hpf; RBC,Urine 2 /hpf (0-5); Squamous Epithelial Cell,Urine 2 /hpf (0-4); WBC,Urine >182 /hpf (0-5)
[2023-05-24 21:46] LABS: Color,Urine Yellow
[2023-05-24 21:47] LABS: Appearance,Urine Slightly Cloudy (Clear); Bilirubin,Urine Negative (Negative); Blood,Urine Large (Negative); Glucose,Urine (UA) Negative (Negative); Ketones,Urine Negative (Negative); Leukocyte Esterase,Urine Large (Negative); Nitrite,Urine Positive (Negative); Protein,Urine 1+ (Negative); Specific Gravity,Urine 1.025 (1.001-1.035); Urobilinogen,Urine <2.0 mg/dL (<2.0)
[2023-05-24] MEDS: SODIUM CHLORIDE TAB 1 GM TAB PO SCH (22:04)
[2023-05-25 01:43] LABS: Partial Thromboplastin Time >200.0 sec (22.0-30.0)
[2023-05-25] MEDS: SODIUM CHLORIDE 0.9% 1,000 ML IV SCH ×2 (06:49→17:59)
[2023-05-25] MEDS: FOLIC ACID 1 MG TAB PO SCH (09:33)
[2023-05-25] MEDS: THIAMINE 100 MG TAB PO SCH (09:33)
[2023-05-25] MEDS: SODIUM CHLORIDE TAB 1 GM TAB PO SCH ×3 (09:33→20:12)
[2023-05-25] MEDS: POTASSIUM CHLORIDE ER 20 MEQ TAB.ER PO SCH (09:33)
[2023-05-25] MEDS: MAGNESIUM OXIDE 400 MG TAB PO SCH (09:33)
--- NOTE | 2023-05-25 11:22 | P.CRDCN ---
History of Present Illness History of present illness: HISTORY OF PRESENT ILLNESS: This is a 78 year old female with a past medical history significant for liver disease, anxiety, and former alcohol abuse. 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 We have been asked to see the patient in consultation for abnormal troponins. Patient examined at the bedside. Apparently, the patients son called EMS and had the patient brought to the hospital because the patient was very weak at home and was unable to walk. She apparently was found on the floor with feces around her. The patient denies any chest pain or pressure. She denies shortness of breath. She denies any dizziness or lightheadedness. Patient's vital signs are stable. * EKG reveals sinus mechanism with PACs. No signs of acute ischemia. * Chest xray no acute cardiopulmonary process. * Laboratory data: WBC 8.5. Hemoglobin 12.9. Platelet count 127. Sodium 129. Potassium 4.1. BUN 15. Creatinine 0.74. Creatinine kinase 5466. Repeat 2858. Troponin 0.646. 0.326. 0.371 * Current home cardiac medications include Lasix 20 mg twice a day and Aldactone 50 mg twice a day REVIEW OF SYSTEMS: At the time of my exam: CONSTITUTIONAL: Denies fever or chills. HEENT: Denies blurred vision, vision changes, or eye pain. Denies hemoptysis CARDIOVASCULAR: Denies chest pain. Denies orthopnea. Denies PND. Denies palpitations RESPIRATORY: Denies shortness of breath. GASTROINTESTINAL: Denies abdominal pain. Denies nausea or vomiting. HEMATOLOGIC: Denies bleeding disorders. GENITOURINARY: Denies any blood in urine. SKIN: Denies pruitis. Denies rash. PHYSICAL EXAM: VITAL SIGNS: Reviewed. GENERAL: Well-developed in no acute distress. HEENT: Head is normocephalic. Pupils are equal, round. Sclerae anicteric. Mucous membranes of the mouth are moist. Neck supple. No JVD or thyromegaly LUNGS: Respirations even and unlabored. Lungs essentially clear to auscultation bilaterally. HEART: Regular rate and rhythm. S1 and S2 heard. Systolic murmur noted ABDOMEN: Soft. Nondistended. Nontender. EXTREMITIES: Normal range of motion. No clubbing or cyanosis. Peripheral pulses intact. 1-2+ bilateral lower extremity edema with erythema noted NEUROLOGIC: Awake and alert. Oriented x 1. ASSESSMENT: Generalized weakness Inability to ambulate Rhabdomyolysis Elevated troponins, not suggestive of ACS, likely secondary to above Elevated lactic acid Possible bilateral lower extremity cellulitis History of alcohol abuse Elevated LFT's PLAN: An acute coronary event has been ruled out Discontinue IV heparin. Begin subcu heparin. Resume oral Lasix Obtain 2D echo to assess cardiac structure and function Further recommendations pending patient course Nurse practitioner note has been reviewed by physician. Signing provider agrees with the documented findings, assessment, and plan of care. Past Medical History Past Medical History: Hyperlipidemia, Liver Disease Additional Past Medical History / Comment(s): Pt recently admitted to [facility] on 03/25/20 with acute abdominal pain with ileus with bilateral inguinal hernia repair/ventral hernia/leukopenia/thrombocytopenia/hyponatremia/elevated bilirubin/chronic liver disease d/t ETOH, acute UTI. Other hx: Post recent b ilateral inguinal hernia repair pt developed increased abdominal distention and lasix was increased for this reason, cataract in one eye (laterallity unknown), varicosity R leg, low platelets. History of Any Multi-Drug Resistant Organisms: None Reported Past Surgical History: Cholecystectomy, Orthopedic Surgery Additional Past Surgical History / Comment(s): Bilaeral inguinal hernia repairs, L knee arthroscopic surgery, nasal cauterization for epistaxis, colonoscopy. Past Anesthesia/Blood Transfusion Reactions: No Reported Reaction Past Psychological History: Anxiety, Panic Disorder Smoking Status: Never smoker Past Alcohol Use History: Daily, Heavy Past Drug Use History: None Reported - Past Family History Mother Family Medical History: Asthma Father Family Medical History: Cancer Additional Family Medical History / Comment(s): stomach cancer Medications and Allergies Home Medications Medication Instructions Recorded Confirmed Type Magnesium Oxide [Mag-Ox] 400 mg PO DAILY #30 tab 04/23/20 05/24/23 Rx Sodium Chloride Tab 1 gm PO TID #90 tab 04/23/20 05/24/23 Rx Furosemide [Lasix] 20 mg PO BID 12/05/22 05/24/23 History Multivitamin Powder 1 dose PO DAILY 12/05/22 05/24/23 History Spironolactone [Aldactone] 50 mg PO BID 12/05/22 05/24/23 History Folic Acid 1 mg PO DAILY 90 Days #90 tab 12/13/22 05/24/23 Rx Potassium Chloride ER [K-Dur 20] 40 meq PO DAILY 90 Days #90 tab 12/13/22 05/24/23 Rx Allergies Allergy/AdvReac Type Severity Reaction Status Date / Time diphenhydramine HCl AdvReac Over Verified 05/24/23 14:46 [From Benadryl] sedated Physical Exam Vitals: Vital Signs Temp Pulse Pulse Resp BP BP Pulse Ox 05/25/23 00:00 98 F 72 110/64 05/24/23 23:54 80 18 103/76 96 05/24/23 23:10 97.7 F 81 18 130/91 94 L 05/24/23 22:08 97.7 F 81 20 117/59 99 05/24/23 20:28 97.8 F 75 18 122/52 99 05/24/23 18:01 75 17 117/46 98 05/24/23 17:27 97.7 F 84 18 116/55 99 05/24/23 16:08 75 17 123/52 97 05/24/23 15:16 86 20 124/54 98 05/24/23 14:41 97.6 F 75 17 132/54 99 05/24/23 12:24 97.5 F L 80 18 107/42 99 Intake and Output 05/24/23 05/25/23 05/25/23 22:59 06:59 14:59 Intake Total 60.818 Balance 60.818 Intake: Intake, IV Titration 60.818 Amount Heparin Sod,Pork in 0.45% 60.818 NaCl 25,000 unit In 0.45 % NaCl 1 250ml.bag @ 12 UNITS/KG/HR 8.709 mls/hr IV .Q24H [facility] Rx#: [id number] Other: Voiding Method Incontinent # Voids 1 Results 05/24/23 14:15 05/24/23 14:15 Cardiac Enzymes 05/24/23 05/24/23 05/24/23 Range/Units 14:15 14:15 21:00 AST 350 H (14-36) U/L Troponin I 0.646 H* 0.326 H* (0.000-0.034) ng/mL 05/24/23 Range/Units 23:59 AST (14-36) U/L Troponin I 0.371 H* (0.000-0.034) ng/mL Coagulation 05/24/23 05/24/23 Range/Units 14:15 22:24 PT 13.0 H (9.0-12.0) sec APTT 25.4 >200.0 H* (22.0-30.0) sec CBC 05/24/23 Range/Units 14:15 WBC 8.5 (3.8-10.6) k/uL RBC 4.14 (3.80-5.40) m/uL Hgb 12.9 (11.4-16.0) gm/dL Hct 38.0 (34.0-46.0) % Plt Count 127 L (150-450) k/uL Comprehensive Metabolic Panel 05/24/23 Range/Units 14:15 Sodium 129 L (137-145) mmol/L Potassium 4.1 (3.5-5.1) mmol/L Chloride 98 (98-107) mmol/L Carbon Dioxide 23 (22-30) mmol/L BUN 15 (7-17) mg/dL Creatinine 0.74 (0.52-1.04) mg/dL Glucose 139 H (74-99) mg/dL Calcium 8.6 (8.4-10.2) mg/dL AST 350 H (14-36) U/L ALT 55 H (4-34) U/L Alkaline Phosphatase 119 (38-126) U/L Total Protein 7.1 (6.3-8.2) g/dL Albumin 2.9 L (3.5-5.0) g/dL Current Medications Generic Name Dose Route Start Last Admin Trade Name Freq PRN Reason Stop Dose Admin Folic Acid 1 mg 05/25/23 09:00 Folic Acid 1 Mg Tab PO DAILY [facility] Heparin Sodium (Porcine) 0 unit 05/24/23 16:37 Heparin Sodium 1,000 Un/Ml (10ml Vl) IV PER PROTOCOL PRN Low PTT Protocol Sodium Chloride 1,000 mls @ 130 mls/hr 05/24/23 15:00 05/25/23 06:49 Saline 0.9% IV 130 mls/hr .Q7H42M [facility]E Administration Heparin Sodium/Sodium Chloride 250 mls @ 8.709 mls/hr 05/24/23 16:45 05/25/23 00:14 25,000 unit/ Sodium Chloride IV 0 units/kg/hr .Q24H [facility]E 0 mls/hr Titration Protocol 12 UNITS/KG/HR Lorazepam 1 mg 05/24/23 14:26 Lorazepam 2 Mg/Ml Inj IV Q1HR PRN CIWA 10 to 15 Lorazepam 2 mg 05/24/23 14:26 Lorazepam 2 Mg/Ml Inj IV 05/26/23 14:26 Q10M PRN CIWA 16 or higher Lorazepam 1 mg 05/24/23 14:26 Lorazepam 1 Mg Tab PO Q1HR PRN Alcohol Withdrawal Lorazepam 1 mg 05/24/23 14:26 05/24/23 22:05 Lorazepam 2 Mg/Ml Inj IV 1 mg Q2HR PRN Administration CIWA 8 or 9 Magnesium Oxide 400 mg 05/25/23 09:00 Magnesium Oxide 400 Mg Tab PO DAILY [facility] Naloxone HCl 0.2 mg 05/24/23 15:02 Naloxone 0.4 Mg/Ml 1 Ml Vial IV Q2M PRN Opioid Reversal Ondansetron HCl 4 mg 05/24/23 15:02 Ondansetron 4 Mg/2 Ml Vial IVP Q8HR PRN Nausea And Vomiting Potassium Chloride 40 meq 05/25/23 09:00 Potassium Chloride Er 20 Meq Tab.Er PO DAILY [facility] Sodium Chloride 1 gm 05/24/23 22:00 05/24/23 22:04 Sodium Chloride Tab 1 Gm Tab PO 1 gm TID [facility]AS[facility]E Administration Thiamine HCl 100 mg 05/25/23 09:00 Thiamine 100 Mg Tab PO DAILY KASSIE Intake and Output 05/24/23 05/25/23 05/25/23 22:59 06:59 14:59 Intake Total 60.818 Balance 60.818 Intake: Intake, IV Titration 60.818 Amount Heparin Sod,Pork in 0.45% 60.818 NaCl 25,000 unit In 0.45 % NaCl 1 250ml.bag @ 12 UNITS/KG/HR 8.709 mls/hr IV .Q24H [facility] Rx#: [id number] Other: Voiding Method Incontinent # Voids 1 05/24/23 14:15 05/24/23 14:15
[2023-05-25 11:59] LABS: Basophils % (A) 0 %; Eosinophils # (A) 0.1 k/uL (0-0.7); Eosinophils % (A) 1 %; HGB 12.1 gm/dL (11.4-16.0); Lymphocytes # (A) 0.8 k/uL (1.0-4.8); Lymphocytes % (A) 11 %; MCH 31.4 pg (25.0-35.0); MCHC 33.7 g/dL (31.0-37.0); MCV 93.1 fL (80.0-100.0); Mean Platelet Volume 7.9; Monocytes # (A) 0.6 k/uL (0-1.0); Monocytes % (A) 8 %; Neutrophils # (A) 5.6 k/uL (1.3-7.7); Neutrophils % (A) 78 %; Platelet Count 102 k/uL (150-450); RBC 3.87 m/uL (3.80-5.40); RDW 15.6 % (11.5-15.5); WBC 7.1 k/uL (3.8-10.6)
[2023-05-25] MEDS: PANTOPRAZOLE 40 MG/10 ML VIAL IVP SCH (12:06)
[2023-05-25] MEDS: MULTIVITAMINS, THERA 1 EACH TAB PO SCH (12:07)
[2023-05-25] MEDS: FUROSEMIDE 20 MG TAB PO SCH ×2 (12:07→17:58)
--- NOTE | 2023-05-25 12:14 | CA ---
Transthoracic Echo Report Name: Zabrina Gilmore Age: 78 Gender: F : 1945 Exam Date: 05/25/2023 07:37 Exam Location: [place] [facility] Ht (in): 61 Wt (lb): 160 Ordering Physician: Yvon Lentz MD Attending/Referring Phys: Shirt Folding Machine Operator Anders Silva Procedure CPT: Indications: dyspnea Cardiac Hx: Technical Quality: Fair Contrast 1: Total Dose (mL): Contrast 2: Total Dose (mL): MEASUREMENTS (Male / Female) Normal Values 2D ECHO LV Diastolic Diameter PLAX 3.8 cm 4.2 - 5.9 / 3.9 - 5.3 cm LV Systolic Diameter PLAX 2.2 cm IVS Diastolic Thickness 1.1 cm 0.6 - 1.0 / 0.6 - 0.9 cm LVPW Diastolic Thickness 1.1 cm 0.6 - 1.0 / 0.6 - 0.9 cm LV Relative Wall Thickness 0.6 RV Internal Dim ED PLAX 3.1 cm LVOT Diameter 2.0 cm Aortic Root Diameter 2.7 cm LA Systolic Diameter LX 2.7 cm 3.0 - 4.0 / 2.7 - 3.8 cm LV Diastolic Volume MOD BP 46.7 cm??? 67 - 155 / 56 - 104 cm??? LV Systolic Volume MOD BP 12.5 cm??? - 58 / 19 - 49 cm??? LV Ejection Fraction MOD BP 73.2 % >= 55 % LV Cardiac Index MOD BP 1542.8 cm???/min???m??? LV Diastolic Volume MOD 4C 56.4 cm??? LV Systolic Volume MOD 4C 13.5 cm??? LV Ejection Fraction MOD 4C 76.0 % LV Cardiac Index MOD 4C 1935.2 cm???/min???m??? LV Diastolic Length 4C 6.9 cm LV Systolic Length 4C 5.3 cm LV Diastolic Volume MOD 2C 33.8 cm??? LV Systolic Volume MOD 2C 11.1 cm??? LV Ejection Fraction MOD 2C 67.2 % LV Cardiac Index MOD 2C 1025.3 cm???/min???m??? LV Diastolic Length 2C 6.0 cm LV Systolic Length 2C 4.8 cm LA Volume 38.8 cm??? 18 - 58 / 22 - 52 cm??? Ascending Aorta Diameter 3.0 cm DOPPLER AV Peak Velocity 160.5 cm/s AV Peak Gradient 10.3 mmHg LVOT Peak Velocity 160.8 cm/s LVOT Peak Gradient 10.3 mmHg AV Area Cont Eq pk 3.2 cm??? MV Peak Velocity 154.5 cm/s MV Peak Gradient 9.5 mmHg MV Mean Velocity 71.2 cm/s MV Mean Gradient 2.6 mmHg MV Velocity Time Integral 51.8 cm MR Peak Velocity 511.1 cm/s MR Peak Gradient 104.5 mmHg Mitral E Point Velocity 88.9 cm/s Mitral A Point Velocity 141.8 cm/s Mitral E to A Ratio 0.6 MV Deceleration Time 296.0 ms MV E' Velocity 6.0 cm/s Mitral E to MV E' Ratio 14.8 TR Peak Velocity 234.4 cm/s TR Peak Gradient 22.0 mmHg Right Ventricular Systolic Press 27.1 mmHg PV Peak Velocity 118.9 cm/s PV Peak Gradient 5.7 mmHg FINDINGS Left Ventricle Normal LV size and wall thickness. Left ventricular ejection fraction is estimated at 55-60 %.normal left ventricular wall motion. Right Ventricle Normal right ventricular size. RVSP= 30mmhg. Right Atrium Normal right atrial size. Left Atrium Normal left atrial size. LA Volume index= 23ml/m2 Mitral Valve Moderate posterior MAC. Mild MR. Aortic Valve Trileaflet aortic valve. aortic valve sclerosis. Mild aortic regurgitation. Tricuspid Valve Tricuspid valve not well visualized. Mild TR. Pulmonic Valve Pulmonic valve not well visualized. No pulmonic regurgitation. Pericardium Normal pericardium. Aorta Normal size aortic root and proximal ascending aorta. CONCLUSIONS 1. Normal left ventricular size and systolic function 2. Mild mitral and aortic regurgitation 3. Mild tricuspid regurgitation with no evidence of pulmonary hypertension. Previewed by: Dr. Samson Corado MD (Electronically Signed) Final Date: 25 May 2023 12:13
--- NOTE | 2023-05-25 12:22 | HP ---
HISTORY AND PHYSICAL CHIEF COMPLAINT: Weakness and change in mental status. HISTORY OF PRESENT ILLNESS: This is an 78-year-old woman with a past medical history of multiple medical problems including EtOH, chronic liver disease, was found to be crawling on the rooms and confused, and the patient was brought to the hospital by her son and the patient was found to have elevated troponin indicating acute kpj-FV-gugftsa-elevation myocardial infarction with troponin 0.646 and CK is also elevated at 5466 indicating acute rhabdomyolysis. Currently, the patient unable to give a coherent history. Most of the history taken by discussion with staff and review of the chart. PAST MEDICAL HISTORY: Chronic liver disease, history of EtOH. Rest of the history and rest of the chart is also reviewed. HOME MEDICATIONS: Aldactone, the dose and rest of medications noted. ALLERGIES: Benadryl. FAMILY HISTORY: Could not be taken. SOCIAL HISTORY: Could not be taken. REVIEW OF SYSTEMS: Could not be taken. PHYSICAL EXAMINATION: VITAL SIGNS: Pulse is 77, blood pressure 110/65, respirations 18. HEENT: Conjunctivae normal. NECK: No JVD. CARDIOVASCULAR: S1, S2. RESPIRATIONS: A few scattered rhonchi. ABDOMEN: Soft, nontender. LEGS: No edema. NERVOUS SYSTEM: Diffusely weak. SKIN: No ulcer, rash, or bleeding. JOINTS: No active deforming arthropathy. LABORATORY DATA: Reviewed. Chest x-ray reviewed. ASSESSMENT: 1. Change in mental status, acute metabolic encephalopathy, rule out hepatic encephalopathy. 2. 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 3. Troponin 0.646, possible acute nuy-VB-nfwuzfu-elevation myocardial infarction. 4. Acute rhabdomyolysis. 5. Gait dysfunction. 6. Acute hepatitis, rule out alcoholic hepatitis. 7. History of hyperlipidemia. RECOMMENDATIONS: This is an 78-year-old woman, who was present with multiple complex medical issues, we will monitor the patient closely. I would recommend ammonia estimation. Otherwise, repeat labs. Follow closely with Cardiology regarding the elevated troponin. IV fluids. CT of the head showed no acute processes and further recommendations to follow. PT/OT evaluation, possible ECF rehab. Discussed with staff and Dr. Lentz will follow on Sunday. MMODL / IJN: [id number] /
[2023-05-25 12:26] LABS: ALT 48 U/L (4-34); AST 255 U/L (14-36); African American GFR (CKD) 83 (>60 ml/min/1.73 sqM); Albumin 2.6 g/dL (3.5-5.0); Alkaline Phosphatase 84 U/L (38-126); Anion Gap 7 mmol/L; Blood Urea Nitrogen 18 mg/dL (7-17); Calcium 8.1 mg/dL (8.4-10.2); Carbon Dioxide 20 mmol/L (22-30); Chloride 105 mmol/L (98-107); Glucose 100 mg/dL (74-99); Non-African American GFR(CKD) 72 (>60 ml/min/1.73 sqM); Potassium 4.5 mmol/L (3.5-5.1); Sodium 132 mmol/L (137-145); Total Bilirubin 2.9 mg/dL (0.2-1.3); Total Protein 6.4 g/dL (6.3-8.2)
[2023-05-25] MEDS: HEPARIN SODIUM,PORCINE/PF 5,000 UNIT/0.5 ML SYRINGE SQ SCH ×2 (17:59→23:08)
[2023-05-26] MEDS: SODIUM CHLORIDE 0.9% 1,000 ML IV SCH ×2 (06:03→18:29)
[2023-05-26 07:56] LABS: Basophils % (A) 0 %; Eosinophils # (A) 0.2 k/uL (0-0.7); Eosinophils % (A) 4 %; HCT 31.5 % (34.0-46.0); HGB 10.5 gm/dL (11.4-16.0); Lymphocytes # (A) 0.5 k/uL (1.0-4.8); Lymphocytes % (A) 14 %; MCH 31.6 pg (25.0-35.0); MCHC 33.3 g/dL (31.0-37.0); MCV 95.1 fL (80.0-100.0); Mean Platelet Volume 7.5; Monocytes # (A) 0.3 k/uL (0-1.0); Monocytes % (A) 8 %; Neutrophils # (A) 2.8 k/uL (1.3-7.7); Neutrophils % (A) 72 %; RBC 3.31 m/uL (3.80-5.40); RDW 15.7 % (11.5-15.5); WBC 3.8 k/uL (3.8-10.6)
[2023-05-26 08:07] LABS: ALT 38 U/L (4-34); AST 206 U/L (14-36); African American GFR (CKD) 83 (>60 ml/min/1.73 sqM); Albumin 2.3 g/dL (3.5-5.0); Alkaline Phosphatase 74 U/L (38-126); Anion Gap 5 mmol/L; Blood Urea Nitrogen 19 mg/dL (7-17); Calcium 7.8 mg/dL (8.4-10.2); Carbon Dioxide 19 mmol/L (22-30); Chloride 107 mmol/L (98-107); Glucose 84 mg/dL (74-99); Non-African American GFR(CKD) 72 (>60 ml/min/1.73 sqM); Potassium 4.3 mmol/L (3.5-5.1); Sodium 131 mmol/L (137-145); Total Protein 5.7 g/dL (6.3-8.2)
[2023-05-26] MEDS: HEPARIN SODIUM,PORCINE/PF 5,000 UNIT/0.5 ML SYRINGE SQ SCH ×2 (09:03→17:37)
[2023-05-26] MEDS: FUROSEMIDE 20 MG TAB PO SCH ×2 (09:08→17:40)
[2023-05-26] MEDS: SODIUM CHLORIDE TAB 1 GM TAB PO SCH ×3 (09:08→21:15)
[2023-05-26] MEDS: POTASSIUM CHLORIDE ER 20 MEQ TAB.ER PO SCH (09:08)
[2023-05-26] MEDS: FOLIC ACID 1 MG TAB PO SCH (09:08)
[2023-05-26] MEDS: MAGNESIUM OXIDE 400 MG TAB PO SCH (09:09)
[2023-05-26] MEDS: THIAMINE 100 MG TAB PO SCH (09:09)
[2023-05-26] MEDS: PANTOPRAZOLE 40 MG/10 ML VIAL IVP SCH (09:09)
[2023-05-26 11:52] LABS: Platelet Count 99 k/uL (150-450); RBC Morphology Normal
[2023-05-26] MEDS: MULTIVITAMINS, THERA 1 EACH TAB PO SCH (13:04)
--- NOTE | 2023-05-26 14:19 | PN ---
PROGRESS NOTE DATE OF SERVICE: 05/26/2023 SUBJECTIVE: This is an 78-year-old woman who was admitted with weakness and acute xjv-RU-nhaaqbv- elevation myocardial infarction, continues to be confused. Cardiology is following the patient 2D echo with Doppler showed normal LV function. OBJECTIVE: VITAL SIGNS: Pulse 75, blood pressure n respirations 16. CHEST: Clear to auscultation. CARDIOVASCULAR: S1 and S2. ABDOMEN: Soft. NERVOUS SYSTEM: Diffusely weak. LABORATORY DATA: Reviewed. ASSESSMENT: 1. Change in mental status, acute metabolic encephalopathy, multifactorial. 2. 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 3. Troponin 0.646. Possible acute jip-CR-tgousxc-elevation myocardial infarction. 4. Acute rhabdomyolysis. 5. Gait dysfunction. 6. Acute hepatitis. 7. History of undetermined etiology. 8. History of hyperlipidemia. RECOMMENDATIONS: Recommend to continue current management, continue symptomatic treatment. I would recommend repeat labs in the morning. Otherwise, closely follow with Cardiology. PT/OT evaluation, possible ECF rehab. LFT seems to be improving. Further recommendations to follow. MMODL / IJN: [id number] / MTDD
[2023-05-26] MEDS: LORazepam 1 MG TAB PO PRN ×2 (17:40→21:15)
--- NOTE | 2023-05-26 22:06 | P.PN ---
Subjective Progress Note Date: 05/26/23 Subjective Echo reviewed, normal LV size and systolic function. LVEF 55%, no major valve pathology REVIEW OF SYSTEMS: At the time of my exam: CONSTITUTIONAL: Denies fever or chills. HEENT: Denies blurred vision, vision changes, or eye pain. Denies hemoptysis CARDIOVASCULAR: Denies chest pain. Denies orthopnea. Denies PND. Denies palpitations RESPIRATORY: Denies shortness of breath. GASTROINTESTINAL: Denies abdominal pain. Denies nausea or vomiting. HEMATOLOGIC: Denies bleeding disorders. GENITOURINARY: Denies any blood in urine. SKIN: Denies pruitis. Denies rash. PHYSICAL EXAM: VITAL SIGNS: Reviewed. GENERAL: Well-developed in no acute distress. HEENT: Head is normocephalic. Pupils are equal, round. Sclerae anicteric. Mucous membranes of the mouth are moist. Neck supple. No JVD or thyromegaly LUNGS: Respirations even and unlabored. Lungs essentially clear to auscultation bilaterally. HEART: Regular rate and rhythm. S1 and S2 heard. Systolic murmur noted ABDOMEN: Soft. Nondistended. Nontender. EXTREMITIES: Normal range of motion. No clubbing or cyanosis. Peripheral pulses intact. 1-2+ bilateral lower extremity edema with erythema noted NEUROLOGIC: Awake and alert. Oriented x 1. ASSESSMENT: Generalized weakness Inability to ambulate Rhabdomyolysis Elevated troponins, not suggestive of ACS, likely secondary to above Elevated lactic acid Possible bilateral lower extremity cellulitis History of alcohol abuse Elevated LFT's PLAN: An acute coronary event has been ruled out Discontinue IV heparin. Begin subcu heparin. Resume oral Lasix Okay to be discharged from cardiac stand point Objective - Vital Signs Vital signs: Vital Signs Temp 97.4 F L 05/26/23 08:00 Pulse 84 05/26/23 16:00 Resp 18 05/26/23 16:00 BP 111/64 05/26/23 16:00 Pulse Ox 96 05/26/23 16:00 FiO2 Intake & Output 05/26/23 05/26/23 05/27/23 06:59 18:59 06:59 Intake Total 236 Output Total 1200 Balance -964 Intake: Oral 236 Output: Urine 1200 Other: Voiding Method Incontinent Incontinent - Labs CBC & Chem 7: 05/26/23 07:24 05/26/23 07:24 Labs: Abnormal Lab Results - Last 24 Hours (Table) 05/26/23 05/26/23 Range/Units 07:24 07:24 RBC 3.31 L (3.80-5.40) m/uL Hgb 10.5 L (11.4-16.0) gm/dL Hct 31.5 L (34.0-46.0) % RDW 15.7 H (11.5-15.5) % Plt Count 99 L (150-450) k/uL Lymphocytes # 0.5 L (1.0-4.8) k/uL Sodium 131 L (137-145) mmol/L Carbon Dioxide 19 L (22-30) mmol/L BUN 19 H (7-17) mg/dL Calcium 7.8 L (8.4-10.2) mg/dL Total Bilirubin 2.0 H (0.2-1.3) mg/dL AST 206 H (14-36) U/L ALT 38 H (4-34) U/L Total Protein 5.7 L (6.3-8.2) g/dL Albumin 2.3 L (3.5-5.0) g/dL Microbiology - Last 24 Hours (Table) 05/24/23 15:31 Blood Culture - Preliminary Blood
[2023-05-27] MEDS: HEPARIN SODIUM,PORCINE/PF 5,000 UNIT/0.5 ML SYRINGE SQ SCH ×3 (01:32→18:51)
[2023-05-27 08:17] LABS: ALT 36 U/L (4-34); AST 141 U/L (14-36); African American GFR (CKD) >90 (>60 ml/min/1.73 sqM); Albumin 2.2 g/dL (3.5-5.0); Alkaline Phosphatase 128 U/L (38-126); Anion Gap 3 mmol/L; Blood Urea Nitrogen 15 mg/dL (7-17); Calcium 7.7 mg/dL (8.4-10.2); Carbon Dioxide 20 mmol/L (22-30); Chloride 107 mmol/L (98-107); Glucose 138 mg/dL (74-99); Non-African American GFR(CKD) 83 (>60 ml/min/1.73 sqM); Potassium 4.3 mmol/L (3.5-5.1); Sodium 130 mmol/L (137-145); Total Bilirubin 1.8 mg/dL (0.2-1.3); Total Protein 5.7 g/dL (6.3-8.2)
[2023-05-27] MEDS: FOLIC ACID 1 MG TAB PO SCH (09:09)
[2023-05-27] MEDS: LORazepam 1 MG TAB PO PRN ×2 (09:10→21:48)
[2023-05-27] MEDS: PANTOPRAZOLE 40 MG/10 ML VIAL IVP SCH (09:10)
[2023-05-27] MEDS: MAGNESIUM OXIDE 400 MG TAB PO SCH (09:10)
[2023-05-27] MEDS: SODIUM CHLORIDE 0.9% 1,000 ML IV SCH ×2 (09:10→21:08)
[2023-05-27] MEDS: SODIUM CHLORIDE TAB 1 GM TAB PO SCH ×3 (09:10→21:11)
[2023-05-27] MEDS: POTASSIUM CHLORIDE ER 20 MEQ TAB.ER PO SCH (09:10)
[2023-05-27] MEDS: FUROSEMIDE 20 MG TAB PO SCH ×2 (09:10→18:51)
[2023-05-27] MEDS: THIAMINE 100 MG TAB PO SCH (09:10)
[2023-05-27 09:41] LABS: Anisocytosis Slight; Basophils % (A) 1 %; Eosinophils # (A) 0.3 k/uL (0-0.7); Eosinophils % (A) 6 %; HCT 30.9 % (34.0-46.0); HGB 10.1 gm/dL (11.4-16.0); Hypochromasia Slight; Lymphocytes # (A) 0.6 k/uL (1.0-4.8); Lymphocytes % (A) 14 %; MCH 31.8 pg (25.0-35.0); MCHC 32.8 g/dL (31.0-37.0); MCV 96.9 fL (80.0-100.0); Monocytes # (A) 0.6 k/uL (0-1.0); Monocytes % (A) 12 %; Neutrophils # (A) 2.9 k/uL (1.3-7.7); Neutrophils % (A) 63 %; Platelet Count 105 k/uL (150-450); RBC 3.19 m/uL (3.80-5.40); RDW 16.1 % (11.5-15.5); WBC 4.6 k/uL (3.8-10.6)
[2023-05-27] MEDS: MULTIVITAMINS, THERA 1 EACH TAB PO SCH (14:11)
--- NOTE | 2023-05-27 14:46 | PN ---
PROGRESS NOTE SUBJECTIVE: An 78-year-old white female, remains on potassium supplementation, GERD precautions, Ativan for anxiety, Lasix for cirrhosis, and cefazolin for leg redness and swelling. The patient says she is improving. LABORATORY DATA: Her hemoglobin is 10.1, down from 12.1. Sodium 130, potassium 4.3, calcium 7.7. Total bilirubin is 1.8, down from 2.9. AST and ALT are down from 255 to 141 and 48 down to 36. Ammonia level is 109. Her . OBJECTIVE: VITAL SIGNS: Temperature 98.4, blood pressure 120s over 70s, O2 of 95% on room air, respiratory rate 16 to 18, pulse 70 to 78. CARDIOVASCULAR: S1, S2. LUNGS: Scattered rhonchi and wheeze. GASTROINTESTINAL: Distended. She has a ventral hernia. HEMATOLOGIC: Negative. EXTREMITIES: 2+ edema with redness in lower extremities. Continue on IV Lasix. Continue on LFT monitoring. Continue on breathing treatments. We will get a surgeon to see if her ventral hernia can be repaired. Subcu heparin. Kefzol for the leg cellulitis. Infectious Disease consult. Continue current treatment. She is alert and oriented x3. Prognosis is guarded. She has reducible hernia in the ventral area of her stomach as mentioned. MMODL / IJN: [id number] /
[2023-05-27] MEDS: IPRATROPIUM-ALBUTEROL 3 ML NEB INHALATION SCH ×2 (15:50→22:52)
--- NOTE | 2023-05-27 22:10 | P.CONS ---
History of Present Illness - Reason for Consult Consult date: 05/27/23 - History of Present Illness Patient is a 78-year-old female presenting to the hospital 3 days ago for evaluation of increased weakness, patient son called EMS as he was worried that the patient was having failure to thrive patient has been crawling along the floor in her room herself from room to room on arrival EMS the patient was covered in feces and the house was in deplorable condition patient on presentat ion to the hospital was afebrile and no fever has been recorded subsequently patient was not tachycardic or hypotensive or hypoxic patient did have a normal white count D-dimer was mildly elevated creatinine was normal did have elevated liver enzymes as well as elevated troponin screen was mildly positive serum alcohol less than 10 blood culture has been negative no urine cultures was done patient noticed to have lower extremity swelling with concern for possible cellulitis patient was started cefazolin infectious disease was consulted for further management of antibiotic therapy most information has been obtained from review the chart as the patient herself was not a very good historian chest x- ray with no acute cardiopulmonary process Past Medical History Past Medical History: Hyperlipidemia, Liver Disease Additional Past Medical History / Comment(s): Pt recently admitted to [facility] on 03/25/20 with acute abdominal pain with ileus with bilateral inguinal hernia repair/ventral hernia/leukopenia/thrombocytopenia/hyponatremia/elevated bilirubin/chronic liver disease d/t ETOH, acute UTI. Other hx: Post recent bilateral inguinal hernia repair pt developed increased abdominal distention and lasix was increased for this reason, cataract in one eye (laterallity unknown), varicosity R leg, low platelets. History of Any Multi-Drug Resistant Organisms: None Reported Past Surgical History: Cholecystectomy, Orthopedic Surgery Additional Past Surgical History / Comment(s): Bilaeral inguinal hernia repairs, L knee arthroscopic surgery, nasal cauterization for epistaxis, colonoscopy. Past Anesthesia/Blood Transfusion Reactions: No Reported Reaction Past Psychological History: Anxiety, Panic Disorder Smoking Status: Never smoker Past Alcohol Use History: Daily, Heavy Past Drug Use History: None Reported - Past Family History Mother Family Medical History: Asthma Father Family Medical History: Cancer Additional Family Medical History / Comment(s): stomach cancer Medications and Allergies Home Medications Medication Instructions Recorded Confirmed Type Magnesium Oxide [Mag-Ox] 400 mg PO DAILY #30 tab 04/23/20 05/24/23 Rx Sodium Chloride Tab 1 gm PO TID #90 tab 04/23/20 05/24/23 Rx Furosemide [Lasix] 20 mg PO BID 12/05/22 05/24/23 History Multivitamin Powder 1 dose PO DAILY 12/05/22 05/24/23 History Spironolactone [Aldactone] 50 mg PO BID 12/05/22 05/24/23 History Folic Acid 1 mg PO DAILY 90 Days #90 tab 12/13/22 05/24/23 Rx Potassium Chloride ER [K-Dur 20] 40 meq PO DAILY 90 Days #90 tab 12/13/22 05/24/23 Rx Allergies Allergy/AdvReac Type Severity Reaction Status Date / Time diphenhydramine HCl AdvReac Over Verified 05/24/23 14:46 [From Benadryl] sedated Physical Exam Vitals: Vital Signs Temp Pulse Resp BP Pulse Ox 05/27/23 04:00 78 18 128/72 95 05/27/23 02:00 72 05/27/23 00:00 72 18 110/64 96 05/26/23 20:00 98 F 70 18 124/70 95 05/26/23 16:00 84 18 111/64 96 05/26/23 12:00 73 18 129/70 96 Intake and Output 05/26/23 05/27/23 05/27/23 22:59 06:59 14:59 Intake Total 118 Output Total 650 900 Balance -532 -900 Intake: Oral 118 Output: Urine 650 900 Other: Voiding Method Incontinent Incontinent Results CBC & Chem 7: 05/27/23 07:10 05/27/23 07:10 Labs: Abnormal Lab Results - Last 24 Hours (Table) 05/26/23 05/27/23 05/27/23 Range/Units 07:24 07:10 07:10 RBC 3.19 L (3.80-5.40) m/uL Hgb 10.1 L (11.4-16.0) gm/dL Hct 30.9 L (34.0-46.0) % RDW 16.1 H (11.5-15.5) % Plt Count 99 L 105 L (150-450) k/uL Lymphocytes # 0.5 L 0.6 L (1.0-4.8) k/uL Sodium 130 L (137-145) mmol/L Carbon Dioxide 20 L (22-30) mmol/L Glucose 138 H (74-99) mg/dL Calcium 7.7 L (8.4-10.2) mg/dL Total Bilirubin 1.8 H (0.2-1.3) mg/dL AST 141 H (14-36) U/L ALT 36 H (4-34) U/L Alkaline Phosphatase 128 H (38-126) U/L Total Protein 5.7 L (6.3-8.2) g/dL Albumin 2.2 L (3.5-5.0) g/dL Microbiology - Last 24 Hours (Table) 05/24/23 15:31 Blood Culture - Preliminary Blood Assessment and Plan Plan: 1patient presented to hospital with weakness this patient was noticed to have s ignificant for home condition as the patient was covered in feces on the time of arrival to the hospital, patient did not have any fever or elevated white into this admission patient did have swelling to the lower extremity but no evidence of any redness warmth or open wound clinically doubt cellulitis 2 with the patient mental status changes and did have a positive UA but no urine cultures was done 3-we will repeat a UA and cultures clean-catch and check inflammatory markers 4-Rory wrap to lower extremity to keep the swelling down 5-discontinue cefazolin We will follow on clinical condition and cultures to further adjust medication if needed Thank you for this consultation we will follow the patient along with you Dictation was produced using [employer]iff[employer] dictation software. please excuse any gr ammatical, word or spelling errors.
[2023-05-27] MEDS: BUDESONIDE 0.5 MG/2 ML NEBU INHALATION SCH (22:51)
[2023-05-28] MEDS: HEPARIN SODIUM,PORCINE/PF 5,000 UNIT/0.5 ML SYRINGE SQ SCH ×4 (00:54→23:17)
[2023-05-28] MEDS: BUDESONIDE 0.5 MG/2 ML NEBU INHALATION SCH ×2 (08:24→21:21)
[2023-05-28] MEDS: IPRATROPIUM-ALBUTEROL 3 ML NEB INHALATION SCH ×4 (08:24→21:21)
[2023-05-28] MEDS: FOLIC ACID 1 MG TAB PO SCH (09:17)
[2023-05-28] MEDS: FUROSEMIDE 20 MG TAB PO SCH ×2 (09:17→16:33)
[2023-05-28] MEDS: SODIUM CHLORIDE TAB 1 GM TAB PO SCH ×3 (09:17→20:35)
[2023-05-28] MEDS: PANTOPRAZOLE 40 MG/10 ML VIAL IVP SCH (09:17)
[2023-05-28] MEDS: THIAMINE 100 MG TAB PO SCH (09:18)
[2023-05-28] MEDS: MAGNESIUM OXIDE 400 MG TAB PO SCH (09:18)
[2023-05-28] MEDS: POTASSIUM CHLORIDE ER 20 MEQ TAB.ER PO SCH (09:18)
[2023-05-28] MEDS: SODIUM CHLORIDE 0.9% 1,000 ML IV SCH ×2 (09:19→23:13)
[2023-05-28 10:01] LABS: ALT 30 U/L (4-34); AST 109 U/L (14-36); African American GFR (CKD) >90 (>60 ml/min/1.73 sqM); Albumin 2.3 g/dL (3.5-5.0); Alkaline Phosphatase 81 U/L (38-126); Anion Gap 5 mmol/L; Blood Urea Nitrogen 14 mg/dL (7-17); Carbon Dioxide 22 mmol/L (22-30); Chloride 106 mmol/L (98-107); Glucose 105 mg/dL (74-99); Non-African American GFR(CKD) 86 (>60 ml/min/1.73 sqM); Potassium 4.2 mmol/L (3.5-5.1); Sodium 133 mmol/L (137-145); Total Bilirubin 2.2 mg/dL (0.2-1.3); Total Protein 6.1 g/dL (6.3-8.2)
[2023-05-28 10:16] LABS: Anisocytosis Slight; Basophils % (A) 0 %; Eosinophils # (A) 0.3 k/uL (0-0.7); Eosinophils % (A) 6 %; HCT 33.5 % (34.0-46.0); HGB 10.8 gm/dL (11.4-16.0); Hypochromasia Slight; Lymphocytes # (A) 0.8 k/uL (1.0-4.8); Lymphocytes % (A) 19 %; MCH 31.4 pg (25.0-35.0); MCHC 32.3 g/dL (31.0-37.0); MCV 97.4 fL (80.0-100.0); Macrocytosis Slight; Mean Platelet Volume 7.8; Monocytes # (A) 0.4 k/uL (0-1.0); Monocytes % (A) 9 %; Neutrophils # (A) 2.5 k/uL (1.3-7.7); Neutrophils % (A) 63 %; Platelet Count 121 k/uL (150-450); RBC 3.44 m/uL (3.80-5.40); RDW 16.5 % (11.5-15.5)
[2023-05-28] MEDS: MULTIVITAMINS, THERA 1 EACH TAB PO SCH (12:15)
--- NOTE | 2023-05-28 12:43 | P.GSCN ---
History of Present Illness Consult date: 05/28/23 History of present illness: CHIEF COMPLAINT: Weakness HISTORY OF PRESENT ILLNESS: This is a 78-year-old female known history of liver disease secondary to alcohol abuse. She presented to the hospital with weakness and concern for failure to thrive. Apparently patient was covered in feces and urine growing from room to room in her house. Patient was found to have e vidence of acute rhabdomyolysis. Patient is a poor historian. She has a known history of ventral hernia. She was evaluated in November [address] mcfadden and no surgical intervention was planned due to patient being a high-risk surgical candidate. Patient had a computed tomography scan at that time they had shown an anterior abdominal wall hernia containing loops of colon and no evidence of bowel obstruction. Patient denies any abdominal pain. She is tolerating diet. She is having bowel movements. PAST MEDICAL HISTORY: See below PAST SURGICAL HISTORY: See below. Cholecystectomy and bilateral inguinal hernia repair MEDICATIONS: See below ALLERGIES: See below SOCIAL HISTORY: No illicit drug use. REVIEW OF SYSTEMS: CONSTITUTIONAL: Denies fever or chills. HEENT: Denies blurred vision, vision changes, or eye pain. Denies hemoptysis CARDIOVASCULAR: Denies chest pain or pressure. RESPIRATORY: No shortness of breath. GASTROINTESTINAL: See HPI for pertinent findings HEMATOLOGIC: Denies bleeding disorders. GENITOURINARY: Denies any blood in urine or increased urinary frequency. SKIN: Denies pruitis. Denies rash. PHYSICAL EXAM: VITAL SIGNS: Reviewed GENERAL: Well-developed in no acute distress. HEENT: No sclera icterus. Extraocular movements grossly intact. Moist buccal mucosa. Head is atraumatic, normocephalic. No nasal drainage. ABDOMEN: Soft. Nondistended. Reducible ventral hernia. Nontender. NEUROLOGIC: Awake and alert. Confused. LABORATORY DATA: WBC is 4.0 Hgb 10.8 platelets 121 Sodium 129 potassium is 4.1 creatinine 0.74 Lactic acid 1.5 Total bilirubin 2.2 AST 109 ALT 30 alk phos 81 Serum alcohol level less than 10 Elevated CK level IMAGING: Echo normal left ventricle size and systolic function mild mitral and aortic regurgitation. Mild tricuspid regurgitation ASSESSMENT: 1. Reducible Ventral hernia 2. History of alcoholic liver cirrhosis PLAN: -No surgical intervention planned -Continue regular diet -Continue conservative management -Abdominal binder ordered -Surgical service will sign off. Please call for any questions or concerns Physician Bank Clerk note has been reviewed by physician. Signing provider agrees with the documented findings, assessment, and plan of care. I have personally seen and examined the patient, reviewed the FINISHER OPERATOR /PAs history, exam and MDM and agree with the assessment and plan as written. Based on total visit time, I have performed more than 50% of the visit. As above: Patient with cirrhosis and reducible ventral hernia. No abdominal pain or issues currently. We'll sign off. Please have patient follow-up with Dr. Mcfadden after discharge. Reconsult if needed. Past Medical History Past Medical History: Hyperlipidemia, Liver Disease Additional Past Medical History / Comment(s): Pt recently admitted to [facility] on with acute abdominal pain with ileus with bilateral inguinal hernia repair/ventral hernia/leukopenia/thrombocytopenia/hyponatremia/elevated bilirubin/chronic liver disease d/t ETOH, acute UTI. Other hx: Post recent bilateral inguinal hernia repair pt developed increased abdominal distention and lasix was increased for this reason, cataract in one eye (laterallity unknown), varicosity R leg, low platelets. History of Any Multi-Drug Resistant Organisms: None Reported Past Surgical History: Cholecystectomy, Orthopedic Surgery Additional Past Surgical History / Comment(s): Bilaeral inguinal hernia repairs, L knee arthroscopic surgery, nasal cauterization for epistaxis, colonoscopy. Past Anesthesia/Blood Transfusion Reactions: No Reported Reaction Past Psychological History: Anxiety, Panic Disorder Smoking Status: Never smoker Past Alcohol Use History: Daily, Heavy Past Drug Use History: None Reported - Past Family History Mother Family Medical History: Asthma Father Family Medical History: Cancer Additional Family Medical History / Comment(s): stomach cancer Medications and Allergies Home Medications Medication Instructions Recorded Confirmed Type Magnesium Oxide [Mag-Ox] 400 mg PO DAILY #30 tab 04/23/20 05/24/23 Rx Sodium Chloride Tab 1 gm PO TID #90 tab 04/23/20 05/24/23 Rx Furosemide [Lasix] 20 mg PO BID 12/05/22 05/24/23 History Multivitamin Powder 1 dose PO DAILY 12/05/22 05/24/23 History Spironolactone [Aldactone] 50 mg PO BID 12/05/22 05/24/23 History Folic Acid 1 mg PO DAILY 90 Days #90 tab 12/13/22 05/24/23 Rx Potassium Chloride ER [K-Dur 20] 40 meq PO DAILY 90 Days #90 tab 12/13/22 05/24/23 Rx Allergies Allergy/AdvReac Type Severity Reaction Status Date / Time diphenhydramine HCl AdvReac Over Verified 05/24/23 14:46 [From Benadryl] sedated Surgical - Exam Vital Signs Temp Pulse Resp BP Pulse Ox 97.5 F L 80 18 107/42 99 05/24/23 12:24 05/24/23 12:24 05/24/23 12:24 05/24/23 12:24 05/24/23 12:24 Results - Labs 05/28/23 09:06 05/28/23 09:06 Abnormal Lab Results - Last 24 Hours (Table) 05/28/23 05/28/23 Range/Units 09:06 09:06 RBC 3.44 L (3.80-5.40) m/uL Hgb 10.8 L (11.4-16.0) gm/dL Hct 33.5 L (34.0-46.0) % RDW 16.5 H (11.5-15.5) % Plt Count 121 L (150-450) k/uL Lymphocytes # 0.8 L (1.0-4.8) k/uL Sodium 133 L (137-145) mmol/L Glucose 105 H (74-99) mg/dL Calcium 8.0 L (8.4-10.2) mg/dL Total Bilirubin 2.2 H (0.2-1.3) mg/dL AST 109 H (14-36) U/L C-Reactive Protein 3.0 H (<1.0) mg/dL Total Protein 6.1 L (6.3-8.2) g/dL Albumin 2.3 L (3.5-5.0) g/dL Microbiology - Last 24 Hours (Table) 05/24/23 15:31 Blood Culture - Preliminary Blood Diabetes panel 05/28/23 Range/Units 09:06 Sodium 133 L (137-145) mmol/L Potassium 4.2 (3.5-5.1) mmol/L Chloride 106 (98-107) mmol/L Carbon Dioxide 22 (22-30) mmol/L BUN 14 (7-17) mg/dL Creatinine 0.62 (0.52-1.04) mg/dL Glucose 105 H (74-99) mg/dL Calcium 8.0 L (8.4-10.2) mg/dL AST 109 H (14-36) U/L ALT 30 (4-34) U/L Alkaline Phosphatase 81 (38-126) U/L Total Protein 6.1 L (6.3-8.2) g/dL Albumin 2.3 L (3.5-5.0) g/dL Calcium panel 05/28/23 Range/Units 09:06 Calcium 8.0 L (8.4-10.2) mg/dL Albumin 2.3 L (3.5-5.0) g/dL Pituitary panel 05/28/23 Range/Units 09:06 Sodium 133 L (137-145) mmol/L Potassium 4.2 (3.5-5.1) mmol/L Chloride 106 (98-107) mmol/L Carbon Dioxide 22 (22-30) mmol/L BUN 14 (7-17) mg/dL Creatinine 0.62 (0.52-1.04) mg/dL Glucose 105 H (74-99) mg/dL Calcium 8.0 L (8.4-10.2) mg/dL Adrenal panel 05/28/23 Range/Units 09:06 Sodium 133 L (137-145) mmol/L Potassium 4.2 (3.5-5.1) mmol/L Chloride 106 (98-107) mmol/L Carbon Dioxide 22 (22-30) mmol/L BUN 14 (7-17) mg/dL Creatinine 0.62 (0.52-1.04) mg/dL Glucose 105 H (74-99) mg/dL Calcium 8.0 L (8.4-10.2) mg/dL Total Bilirubin 2.2 H (0.2-1.3) mg/dL AST 109 H (14-36) U/L ALT 30 (4-34) U/L Alkaline Phosphatase 81 (38-126) U/L Total Protein 6.1 L (6.3-8.2) g/dL Albumin 2.3 L (3.5-5.0) g/dL
[2023-05-28 17:38] LABS: Appearance,Urine Cloudy (Clear); Bacteria,Urine Moderate /hpf; Bilirubin,Urine Negative (Negative); Blood,Urine Small (Negative); Color,Urine Yellow; Glucose,Urine (UA) Negative (Negative); Ketones,Urine Negative (Negative); Leukocyte Esterase,Urine Large (Negative); Mucus,Urine Rare /hpf; Nitrite,Urine Positive (Negative); PH, Urine 6.5 (5.0-8.0); Protein,Urine Trace (Negative); RBC,Urine 10 /hpf (0-5); Specific Gravity,Urine 1.009 (1.001-1.035); Squamous Epithelial Cell,Urine 2 /hpf (0-4); Urobilinogen,Urine <2.0 mg/dL (<2.0); WBC,Urine 153 /hpf (0-5)
--- NOTE | 2023-05-28 22:58 | CDI ---
Documentation Clarification Form Date: 05/28/2023 From: Yoon Ward Phone: [phone] Admit Date: 05/24/2023 03:05:00 PM Patient Name: Zabrina Gilmore Visit Number: [id number] ATTENTION: The Clinical Documentation Specialists (CDI) and [facility] Coding Staff appreciate your assistance in clarifying documentation. Please respond to the clarification below the line at the bottom and electronically sign. The CDI & [facility] Coding staff will review the response and follow-up if needed. Please note: Queries are made part of the Legal Health Record. If you have any questions, please contact the author of this message via ITS. Dr. Yvon Lentz Your patient has troponin level(s) of: 0.646, 0.326, 0.371. Please clarify if there is an additional diagnosis and/or clinical significance related to this value. Patient history/risk factors: 78yo presented with failure to thrive, pt was found down at home and unable to walk. Clinical indicators: Cardio consult on 05/25 noted elevated troponins, not suggestive of ACS, likely secondary to generalized weakness, inability to ambulate, rhabdomyolysis Echo 05/26: normal LV size and systolic function, EF 55-60% Treatment: Heparin IV, Heparin subQ, Lasix po Is there an additional diagnosis and/or clinical significance related to the above lab result/information: [ ] NSTEMI type 1 [ ] Type 2 GA due to rhabdomyolysis and acute hepatitis [ ] Acute myocardial injury [ ] No additional diagnosis/Not clinically significant [ ] Other, please specify [ ] Unable to determine Reference: [employer] Fourth [place] Definition of Myocardial Infraction Elevated Cardiac Troponin >99th percentile with Troponin rise and/or fall With Acute ischemia o Acute Myocardial Infarction Atherosclerosis thrombosis Type I GA Oxygen supply and demand imbalance Type II GA (Please indicate etiology) Without acute ischemia o Acute Myocardial Injury o Acute Myocardial Injury (Template Last Reviewed: April 2023) MTDD
--- NOTE | 2023-05-28 23:05 | CDI ---
Documentation Clarification Form Date: 05/28/2023 From: Yoon Ward Phone: [phone] Admit Date: 05/24/2023 03:05:00 PM Patient Name: Zabrina Gilmore Visit Number: [id number] ATTENTION: The Clinical Documentation Specialists (CDI) and [facility] Coding Staff appreciate your assistance in clarifying documentation. Please respond to the clarification below the line at the bottom and electronically sign. The CDI & [facility] Coding staff will review the response and follow-up if needed. Please note: Queries are made part of the Legal Health Record. If you have any questions, please contact the author of this message via ITS. Dr. Yvon Lentz Rhabdomyolysis is documented in the record. Additional clarification regarding the type of rhabdomyolysis is requested. History/Risk Factors: : 78yo presented with failure to thrive, pt was found down at home and unable to walk. Per the record, she was pulling herself along the ground using the bloom. Clinical Indicators: H&P noted that she was found crawling on the floor between rooms and was confused. She was diagnosed with acute metabolic encephalopathy, acute rhabdomyolysis, fait dysfunction, and acute hepatitis. Labs: 05/24 CK 5466 - 2858, Trop 0.646-0.371, Na 129, LA 1.5, total bili 4.2, AST 350, ALT 55 Treatment: IVF, monitoring, PT/OT, case management looking for placement at discharge to SNF Please clarify the type of rhabdomyolysis, if known: [ ] Traumatic rhabdomyolysis due to fall [ ] Traumatic rhabdomyolysis due to prolonged immobility [ ] Non traumatic rhabdomyolysis due to other etiology (please specify) [ ] Other, please specify [ ] Unable to Determine (Template Last Revised: December 2020) MTDD
[2023-05-29] MEDS: BUDESONIDE 0.5 MG/2 ML NEBU INHALATION SCH ×2 (08:52→20:52)
[2023-05-29] MEDS: IPRATROPIUM-ALBUTEROL 3 ML NEB INHALATION SCH ×4 (08:53→20:52)
[2023-05-29] MEDS: FOLIC ACID 1 MG TAB PO SCH (09:12)
[2023-05-29] MEDS: HEPARIN SODIUM,PORCINE/PF 5,000 UNIT/0.5 ML SYRINGE SQ SCH ×3 (09:12→23:20)
[2023-05-29] MEDS: MAGNESIUM OXIDE 400 MG TAB PO SCH (09:12)
[2023-05-29] MEDS: POTASSIUM CHLORIDE ER 20 MEQ TAB.ER PO SCH (09:12)
[2023-05-29] MEDS: PANTOPRAZOLE 40 MG/10 ML VIAL IVP SCH (09:12)
[2023-05-29] MEDS: FUROSEMIDE 20 MG TAB PO SCH ×2 (09:12→16:05)
[2023-05-29] MEDS: THIAMINE 100 MG TAB PO SCH (09:12)
[2023-05-29] MEDS: SODIUM CHLORIDE TAB 1 GM TAB PO SCH ×3 (09:13→21:26)
[2023-05-29] MEDS: MULTIVITAMINS, THERA 1 EACH TAB PO SCH (11:45)
--- NOTE | 2023-05-29 15:09 | P.PN ---
Subjective Progress Note Date: 05/28/23 Principal diagnosis: Lower extremity swelling and possible UTI Patient is a 78-year-old female presenting to the hospital 3 days ago for evaluation of increased weakness,on arrival EMS the patient was covered in feces and the house was in deplorable condition, ID consult for possible lower extremity swelling and cellulitis. On today's evaluation that is 05/28/2023, the patient is afebrile, the patient is more awake and alert and is breathing comfortably on room air denies any chest pain shortness of breath or cough no abdominal pain or cream to the lower extremity Patient did have a white count of 4.0, creatinine is 0.62, repeat UA is currently pending though requested yesterday Objective - Vital Signs Vital signs: Vital Signs Temp 97.5 F L 05/27/23 20:00 Pulse 86 05/28/23 12:10 Resp 18 05/28/23 12:10 BP 120/56 05/28/23 12:10 Pulse Ox 97 05/28/23 12:10 FiO2 Intake & Output 05/27/23 05/28/23 05/28/23 18:59 06:59 18:59 Output Total 1800 Balance -1800 Output: Urine 1800 Other: Voiding Method Incontinent Incontinent Incontinent # Voids 1 # Bowel Movements 1 - Exam GENERAL DESCRIPTION: An elderly female lying in bed in no distress RESPIRATORY SYSTEM: Unlabored breathing , decreased breath sounds at bases HEART: S1 S2 regular rate and rhythm , ABDOMEN: Soft , no tenderness EXTREMITIES: One plus edema feet but no redness - Labs CBC & Chem 7: 05/28/23 09:06 05/28/23 09:06 Labs: Abnormal Lab Results - Last 24 Hours (Table) 05/28/23 05/28/23 Range/Units 09:06 09:06 RBC 3.44 L (3.80-5.40) m/uL Hgb 10.8 L (11.4-16.0) gm/dL Hct 33.5 L (34.0-46.0) % RDW 16.5 H (11.5-15.5) % Plt Count 121 L (150-450) k/uL Lymphocytes # 0.8 L (1.0-4.8) k/uL Sodium 133 L (137-145) mmol/L Glucose 105 H (74-99) mg/dL Calcium 8.0 L (8.4-10.2) mg/dL Total Bilirubin 2.2 H (0.2-1.3) mg/dL AST 109 H (14-36) U/L C-Reactive Protein 3.0 H (<1.0) mg/dL Total Protein 6.1 L (6.3-8.2) g/dL Albumin 2.3 L (3.5-5.0) g/dL Microbiology - Last 24 Hours (Table) 05/24/23 15:31 Blood Culture - Preliminary Blood Assessment and Plan (1) Swelling of lower extremity Current Visit: Yes Status: Acute Code(s): M79.89 - OTHER SPECIFIED SOFT TISSUE DISORDERS SNOMED Code(s): 262932532 (2) Urinary tract infection Current Visit: No Status: Acute Code(s): N39.0 - URINARY TRACT INFECTION, SITE NOT SPECIFIED SNOMED Code(s): 13697426 Plan: 1patient presented to hospital with weakness this patient was noticed to have significant for home condition as the patient was covered in feces on the time of arrival to the hospital, patient did not have any fever or elevated white into this admission patient did have swelling to the lower extremity but no evidence of any redness warmth or open wound clinically doubt cellulitis 2 with the patient mental status changes and did have a positive UA but no urine cultures was done, we currently waiting for repeat UA and cultures 3-patient has been advised wrap to lower extremity to keep the swelling down Dictation was produced using [employer] dictation software. please excuse any gra mmatical, word or spelling errors. Time with Patient: Less than 30
--- NOTE | 2023-05-29 15:10 | P.PN ---
Subjective Progress Note Date: 05/29/23 Principal diagnosis: Lower extremity swelling and possible UTI Patient is a 78-year-old female presenting to the hospital 3 days ago for evaluation of increased weakness,on arrival EMS the patient was covered in feces and the house was in deplorable condition, ID consult for possible lower extremity swelling and cellulitis. On today's evaluation that is 05/29/2023, the patient remains to be afebrile, the patient is breathing comfortably on room air, the patient denies any chest pain shortness of breath or cough no abdominal pain or cream to the lower extremity Patient did have a white count of 4.0, creatinine is 0.62 as of yesterday no lab work was done, repeat UA is significantly positive Objective - Vital Signs Vital signs: Vital Signs Temp 97.8 F 05/29/23 09:00 Pulse 85 05/29/23 09:00 Resp 18 05/29/23 09:00 BP 134/62 05/29/23 09:00 Pulse Ox 99 05/29/23 09:00 FiO2 Intake & Output 05/28/23 05/29/23 05/29/23 18:59 06:59 18:59 Output Total 450 650 400 Balance -450 -650 -400 Output: Urine 450 650 400 Other: Voiding Method Incontinent Incontinent Incontinent External Catheter External Catheter # Voids 1 # Bowel Movements 1 1 - Exam GENERAL DESCRIPTION: An elderly female lying in bed in no distress RESPIRATORY SYSTEM: Unlabored breathing , decreased breath sounds at bases HEART: S1 S2 regular rate and rhythm , ABDOMEN: Soft , no tenderness EXTREMITIES: One plus edema feet but no redness - Labs CBC & Chem 7: 05/28/23 09:06 05/28/23 09:06 Labs: Abnormal Lab Results - Last 24 Hours (Table) 05/28/23 05/29/23 Range/Units 17:00 08:33 Ammonia 48 H (<30) umol/L Urine Appearance Cloudy H (Clear) Urine Protein Trace H (Negative) Urine Blood Small H (Negative) Urine Nitrite Positive H (Negative) Ur Leukocyte Esterase Large H (Negative) Urine RBC 10 H (0-5) /hpf Urine WBC 153 H (0-5) /hpf Urine WBC Clumps Rare H (None) /hpf Urine Bacteria Moderate H (None) /hpf Urine Mucus Rare H (None) /hpf Assessment and Plan (1) Swelling of lower extremity Current Visit: Yes Status: Acute Code(s): M79.89 - OTHER SPECIFIED SOFT TISSUE DISORDERS SNOMED Code(s): 176673568 (2) Urinary tract infection Current Visit: No Status: Acute Code(s): N39.0 - URINARY TRACT INFECTION, SITE NOT SPECIFIED SNOMED Code(s): 56241147 Plan: 1patient presented to hospital with weakness this patient was noticed to have significant for home condition as the patient was covered in feces on the time of arrival to the hospital, patient did not have any fever or elevated white into this admission patient did have swelling to the lower extremity but no evidence of any redness warmth or open wound clinically doubt cellulitis 2 with the patient mental status changes and did have a positive UA but no urine cultures was done, repeat UA is positive started on Rocephin to continue while waiting for the cultures to finalize 3-patient has been advised wrap to lower extremity to keep the swelling down Dictation was produced using [employer] dictation software. please excuse any grammatical, word or spelling errors. Time with Patient: Less than 30
[2023-05-29] MEDS: LACTULOSE 20 GM/30 ML CUP PO SCH ×2 (16:05→21:26)
[2023-05-29] MEDS: SODIUM CHLORIDE 0.9% 1,000 ML IV SCH ×2 (16:06→23:22)
--- NOTE | 2023-05-29 18:54 | PN ---
PROGRESS NOTE ADDENDUM: Nontraumatic rhabdomyolysis. MMODL / IJN: [id number] /
--- NOTE | 2023-05-29 18:57 | PN ---
PROGRESS NOTE ADDENDUM: 1. Type 2 myocardial infarction due to rhabdomyolysis. 2. [id number] hepatitis. MMODL / IJN: [id number] /
--- NOTE | 2023-05-29 19:04 | PN ---
PROGRESS NOTE SUBJECTIVE: Zabrina Gilmore is being treated for UTI, cellulitis of legs, elevated ammonia levels, hepatic encephalopathy. Starting on lactulose 25 t.i.d. today for an ammonia level of 43. White count is 4, hemoglobin is 10.8. Bilirubin is a little bit elevated today from 1.8 up to 2.2. AST is 109, ALT is 30, albumin is 2.3. UA shows a lot of white cells. Wait for urine culture. She is on broad-spectrum antibiotics. OBJECTIVE: GENERAL: She is alert and oriented x3. CARDIOVASCULAR: S1 and S2. LUNGS: Clear. GI: Soft. Mild distention. HEMATOLOGY: 2+ edema. ASSESSMENT: 1. Urinary tract infection. 2. Cirrhosis. 3. Hepatic encephalopathy. 4. Chronic obstructive pulmonary disease. PLAN: Continue on Rocephin. Wait for final cultures. Continue on lactulose. Prognosis is guarded. MMODL / IJN: [id number] /
[2023-05-30] MEDS: BUDESONIDE 0.5 MG/2 ML NEBU INHALATION SCH ×2 (08:43→21:11)
[2023-05-30] MEDS: IPRATROPIUM-ALBUTEROL 3 ML NEB INHALATION SCH ×4 (08:43→21:11)
[2023-05-30 08:56] LABS: ALT 20 U/L (4-34); AST 65 U/L (14-36); African American GFR (CKD) >90 (>60 ml/min/1.73 sqM); Albumin 2.3 g/dL (3.5-5.0); Alkaline Phosphatase 90 U/L (38-126); Anion Gap 5 mmol/L; Blood Urea Nitrogen 11 mg/dL (7-17); Calcium 7.9 mg/dL (8.4-10.2); Carbon Dioxide 23 mmol/L (22-30); Chloride 105 mmol/L (98-107); Glucose 118 mg/dL (74-99); Non-African American GFR(CKD) 85 (>60 ml/min/1.73 sqM); Sodium 133 mmol/L (137-145); Total Bilirubin 2.7 mg/dL (0.2-1.3)
[2023-05-30 09:30] LABS: Anisocytosis Slight; Basophils % (A) 0 %; Eosinophils # (A) 0.1 k/uL (0-0.7); Eosinophils % (A) 4 %; HCT 33.8 % (34.0-46.0); HGB 11.1 gm/dL (11.4-16.0); Lymphocytes # (A) 0.8 k/uL (1.0-4.8); Lymphocytes % (A) 20 %; MCH 31.1 pg (25.0-35.0); MCHC 32.8 g/dL (31.0-37.0); MCV 94.6 fL (80.0-100.0); Monocytes # (A) 0.4 k/uL (0-1.0); Monocytes % (A) 11 %; Neutrophils # (A) 2.6 k/uL (1.3-7.7); Neutrophils % (A) 63 %; Platelet Count 128 k/uL (150-450); RBC 3.57 m/uL (3.80-5.40); RDW 17.1 % (11.5-15.5); WBC 4.1 k/uL (3.8-10.6)
[2023-05-30] MEDS: PANTOPRAZOLE 40 MG/10 ML VIAL IVP SCH (09:43)
[2023-05-30] MEDS: FOLIC ACID 1 MG TAB PO SCH (09:44)
[2023-05-30] MEDS: FUROSEMIDE 20 MG TAB PO SCH ×2 (09:44→15:27)
[2023-05-30] MEDS: MAGNESIUM OXIDE 400 MG TAB PO SCH (09:44)
[2023-05-30] MEDS: SODIUM CHLORIDE TAB 1 GM TAB PO SCH ×3 (09:44→21:40)
[2023-05-30] MEDS: HEPARIN SODIUM,PORCINE/PF 5,000 UNIT/0.5 ML SYRINGE SQ SCH ×2 (09:44→15:27)
[2023-05-30] MEDS: POTASSIUM CHLORIDE ER 20 MEQ TAB.ER PO SCH (09:44)
[2023-05-30] MEDS: THIAMINE 100 MG TAB PO SCH (09:44)
[2023-05-30] MEDS: LACTULOSE 20 GM/30 ML CUP PO SCH ×3 (09:45→21:40)
[2023-05-30] MEDS ORDERED: HYDROcodone/APAP 5-325MG 1 EACH TAB PO PRN (10:33)
[2023-05-30] MEDS: MULTIVITAMINS, THERA 1 EACH TAB PO SCH (10:58)
[2023-05-30 12:29] VITALS: BMI 30.2
[2023-05-30 17:50] VITALS: RESP 17
[2023-05-30] MEDS: SODIUM CHLORIDE 0.9% 1,000 ML IV SCH (18:07)
[2023-05-30 20:01] LABS: Glucose,Whole Blood 107 mg/dL (70-110)
[2023-05-30] MEDS ORDERED: IOPAMIDOL CONTRAST (ORAL USE) VIAL PO PRN (23:35)
[2023-05-31] MEDS: HEPARIN SODIUM,PORCINE/PF 5,000 UNIT/0.5 ML SYRINGE SQ SCH ×2 (02:19→12:45)
[2023-05-31 06:12] LABS: Glucose,Whole Blood 96 mg/dL (70-110)
[2023-05-31 08:17] LABS: Anisocytosis Slight; Basophils % (A) 0 %; Eosinophils # (A) 0.1 k/uL (0-0.7); Eosinophils % (A) 4 %; HCT 33.4 % (34.0-46.0); HGB 10.9 gm/dL (11.4-16.0); Lymphocytes # (A) 0.8 k/uL (1.0-4.8); Lymphocytes % (A) 21 %; MCH 30.9 pg (25.0-35.0); MCHC 32.7 g/dL (31.0-37.0); MCV 94.6 fL (80.0-100.0); Mean Platelet Volume 7.7; Monocytes # (A) 0.5 k/uL (0-1.0); Monocytes % (A) 14 %; Neutrophils # (A) 2.1 k/uL (1.3-7.7); Neutrophils % (A) 58 %; Platelet Count 123 k/uL (150-450); Poikilocytosis Slight; RBC 3.52 m/uL (3.80-5.40); RDW 17.3 % (11.5-15.5); WBC 3.6 k/uL (3.8-10.6)
[2023-05-31 08:23] LABS: ALT 20 U/L (4-34); AST 57 U/L (14-36); African American GFR (CKD) >90 (>60 ml/min/1.73 sqM); Albumin 2.2 g/dL (3.5-5.0); Alkaline Phosphatase 70 U/L (38-126); Anion Gap 4 mmol/L; Blood Urea Nitrogen 11 mg/dL (7-17); Calcium 7.8 mg/dL (8.4-10.2); Carbon Dioxide 22 mmol/L (22-30); Chloride 106 mmol/L (98-107); Glucose 99 mg/dL (74-99); Non-African American GFR(CKD) 86 (>60 ml/min/1.73 sqM); Potassium 4.2 mmol/L (3.5-5.1); Sodium 132 mmol/L (137-145); Total Bilirubin 2.6 mg/dL (0.2-1.3); Total Protein 5.9 g/dL (6.3-8.2)
--- NOTE | 2023-05-31 08:26 | CT ---
EXAMINATION TYPE: CT chest abdomen wo/w con CT DLP: 1414 mGycm, Automated exposure control for dose reduction was used. DATE OF EXAM: 05/31/2023 5:41 AM COMPARISON: CT abdomen pelvis 12/06/2022 most recent CLINICAL INDICATION:Female, 78 years old with history of high bilirubin/copd; Technique: Multiple axial images of the chest, abdomen, and pelvis were obtained. Two-dimensional cor onal and sagittal reconstructions were obtained. Contrast used: mL of none Oral contrast used: None Findings: CHEST: LUNGS/ PLEURA: Small left pleural effusion. No focal consolidation, pneumothorax perfusion. No right pleural effusion. AIRWAY: Patent and unremarkable. HEART: There is mildly enlarged for size. Mitral valve annular cusp patient's. MEDIASTINUM: No gross evidence of adenopathy. VASCULATURE: No aortic aneurysm. Atherosclerosis of the arterial vasculature. MUSCULOSKELETAL: No acute osseous abnormalities. SOFT TISSUES/LYMPH NODES: Unremarkable. LOWER NECK: No significant findings. ABDOMEN: ABDOMEN LIVER: Nodular contour to liver. GALLBLADDER AND BILE DUCTS: The gallbladder surgically absent. PANCREAS: Unremarkable. SPLEEN: The spleen is enlarged measuring up to 14.9 cm. ADRENAL GLANDS: Unremarkable. KIDNEYS AND URETERS: No evidence of hydronephrosis or renal calculus. The ureters are unremarkable. STOMACH AND BOWEL: No evidence of bowel obstruction. PERITONEUM: No evidence of pneumoperitoneum or free fluid. VASCULATURE: Mild atherosclerotic calcifications are present throughout the abdominal aorta and its b ranches. MUSCULOSKELETAL: No acute osseous abnormalities. Mild disc degeneration changes are present throughou t the thoracolumbar spine. Stable compression deformity of the L1 vertebral body. LYMPH NODES: No gross evidence for lymphadenopathy. SOFT TISSUE/ABDOMINAL WALL: Unremarkable IMPRESSION: 1. Hepatic cirrhosis with evidence of portal hypertension including splenomegaly ascites and third s pacing of fluid. 2. Trace left pleural effusion.
--- NOTE | 2023-05-31 08:31 | PN ---
PROGRESS NOTE SUBJECTIVE: This is an 78-year-old white female with cirrhosis, hyponatremia, acute on chronic anemia. Calcium 7.9, total bilirubin is 2.7, elevated from 2.2. We can get consult with GI for cirrhosis. Ammonia level is 48, we are going to repeat that in the morning, PT OT are going to get involved. Wait for urine culture to come back. Looks like it is gram-negative bacilli so far. She remains on Rocephin, wait for final cultures. PT/OT once again involved, possible prison placement with . GI consult involved for cirrhosis with metabolic and hepatic encephalopathy and gram- negative bacilli UTI. Continue diuresis for cirrhosis, breathing treatments for COPD, etc. PROGNOSIS: Guarded. Please see further orders. Discussed with the son who wants her in the rehab center. MMKRYSTLEL / IJN: [id number] /
[2023-05-31] MEDS: BUDESONIDE 0.5 MG/2 ML NEBU INHALATION SCH ×2 (09:37→23:46)
[2023-05-31] MEDS: IPRATROPIUM-ALBUTEROL 3 ML NEB INHALATION SCH ×4 (09:37→23:47)
[2023-05-31] MEDS: PANTOPRAZOLE 40 MG/10 ML VIAL IVP SCH (10:08)
[2023-05-31] MEDS: MAGNESIUM OXIDE 400 MG TAB PO SCH (10:09)
[2023-05-31] MEDS: FOLIC ACID 1 MG TAB PO SCH (10:09)
[2023-05-31] MEDS: LACTULOSE 20 GM/30 ML CUP PO SCH ×3 (10:09→21:08)
[2023-05-31] MEDS: POTASSIUM CHLORIDE ER 20 MEQ TAB.ER PO SCH (10:09)
[2023-05-31] MEDS: FUROSEMIDE 20 MG TAB PO SCH ×2 (10:09→17:15)
[2023-05-31] MEDS: THIAMINE 100 MG TAB PO SCH (10:10)
[2023-05-31] MEDS: SODIUM CHLORIDE TAB 1 GM TAB PO SCH ×2 (10:10→17:16)
[2023-05-31 11:25] LABS: Glucose,Whole Blood 97 mg/dL (70-110)
--- NOTE | 2023-05-31 12:36 | US ---
EXAMINATION TYPE: US abdomen limited DATE OF EXAM: 05/31/2023 COMPARISON: NONE CLINICAL INDICATION: Female, 78 years old with history of evaluate for ascites for paracentesis; dist ended abd, alcoholic FINDINGS AND IMPRESSION: Trace amount of ascites seen
--- NOTE | 2023-05-31 13:51 | P.CONS ---
History of Present Illness - Reason for Consult Consult date: 05/31/23 Cirrhosis Requesting physician: Yvon Lentz - Chief Complaint Weakness, confusion - History of Present Illness This 78-year-old female with a past medical history of cirrhosis of the liver secondary to alcohol abuse and hyperlipidemia who was brought in by EMS for weakness. Apparently the patient's son called EMS due to being worried about the patient with increased weakness and failure to thrive. She was found crawling along the floor in order to move herself from room to room and when EMS, there she was covered in feces in the house wasn't deplorable conditions. Patient was admitted with acute rhabdomyolysis. Patient has been here since 05/24/2023, she was found to have elevated ammonia level yesterday. She has been started on lactulose 20 mg 3 times a day. Gastroenterology was consulted for liver cirrhosis. She had a CT of the abdomen and chest reporting hepatic cirrhosis with evidence of portal hypertension including splenomegaly and ascites and third spacing of fluid. Trace left pleural effusion. Patient currently denies any abdominal pain nausea or vomiting. She is quite lethargic. She is not answering many questions. She states that she has known liver cirrhosis due to alcohol but states that she has not drank in many years. She denies any previous history of ascites or paracentesis. Today's labs WBC 3.6 hemoglobin 10.9 hematocrit 33 platelet count 123,000 total bilirubin 2.6 AST 57 ALT 20 alkaline phosphatase 70 ammonia 21 Review of Systems ROS unobtainable: due to mental status Past Medical History Past Medical History: Hyperlipidemia, Liver Disease Additional Past Medical History / Comment(s): Pt recently admitted to [facility] on 03/25/20 with acute abdominal pain with ileus with bilateral inguinal hernia repair/ventral hernia/leukopenia/thrombocytopenia/hyponatremia/elevated bilirubin/chronic liver disease d/t ETOH, acute UTI. Other hx: Post recent bilateral inguinal hernia repair pt developed increased abdominal distention and lasix was increased for this reason, cataract in one eye (laterallity unknown), varicosity R leg, low platelets. History of Any Multi-Drug Resistant Organisms: None Reported Past Surgical History: Cholecystectomy, Orthopedic Surgery Additional Past Surgical History / Comment(s): Bilaeral inguinal hernia repairs, L knee arthroscopic surgery, nasal cauterization for epistaxis, colonoscopy. Past Anesthesia/Blood Transfusion Reactions: No Reported Reaction Past Psychological History: Anxiety, Panic Disorder Smoking Status: Never smoker Past Alcohol Use History: Daily, Heavy Past Drug Use History: None Reported - Past Family History Mother Family Medical History: Asthma Father Family Medical History: Cancer Additional Family Medical History / Comment(s): stomach cancer Medications and Allergies Home Medications Medication Instructions Recorded Confirmed Type Magnesium Oxide [Mag-Ox] 400 mg PO DAILY #30 tab 04/23/20 05/24/23 Rx Sodium Chloride Tab 1 gm PO TID #90 tab 04/23/20 05/24/23 Rx Furosemide [Lasix] 20 mg PO BID 12/05/22 05/24/23 History Multivitamin Powder 1 dose PO DAILY 12/05/22 05/24/23 History Spironolactone [Aldactone] 50 mg PO BID 12/05/22 05/24/23 History Folic Acid 1 mg PO DAILY 90 Days #90 tab 12/13/22 05/24/23 Rx Potassium Chloride ER [K-Dur 20] 40 meq PO DAILY 90 Days #90 tab 12/13/22 05/24/23 Rx Allergies Allergy/AdvReac Type Severity Reaction Status Date / Time diphenhydramine HCl AdvReac Over Verified 05/24/23 14:46 [From Benadryl] sedated Physical Exam Vitals: Vital Signs Temp Pulse Resp BP Pulse Ox 05/31/23 03:52 99 17 157/68 98 05/31/23 00:00 92 17 145/74 98 05/30/23 20:37 98.0 F 99 17 138/80 97 05/30/23 15:25 86 17 133/61 100 05/30/23 10:55 99 18 135/60 97 Intake and Output 05/30/23 05/31/23 05/31/23 22:59 06:59 14:59 Output Total 150 Balance -150 Output: Urine 150 Other: Voiding Method Incontinent Incontinent External Catheter External Catheter General appearance: The patient is lethargic, does open eyes to stimuli. Appears in no acute distress. HET: Head is normocephalic and atraumatic. Conjunctiva pink. Sclera anicteric. Neck: Supple without lymphadenopathy. Trachea midline. Heart: S1 S2. Regular rate and rhythm. Lungs: Clear to auscultation. Abdomen: Soft, nontender, nondistended with bowel sounds. No guarding or rigidity. Skin: No rashes. Mild jaundice. Extremities: Normal skin color and turgor. No pedal edema. Neurological: The patient is lethargic, easily arousable however does not partake in conversation her history much. Results CBC & Chem 7: 05/31/23 07:45 05/31/23 07:45 Labs: Abnormal Lab Results - Last 24 Hours (Table) 05/31/23 05/31/23 Range/Units 07:45 07:45 WBC 3.6 L (3.8-10.6) k/uL RBC 3.52 L (3.80-5.40) m/uL Hgb 10.9 L (11.4-16.0) gm/dL Hct 33.4 L (34.0-46.0) % RDW 17.3 H (11.5-15.5) % Plt Count 123 L (150-450) k/uL Lymphocytes # 0.8 L (1.0-4.8) k/uL Sodium 132 L (137-145) mmol/L Calcium 7.8 L (8.4-10.2) mg/dL Total Bilirubin 2.6 H (0.2-1.3) mg/dL AST 57 H (14-36) U/L Total Protein 5.9 L (6.3-8.2) g/dL Albumin 2.2 L (3.5-5.0) g/dL Microbiology - Last 24 Hours (Table) 05/28/23 17:00 Urine Culture - Preliminary Urine,Voided Gram Neg Bacilli Assessment and Plan (1) Alcoholic cirrhosis of liver with ascites Narrative/Plan: 78-year-old female with long-standing history of alcohol abuse presented to the hospital with weakness, failure to thrive, and admitted with acute rhabdomyolysis, altered mental status changes, UTI. CT abdomen and pelvis shows cirrhotic liver with portal hypertension. Patient with long-standing history of alcoholism and alcoholic cirrhosis of the liver. Patient now with hepatic encephalopathy and portal hypertension consistent with decompensated cirrhosis of the liver. Ammonia level elevated at 48 however patient continues on lactulose and repeat level today is 21. Continue symptomatic and supportive care. Recommend alcohol abstinence and continue lactulose. Ultrasound obtained with trace amount of fluid, no need for paracentesis. Current Visit: Yes Status: Acute Code(s): K70.31 - ALCOHOLIC CIRRHOSIS OF LIVER WITH ASCITES SNOMED Code(s): 850979563 (2) Hepatic encephalopathy Current Visit: Yes Status: Acute Code(s): K76.82 - HEPATIC ENCEPHALOPATHY SNOMED Code(s): 31136462 (3) Bilateral lower leg cellulitis Current Visit: Yes Status: Acute Code(s): L03.116 - CELLULITIS OF LEFT LOWER LIMB; L03.115 - CELLULITIS OF RIGHT LOWER LIMB SNOMED Code(s): 664314041 (4) Rhabdomyolysis Current Visit: Yes Status: Acute Code(s): M62.82 - RHABDOMYOLYSIS SNOMED Code(s): 569465259 (5) Urinary tract infection Current Visit: No Status: Acute Code(s): N39.0 - URINARY TRACT INFECTION, SITE NOT SPECIFIED SNOMED Code(s): 80669284 Plan: 1. Continue symptomatic and supportive care 2. Continue lactulose 20 g 3 times a day 3. Abdominal ultrasound ordered to evaluate for ascites, only trace ascites present. No need for paracentesis 4. Recommend alcohol abstinence 5. Recommend outpatient follow-up with gastroenterology for chronic alcoholic liver cirrhosis 6. No further workup indicated Thank you for this consultation, we will sign off at this time. Dr. Ruddy Wheeler I agree with the dictator's note, documented as a scribe by Nataliya Gill.
[2023-05-31] MEDS ORDERED: HEPARIN SODIUM,PORCINE 5,000 UNIT/ML 1 ML VIAL SQ SCH (16:00)
[2023-05-31 16:17] LABS: Glucose,Whole Blood 99 mg/dL (70-110)
[2023-05-31] MEDS: SODIUM CHLORIDE 0.9% 1,000 ML IV SCH ×2 (17:02→18:31)
[2023-05-31] MEDS: MULTIVITAMINS, THERA 1 EACH TAB PO SCH (17:15)
[2023-05-31 20:09] LABS: Glucose,Whole Blood 131 mg/dL (70-110)
[2023-05-31] MEDS: ENOXAPARIN 40 MG/0.4 ML SYRINGE SQ SCH (21:12)
[2023-06-01] MEDS: SODIUM CHLORIDE TAB 1 GM TAB PO SCH ×3 (00:55→16:06)
[2023-06-01 06:05] LABS: Glucose,Whole Blood 108 mg/dL (70-110)
[2023-06-01] MEDS: ENOXAPARIN 40 MG/0.4 ML SYRINGE SQ SCH (09:16)
[2023-06-01] MEDS: THIAMINE 100 MG TAB PO SCH (09:16)
[2023-06-01] MEDS: FUROSEMIDE 20 MG TAB PO SCH ×2 (09:16→16:05)
[2023-06-01] MEDS: POTASSIUM CHLORIDE ER 20 MEQ TAB.ER PO SCH (09:16)
[2023-06-01] MEDS: FOLIC ACID 1 MG TAB PO SCH (09:16)
[2023-06-01] MEDS: MAGNESIUM OXIDE 400 MG TAB PO SCH (09:16)
[2023-06-01] MEDS: PANTOPRAZOLE 40 MG/10 ML VIAL IVP SCH (09:17)
[2023-06-01] MEDS: LACTULOSE 20 GM/30 ML CUP PO SCH ×2 (09:18→16:05)
[2023-06-01] MEDS: BUDESONIDE 0.5 MG/2 ML NEBU INHALATION SCH (09:22)
[2023-06-01] MEDS: IPRATROPIUM-ALBUTEROL 3 ML NEB INHALATION SCH ×3 (09:22→16:13)
[2023-06-01 09:47] VITALS: PULSE 101
[2023-06-01 10:57] LABS: Anisocytosis Slight; Basophils % (A) 0 %; Eosinophils # (A) 0.2 k/uL (0-0.7); Eosinophils % (A) 4 %; HCT 33.2 % (34.0-46.0); Hypochromasia Slight; Lymphocytes # (A) 0.8 k/uL (1.0-4.8); Lymphocytes % (A) 22 %; MCHC 33.2 g/dL (31.0-37.0); MCV 96.3 fL (80.0-100.0); Macrocytosis Slight; Mean Platelet Volume 7.6; Monocytes # (A) 0.3 k/uL (0-1.0); Monocytes % (A) 9 %; Neutrophils # (A) 2.1 k/uL (1.3-7.7); Neutrophils % (A) 62 %; Platelet Count 105 k/uL (150-450); Poikilocytosis Slight; RBC 3.44 m/uL (3.80-5.40); RDW 17.2 % (11.5-15.5); WBC 3.4 k/uL (3.8-10.6)
[2023-06-01 11:31] LABS: Glucose,Whole Blood 164 mg/dL (70-110)
[2023-06-01 11:47] LABS: ALT 24 U/L (4-34); African American GFR (CKD) >90 (>60 ml/min/1.73 sqM); Anion Gap 4 mmol/L; Blood Urea Nitrogen 12 mg/dL (7-17); Calcium 7.8 mg/dL (8.4-10.2); Carbon Dioxide 22 mmol/L (22-30); Chloride 106 mmol/L (98-107); Glucose 158 mg/dL (74-99); Non-African American GFR(CKD) 85 (>60 ml/min/1.73 sqM); Sodium 132 mmol/L (137-145)
[2023-06-01 12:10] LABS: AST 81 U/L (14-36); Alkaline Phosphatase 74 U/L (38-126); Potassium 5.1 mmol/L (3.5-5.1)
--- NOTE | 2023-06-01 14:20 | DS ---
DISCHARGE SUMMARY HOSPITAL COURSE: Zabrina is an 78-year-old who come in with hepatic encephalopathy, cirrhosis, cellulitis of legs, UTI. Urine culture came back gram-negative bacilli. Wait for final culture to come back. Otherwise continue on Rocephin 1 g daily for 7 days. HOME MEDICINES: 1. Lovenox 40 mg subcu daily. 2. Multivitamin daily. 3. Pulmicort 0.5 mg nebulizer b.i.d. 4. DuoNeb q.i.d. nebulizers regularly scheduled. 5. [place] 5/325 every 6 p.r.n. 6. Thiamine 100 mg daily. 7. Mag oxide 400 mg daily. 8. Sodium chloride 1 g t.i.d. 9. Aldactone 50 b.i.d. 10.Folic acid 1 mg daily. 11.K-Dur 40 mEq daily. 12.Lasix 20 b.i.d. 13.Lactulose 20 g t.i.d. CONDITION: Stable. PROGNOSIS: Guarded. Follow up with [facility] due to inability to walk. Her ammonia levels near discharge was 40, will continue on lactulose 3 times a day for elevated ammonia levels. Breathing treatments for COPD. Prognosis guarded. Follow up in next 24 to 48 hours for possible discharge to the [facility] under Dr. Lentz's care. MMODL / IJN: [id number] /
--- NOTE | 2023-06-01 14:35 | PN ---
PROGRESS NOTE SUBJECTIVE: This is a white female, 78 years old. She has refused to go to the half-way, but she says she has been up walking and nurse says it takes 2 people to move her, for inability to walk, she will have to go to the rehab center. She is unable to walk. Her lactulose has cleared her mind up. Her ammonia levels are lower. Vital signs are better. Her cellulitis, leg edema, cirrhosis, and swelling, are decreased. Her hepatic encephalopathy is improving. OBJECTIVE: CARDIOVASCULAR: S1, S2. LUNGS: Decreased breath sounds x4. HEMATOLOGY: Negative for Homans. EXTREMITIES: 2+ edema. ASSESSMENT: Cirrhosis, COPD, hypertension, hepatic encephalopathy. Continue current treatments, PT OT, [id number]. PT OT in the half-way will be needed as she is not doing well, she is not able to walk. MMKRYSTLEL / BALTAZARN: [id number] /
[2023-06-01 14:50] VITALS: BP 146/61; TEMP 98.4
[2023-06-01] MEDS ORDERED: CEFEPIME 2 GM in SODIUM CHLORIDE 0.9% 100 ML IVPB SCH (15:00)
[2023-06-01] MEDS: SODIUM CHLORIDE 0.9% 1,000 ML IV SCH (16:05)
[2023-06-01] MEDS: MULTIVITAMINS, THERA 1 EACH TAB PO SCH (16:05)
[2023-06-01 16:18] LABS: Glucose,Whole Blood 164 mg/dL (70-110)
[2023-06-02] MEDS ORDERED: PANTOPRAZOLE 40 MG TABLET PO SCH (09:00)
== END 2023-06-01 16:27 | DRG 441 ==
LOC: EC 12:16 → 3SCARD 15:05
PROVIDERS: ADMIT Family Medicine; ATTEND Family Medicine
PROC: HZ2ZZZZ Detoxification Services for Substance Abuse Treatment (ICD-10-PCS; principal; 2023-05-25)
DX: K76.82 Hepatic encephalopathy (principal); G93.41 Metabolic encephalopathy; I21.A1 Myocardial infarction type 2; K76.6 Portal hypertension; L03.115 Cellulitis of right lower limb; N39.0 Urinary tract infection, site not specified; L03.116 Cellulitis of left lower limb; M62.82 Rhabdomyolysis; E87.1 Hypo-osmolality and hyponatremia; E87.20 Acidosis, unspecified; Z16.24 Resistance to multiple antibiotics; D62 Acute posthemorrhagic anemia; K73.8 Other chronic hepatitis, not elsewhere classified; K70.31 Alcoholic cirrhosis of liver with ascites; F10.20 Alcohol dependence, uncomplicated; J44.9 Chronic obstructive pulmonary disease, unspecified; R62.7 Adult failure to thrive; I10 Essential (primary) hypertension; Z68.30 Body mass index [BMI] 30.0-30.9, adult; B96.89 Other specified bacterial agents as the cause of diseases classified elsewhere; S51.011A Laceration without foreign body of right elbow, initial encounter; M79.89 Other specified soft tissue disorders; E78.5 Hyperlipidemia, unspecified; F41.9 Anxiety disorder, unspecified; R26.2 Difficulty in walking, not elsewhere classified; R16.1 Splenomegaly, not elsewhere classified; R53.1 Weakness; R60.0 Localized edema; Y90.0 Blood alcohol level of less than 20 mg/100 ml; Z79.899 Other long term (current) drug therapy; Z88.8 Allergy status to other drugs, medicaments and biological substances; Z80.0 Family history of malignant neoplasm of digestive organs
CPT/HCPCS: 36415; 70450; 71046; 71270; 72125; 72170; 74170; 76705; 80048; 80053; 80320; 81001; 82140; 82550; 83605; 83735; 83880; 84075; 84443; 84450; 84460; 84484; 85025; 85379; 85610; 85730; 86140; 87040; 87077; 87086; 87186; 93005; 93306; 96361; 96365; 96366; 96367; 96372; 96375; 99285